=== PATIENT | male | born 1980 | race Caucasian/White ===

== ENCOUNTER 2017-10-15 15:56 | Inpatient (IN) | payer OTHER ==
[2017-10-15] MEDS ORDERED: SODIUM CHLORIDE 0.9% 1,000 ML IV STA ×2 (16:32)
[2017-10-15] MEDS ORDERED: MORPHINE SULFATE 4 MG/0.8 ML SYRINGE (INJ) IVP STA (16:32)
[2017-10-15] MEDS ORDERED: ONDANSETRON 4 MG/2 ML VIAL IVP STA (16:33)
[2017-10-15] MEDS ORDERED: ONDANSETRON 4 MG/2 ML VIAL IVP PRN (16:33)
[2017-10-15] MEDS ORDERED: PANTOPRAZOLE 40 MG/10 ML VIAL IVP STA (16:33)
--- NOTE | 2017-10-15 16:45 | ED ---
General Adult HPI - General Chief complaint: Abdominal Pain Stated complaint: Abd pain Time Seen by Provider: 10/15/17 16:12 Source: patient, EMS Mode of arrival: EMS Limitations: no limitations - Related Data Home Medications Medication Instructions Recorded Confirmed Dextroamphetamine/Amphetamine 10 mg PO QAM 10/15/17 10/15/17 [Adderall Xr] Allergies Allergy/AdvReac Type Severity Reaction Status Date / Time No Known Allergies Allergy Verified 10/15/17 16:06 Review of Systems ROS Statement: Those systems with pertinent positive or pertinent negative responses have been documented in the HPI. ROS Other: All systems not noted in ROS Statement are negative. Past Medical History Additional Past Medical History / Comment(s): hep C History of Any Multi-Drug Resistant Organisms: None Reported Past Surgical History: Hernia Repair Past Psychological History: ADD/ADHD Smoking Status: Never smoker Past Alcohol Use History: None Reported Past Drug Use History: None Reported General Exam Limitations: no limitations Course Vital Signs 10/15/17 16:07 Temperature 98.1 F Pulse Rate 94 Respiratory 18 Rate Blood Pressure 106/51 O2 Sat by Pulse 96 Oximetry Disposition Clinical Impression: Acute abdomen, Acute appendicitis Disposition: ADMITTED IP TO THIS HOSP Condition: Fair Is patient prescribed a controlled substance at d/c from ED?: No Referrals: Estevan Cherry MD [Primary Care Provider] - 1-2 days
[2017-10-15] MEDS ORDERED: ROCURONIUM BROMIDE 10 MG/ML 10 ML VIAL IV ONE (17:49)
[2017-10-15] MEDS ORDERED: MIDAZOLAM 2 MG/2 ML VIAL ONE (17:49)
[2017-10-15] MEDS ORDERED: DEXAMETHASONE SOD PHOS (MDV) 100 MG/10 ML VIAL ONE (17:49)
[2017-10-15] MEDS ORDERED: SUCCINYLCHOLINE CHLORIDE 100 MG/5 ML SYR IV ONE (17:49)
[2017-10-15] MEDS ORDERED: GLYCOPYRROLATE 0.2 MG/ML 2 ML VIAL ONE (17:49)
[2017-10-15] MEDS ORDERED: KETOROLAC 30 MG/ML 1 ML VIAL ONE (17:49)
[2017-10-15] MEDS ORDERED: fentaNYL (PF) 50 MCG/ML 2 ML AMP ONE (17:49)
[2017-10-15] MEDS ORDERED: PROPOFOL 10 MG/ML 20 ML VIAL IV ONE (17:49)
[2017-10-15] MEDS ORDERED: NEOSTIGMINE 1 MG/ML 10 ML VIAL ONE (17:49)
--- NOTE | 2017-10-15 18:00 | P.GSHP ---
History of Present Illness H&P Date: 10/15/17 Chief Complaint: Acute appendicitis Patient with a three-day history of abdominal pain. Started periumbilical and shifted over the last 2 days to the right midabdomen. Some nausea and vomiting. Appetite diminished. Pain was so bad he was in tears earlier today. Low-grade fevers per the family. No change in bowel habits. White blood cell count elevated at 20. CAT scan showed a thickened appendix with inflammation in the right midabdomen. Patient has a high riding cecum. No history of similar events. Patient has chronic lung problems from prior pneumonia. - Review of Systems Comment: The patient denies any acute changes in vision or hearing, no dysphagia or odynophagia, no chest pain or shortness of breath, no dysuria or hematuria, no headache, no runny nose, no rectal bleeding or melena, no unexplained weight loss Past Medical History Additional Past Medical History / Comment(s): hep C History of Any Multi-Drug Resistant Organisms: None Reported Past Surgical History: Hernia Repair Past Psychological History: ADD/ADHD Smoking Status: Never smoker Past Alcohol Use History: None Reported Past Drug Use History: None Reported Medications and Allergies Home Medications Medication Instructions Recorded Confirmed Type Atomoxetine HCl [Strattera] 60 mg PO DAILY 10/15/17 10/15/17 History Citalopram Hydrobromide [CeleXA] 20 mg PO DAILY 10/15/17 10/15/17 History Dextroamphetamine/Amphetamine 20 mg PO QAM 10/15/17 10/15/17 History [Adderall Xr] cloNIDine HCL [Catapres] 0.1 mg PO DAILY 10/15/17 10/15/17 History Allergies Allergy/AdvReac Type Severity Reaction Status Date / Time No Known Allergies Allergy Verified 10/15/17 17:34 Surgical - Exam Vital Signs Temp Pulse Resp BP Pulse Ox 98.1 F 94 18 106/51 96 10/15/17 16:07 10/15/17 16:07 10/15/17 16:07 10/15/17 16:07 10/15/17 16:07 Physical exam: General: Well-developed, well-nourished HEENT: Normocephalic, sclerae nonicteric Abdomen: Moderate right mid abdominal tenderness, nondistended Extremities: No edema Neuro: Alert and oriented Assessment and Plan (1) Acute appendicitis Narrative/Plan: Patient with history exam and diagnostics supporting the diagnosis of acute appendicitis. Will proceed with laparoscopic, possible open appendectomy. Risks of bleeding, infection, ureteral injury, bowel injury, abscess, conversion to an open procedure reviewed. He understands and wishes to proceed. Patient was given Versed prior to the patient signing consent. Consent was obtained then in a verbal fashion and also from the patient's significant other. Current Visit: Yes Status: Acute Code(s): K35.80 - UNSPECIFIED ACUTE APPENDICITIS SNOMED Code(s): 99328417
[2017-10-15] MEDS ORDERED: LACTATED RINGERS 1,000 ML IV ONE ×2 (18:05→18:19)
[2017-10-15] MEDS ORDERED: BUPIVACAINE (PF) 0.25% 30 ML VIAL SQ ONE ×2 (18:15)
[2017-10-15] MEDS ORDERED: ACETAMINOPHEN TAB 325 MG TAB PO PRN (18:36)
[2017-10-15] MEDS ORDERED: NALOXONE 0.4 MG/ML 1 ML VIAL IV PRN (18:36)
[2017-10-15] MEDS ORDERED: HYDROcodone/APAP 5-325MG 1 EACH TAB PO PRN (18:36)
--- NOTE | 2017-10-15 18:44 | P.OP ---
Date of Procedure: 10/15/17 Procedure(s) Performed: PREOPERATIVE DIAGNOSIS: Acute appendicitis POSTOPERATIVE DIAGNOSIS: Same PROCEDURE: Laparoscopic appendectomy SURGEON: Sebastian EBL: Total ANESTHESIA: General COMPLICATIONS: None OPERATIVE PROCEDURE: The patient was brought and placed on the operating table in the supine position. The patient was placed under general anesthesia. The abdomen was prepped and draped in the usual sterile fashion. Given the location appendix I chose to enter the abdominal cavity to the left and superior of the umbilicus using an optical 5 mm trocar. Insufflation took place to 15 mmHg. An additional 5 mm suprapubic trocar was placed under direct visualization as well as a 12 mm left lower quadrant trocar under direct visualization. The appendix was inspected. It was acutely inflamed. The mesoappendix was dissected. The base of the appendix was divided using a linear 45 mm intestinal stapler. The mesentery itself was divided using a flynn load stapler. The area was then irrigated. A small amount of bleeding was seen along the staple line and controlled using a 12 mm clipper. The area was then irrigated once again. No further purulence or bleeding was seen. The appendix was brought out of the peritoneal cavity through the left lower quadrant trocar site using an Endo Catch bag. The fascia at the 12 mm site was closed using a Zaheer-Irene 0 Vicryl stitch. The skin at all 3 sites was closed using 4-0 Monocryl sutures. Steri-Strips and sterile dressings then applied. DISPOSITION: Stable to recovery room
[2017-10-15] MEDS: SODIUM CHLORIDE 0.9% 1,000 ML IV ONE (20:50)
[2017-10-15] MEDS: MORPHINE SULFATE 4 MG/0.8 ML SYRINGE (INJ) IVP PRN (20:55)
[2017-10-15] MEDS: KETOROLAC 30 MG/ML 1 ML VIAL IVP SCH (20:56)
[2017-10-15 22:05] VITALS: RESP 16
[2017-10-15] MEDS: HEPARIN SODIUM,PORCINE 5,000 UNIT/ML 1 ML VIAL SQ SCH (23:40)
[2017-10-15] MEDS: PIPERACILLIN-TAZOBACTAM 3.375 GM in DEXTROSE/WATER 1 50ML.BAG IVPB SCH (23:40)
[2017-10-16] MEDS: KETOROLAC 30 MG/ML 1 ML VIAL IVP SCH ×3 (01:00→12:40)
[2017-10-16] MEDS: SODIUM CHLORIDE 0.9% 1,000 ML IV ONE (01:01)
[2017-10-16] MEDS: MORPHINE SULFATE 4 MG/0.8 ML SYRINGE (INJ) IVP PRN ×2 (05:59→09:48)
[2017-10-16 07:15] VITALS: BP 94/53; PULSE 98; TEMP 98
[2017-10-16] MEDS: PIPERACILLIN-TAZOBACTAM 3.375 GM in DEXTROSE/WATER 1 50ML.BAG IVPB SCH (08:14)
[2017-10-16] MEDS: HEPARIN SODIUM,PORCINE 5,000 UNIT/ML 1 ML VIAL SQ SCH (08:14)
[2017-10-16] MEDS ORDERED: PANTOPRAZOLE 40 MG/10 ML VIAL IVP SCH (09:00)
--- NOTE | 2017-10-16 11:24 | P.CONS ---
History of Present Illness - Reason for Consult Recommendations regarding hypertensive medications - History of Present Illness Patient is admitted for three-day history of abdominal pain found to have appendicitis underwent appendectomy last night and patient the is clinically doing well did pass gas is able to tolerate full liquid diet. Patient is on clonidine 0.1 mg only on as-needed basis but his blood pressure is kind of low apparently patient has history of anxiety whenever he becomes anxious his blood pressure goes up because of which patient was started on clonidine. I do not believe patient requires clonidine. Clonidine will be discontinued upon discharge rest of his psychiatric medications will be managed as an outpatient by his psychiatrist or PCP Review of Systems REVIEW OF SYSTEMS: CONSTITUTIONAL: No fever, no malaise, no fatigue. HEENT: No recent visual problems or hearing problems. Denied any sore throat. CARDIOVASCULAR: No chest pain, orthopnea, PND, no palpitations, no syncope. PULMONARY: No shortness of breath, no cough, no hemoptysis. GASTROINTESTINAL: No diarrhea, no nausea, no vomiting, no abdominal pain. Normoactive bowel sounds. NEUROLOGICAL: No headaches, no weakness, no numbness. HEMATOLOGICAL: Denies any bleeding or petechiae. GENITOURINARY: Denies any burning micturition, frequency, or urgency. MUSCULOSKELETAL/RHEUMATOLOGICAL: Denies any joint pain, swelling, or any muscle pain. ENDOCRINE: Denies any polyuria or polydipsia. The rest of the 14-point review of systems is negative. Past Medical History Additional Past Medical History / Comment(s): hep C History of Any Multi-Drug Resistant Organisms: None Reported Past Surgical History: Hernia Repair Past Psychological History: ADD/ADHD Smoking Status: Never smoker Past Alcohol Use History: None Reported Past Drug Use History: None Reported Medications and Allergies Home Medications Medication Instructions Recorded Confirmed Type Atomoxetine HCl [Strattera] 60 mg PO DAILY 10/15/17 10/15/17 History Citalopram Hydrobromide [CeleXA] 20 mg PO DAILY 10/15/17 10/15/17 History Dextroamphetamine/Amphetamine 20 mg PO QAM 10/15/17 10/15/17 History [Adderall Xr] Hydrocodone/Acetaminophen [[place] 1 - 2 each PO Q4HR PRN #14 tab 10/15/17 Rx 5-325] Allergies Allergy/AdvReac Type Severity Reaction Status Date / Time No Known Allergies Allergy Verified 10/15/17 17:34 Physical Exam Vitals: Vital Signs Temp Pulse Pulse Pulse Resp BP BP 10/16/17 07:00 98 F 98 16 94/53 10/16/17 01:10 98.1 F 85 16 101/56 10/15/17 21:30 66 105/55 10/15/17 21:15 72 111/73 10/15/17 21:00 76 109/70 10/15/17 20:45 91 114/75 10/15/17 20:30 94 122/78 10/15/17 20:15 83 116/69 10/15/17 20:00 88 122/59 10/15/17 19:45 97.7 F 71 16 119/58 10/15/17 19:30 65 14 108/69 10/15/17 19:15 86 16 118/74 10/15/17 19:00 75 16 104/68 10/15/17 17:24 98 F 83 18 111/78 10/15/17 16:07 98.1 F 94 18 106/51 Pulse Ox 10/16/17 07:00 95 10/16/17 01:10 94 L 10/15/17 21:30 10/15/17 21:15 10/15/17 21:00 10/15/17 20:45 10/15/17 20:30 10/15/17 20:15 10/15/17 20:00 10/15/17 19:45 99 10/15/17 19:30 99 10/15/17 19:15 99 10/15/17 19:00 97 10/15/17 17:24 98 10/15/17 16:07 96 Intake and Output 10/15/17 10/16/17 10/16/17 22:59 06:59 14:59 Intake Total 400 Output Total 40 Balance 360 Intake: IV 400 Output: Urine 30 Estimated Blood Loss 10 Other: Voiding Method Toilet # Voids 1 Weight 104.326 kg PHYSICAL EXAMINATION: GENERAL: The patient is alert and oriented x3, not in any acute distress. Well developed, well nourished. HEENT: Pupils are round and equally reacting to light. EOMI. No scleral icterus. No conjunctival pallor. Normocephalic, atraumatic. No pharyngeal erythema. No thyromegaly. CARDIOVASCULAR: S1 and S2 present. No murmurs, rubs, or gallops. PULMONARY: Chest is clear to auscultation, no wheezing or crackles. ABDOMEN: Soft, abdominal binder in place normoactive bowel sounds. MUSCULOSKELETAL: No joint swelling or deformity. EXTREMITIES: No cyanosis, clubbing, or pedal edema. NEUROLOGICAL: Gross neurological examination did not reveal any focal deficits. SKIN: No rashes. Assessment and Plan Plan: -Acute appendicitis: Status post appendectomy patient is okay to be discharged from medical perspective pain management as per primary service -Mild hypotension: Expected in the perioperative period I do not believe patient will require clonidine as mentioned above. -History of hepatitis C patient will need to follow up with gastroenterology as an outpatient -ADHD Patient is clinically doing well no signs or symptoms of infection at this point of time patient can be discharged from medical perspective whenever it is appropriate from surgical point of view.
[2017-10-16 12:40] VITALS: BMI 28.0
[2017-10-16] MEDS ORDERED: MORPHINE SULFATE 4 MG/ML SYRINGE IVP PRN (15:00)
--- NOTE | 2017-10-16 15:37 | P.DS ---
Providers Date of admission: 10/15/17 16:32 Expected date of discharge: 10/16/17 Attending physician: Prasanth Cortes Consults: 10/15/17 18:36 Consult Physician Routine Consulting Provider: Julisa Bhatia Consult Reason/Comments: med mgmt Do you want consulting provider notified?: Yes Primary care physician: Estevan Cherry - Discharge Diagnosis(es) (1) Acute appendicitis Patient minute yesterday for acute appendicitis. Doing well at this time. Pain is resolved. He is anxious to go home. He is tolerating his diet. Incisions are clean and dry. Will follow-up in the office 1 week. Current Visit: Yes Status: Acute Patient Condition at Discharge: Fair Plan - Discharge Summary Discharge Rx Participant: Yes New Discharge Prescriptions: New Hydrocodone/Acetaminophen [[place] 5-325] 1 - 2 each PO Q4HR PRN #14 tab PRN Reason: pain Discontinued cloNIDine HCL [Catapres] 0.1 mg PO DAILY No Action Dextroamphetamine/Amphetamine [Adderall Xr] 20 mg PO QAM Citalopram Hydrobromide [CeleXA] 20 mg PO DAILY Atomoxetine HCl [Strattera] 60 mg PO DAILY Discharge Medication List Atomoxetine HCl [Strattera] 60 mg PO DAILY 10/15/17 [History] Citalopram Hydrobromide [CeleXA] 20 mg PO DAILY 10/15/17 [History] Dextroamphetamine/Amphetamine [Adderall Xr] 20 mg PO QAM 10/15/17 [History] Hydrocodone/Acetaminophen [[place] 5-325] 1 - 2 each PO Q4HR PRN #14 tab 10/15/17 [Rx] Follow up Appointment(s)/Referral(s): Prasanth Cortes MD [Medical Doctor] - 11/01/17 1:00 pm Patient Instructions/Handouts: Laparoscopic Appendectomy (DC)
== END 2017-10-16 15:30 | disposition home or self-care (01) | DRG 343 ==
LOC: EC 15:56 → 3SUR 16:32
PROVIDERS: ADMIT Surgery; ATTEND Surgery
PROC: 0DTJ4ZZ Resection of Appendix, Percutaneous Endoscopic Approach (ICD-10-PCS; principal; 2017-10-15 17:45)
DX: K35.80 Unspecified acute appendicitis (principal); B19.20 Unspecified viral hepatitis C without hepatic coma; F90.9 Attention-deficit hyperactivity disorder, unspecified type; I95.9 Hypotension, unspecified; F41.9 Anxiety disorder, unspecified; Z87.19 Personal history of other diseases of the digestive system; Z79.891 Long term (current) use of opiate analgesic; Z87.01 Personal history of pneumonia (recurrent); Z79.899 Other long term (current) drug therapy
CPT/HCPCS: 88304; 96361; 96374; 96375; 99284

== ENCOUNTER → 2017-10-26 | Outpatient (CLI) | payer OTHER ==
[2017-10-26 13:19] LABS: Blood Urea Nitrogen 11 mg/dL (9-20)
--- NOTE | 2017-10-26 14:55 | CT ---
EXAMINATION TYPE: CT abdomen pelvis w con DATE OF EXAM: 10/26/2017 COMPARISON: NONE INDICATION: Left lower quadrant pain after having appendectomy 5--18. DLP: 1097.5 mGycm, Automated exposure control for dose reduction was used. CONTRAST: 100 mL of Isovue M300. Study performed with Oral Contrast TECHNIQUE: Axial images were obtained from above the diaphragm to the pubic rami in the axial plane a t 5 mm thick sections. Reconstructed images are reviewed on the computer in the coronal plane. FINDINGS: Limited CT sections are obtained the lung bases. Some mild streak opacities are at the right lung ba se likely on the basis of atelectasis. The right diaphragm is somewhat elevated. CT ABDOMEN: Liver: Normal Spleen: Normal Pancreas: Normal Adrenal glands: The adrenal glands are normal. Gallbladder: Normal Kidneys: No masses are evident. No hydronephrosis is present. No cysts are present. Delayed images were obtained through the kidneys, which remain unremarkable. Aorta: Normal Inferior vena cava: Normal. CT PELVIS: Loops of bowel within the abdomen and pelvis are normal. There are loops of bowel which are incom pletely distended or lack oral contrast limiting their evaluation. Diverticulosis without acute diver ticulitis is within the sigmoid colon. Appendix: Not visualized compatible with the patient's surgical history. No right lower quadrant absc ess is evident. Urinary bladder: Normal. Genitourinary structures: Osseous structures: No suspicious lytic or sclerotic lesions. IMPRESSIONS: 1. Diverticulosis without acute diverticulitis.
== END | disposition home or self-care (01) ==
LOC: RADCTMAIN 12:47
PROVIDERS: ATTEND Surgery
DX: K57.30 Diverticulosis of large intestine without perforation or abscess without bleeding (principal); R10.32 Left lower quadrant pain
CPT/HCPCS: 82565; 84520; 74177; 36415; Q9967

== ENCOUNTER → 2017-12-22 | Outpatient (CLI) | payer OTHER ==
--- NOTE | 2017-12-22 11:29 | FL ---
EXAMINATION TYPE: FL sniff test without CXR DATE OF EXAM: 12/22/2017 COMPARISON: Radiographs 11/22/2017 HISTORY: 37-year-old male possible paralysis of right hemidiaphragm, shortness of breath, limitations and activities, syncope is bent over, reports that the right lung was damaged from pneumonia. TECHNIQUE: Real-time fluoroscopy during quiet breathing, deep breathing, and sniffing maneuver. Total fluoroscopy time: 21 seconds. Total images: 8 FINDINGS: The patient's right hemidiaphragm is elevated at baseline. During quiet breathing, there is disorganized movement of the right hemidiaphragm with either no move ment or some paradoxical movement noted. During deep breathing, the paradoxical movement is accentuated. During sniffing maneuver, the paradoxical movement of the right hemidiaphragm is markedly accentuated . 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
== END | disposition home or self-care (01) ==
LOC: RADFLMAIN 10:16
PROVIDERS: ATTEND Internal Medicine
DX: J98.6 Disorders of diaphragm (principal)
CPT/HCPCS: 76000

== ENCOUNTER 2018-01-03 02:34 | Observation (INO) | payer OTHER ==
[2018-01-03] MEDS ORDERED: SODIUM CHLORIDE 0.9% 1,000 ML BAG ONE (03:35)
[2018-01-03] MEDS ORDERED: KETOROLAC 30 MG/ML 1 ML VIAL ONE (03:35)
[2018-01-03] MEDS ORDERED: SODIUM CHLORIDE 0.9% 1,000 ML IV ONE (05:32)
[2018-01-03] MEDS ORDERED: HYDROmorphone 1 MG/ML 1 ML SYRINGE IVP STA (05:35)
[2018-01-03 05:42] LABS: Appearance,Urine Clear (Clear); Bilirubin,Urine Negative (Negative); Blood,Urine Negative (Negative); Color,Urine Yellow; Glucose,Urine (UA) Negative (Negative); Ketones,Urine Negative (Negative); Leukocyte Esterase,Urine Negative (Negative); Mucus,Urine Occasional /hpf; Nitrite,Urine Negative (Negative); PH, Urine 6.5 (5.0-8.0); Protein,Urine Trace (Negative); RBC,Urine <1 /hpf (0-5); Specific Gravity,Urine 1.022 (1.001-1.035); WBC,Urine 1 /hpf (0-5)
[2018-01-03 05:43] LABS: Amphetamine Screen,Urine Detected (NotDetected); Barbiturate Screen,Urine Not Detected (NotDetected); Benzodiazepines Screen,Urine Not Detected (NotDetected); Cocaine Screen,Urine Not Detected (NotDetected); Methadone Screen, Urine Not Detected (NotDetected); Opiate Screen,Urine Not Detected (NotDetected); Oxycodone Screen, Urine Not Detected (NotDetected); Phencyclidine Screen,Urine Not Detected (NotDetected); Tricyclic Antidepressant,Urine Not Detected (NotDetected); Urn Cannabinoid Scrn Not Detected (NotDetected)
[2018-01-03 05:50] LABS: ALT 177 U/L (21-72); AST 91 U/L (17-59); Albumin 3.7 g/dL (3.5-5.0); Alkaline Phosphatase 69 U/L (38-126); Amylase 51 U/L (30-110); Anion Gap 7 mmol/L; Blood Urea Nitrogen 15 mg/dL (9-20); Calcium 9.2 mg/dL (8.4-10.2); Carbon Dioxide 25 mmol/L (22-30); Chloride 108 mmol/L (98-107); Glucose 111 mg/dL (74-99); Lipase 98 U/L (23-300); Potassium 3.9 mmol/L (3.5-5.1); Sodium 140 mmol/L (137-145); Total Bilirubin 0.5 mg/dL (0.2-1.3); Total Protein 6.7 g/dL (6.3-8.2)
[2018-01-03 05:56] LABS: Basophils # (A) 0.1 k/uL (0-0.2); Basophils % (A) 1 %; Eosinophils # (A) 0.1 k/uL (0-0.7); Eosinophils % (A) 2 %; HCT 42.1 % (39.0-53.0); HGB 14.6 gm/dL (13.0-17.5); Lymphocytes # (A) 1.7 k/uL (1.0-4.8); Lymphocytes % (A) 27 %; MCH 31.6 pg (25.0-35.0); MCHC 34.7 g/dL (31.0-37.0); MCV 91.2 fL (80.0-100.0); Mean Platelet Volume 7.2; Monocytes # (A) 0.5 k/uL (0-1.0); Monocytes % (A) 7 %; Neutrophils # (A) 3.8 k/uL (1.3-7.7); Neutrophils % (A) 61 %; Platelet Count 219 k/uL (150-450); RBC 4.62 m/uL (4.30-5.90); RDW 13.5 % (11.5-15.5); WBC 6.3 k/uL (3.8-10.6)
--- NOTE | 2018-01-03 08:10 | US ---
EXAMINATION TYPE: US scrotum with doppler. Grayscale and color Doppler Duplex imaging performed of t he scrotum. DATE OF EXAM: 01/03/2018 COMPARISON: CT abdomen and pelvis earlier today CLINICAL HISTORY: Pain. Right testicle and groin pain x 2 days, history of multiple right inguinal he rnias EXAM MEASUREMENTS: TESTICLES: Right Testicle: 4.2 x 2.9 x 3.0 cm, homogeneous Left Testicle: 3.7 x 2.1 x 2.6 cm, homogeneous EPIDIDYMIS HEAD: Right Epididymis: 1.4 x 0.8 x 0.9 cm Left Epididymis: 1.5 x 1.4 x 2.2 cm Doppler performed to assess for testicular vascularity; good bilateral color flow and waveforms are s een. Presence of hydroceles: small amount of fluid inferior to bilateral testicles Presence of varicoceles: no Left epididymis: 1.4 x 0.9 x 1.7cm cystic area, ? cluster of small cysts vs. 1 larger bilobed cyst Right inguinal canal: scanned at patient's area of pain, appears wnl at this time. Comparison views shows symmetric blood flow to both testicles. IMPRESSION: No recurrent hernia which correlates with CT earlier today. No suspicious diminished or i ncreased blood flow to right testicle.
--- NOTE | 2018-01-03 10:02 | CT ---
INDICATION: Trauma TECHNIQUE: CT acquisition is performed through the abdomen and pelvis on the administration of 100 mL Isovue 300 IV contrast. Early and delayed postcontrast images are acquired. Coronal and sagittal reformatted images are provided. DOSE INFORMATION: DLP 814.40 mGy-cm. One or more of the following dose reduction techniques were used: automated exposure control, adjustment of the mA and/or kV according to patient size, use of iterative reconstruction technique. COMPARISON: None. FINDINGS: The right hemidiaphragm is elevated. The lung bases are clear. The liver is enlarged and reduced in attenuation, suggesting steatosis. The gallbladder, spleen, pancreas, and adrenal glands are unremarkable. Both kidneys are similar in size and enhancement. There is no hydronephrosis or perinephric stranding. There has been prior appendectomy with clips visualized at the cecal base. There are no obstructive or inflammatory changes of the bowel. Urinary bladder and prostate are unremarkable. There is no free fluid or free air. There is a very small fat-containing left inguinal hernia. There are no acute osseous findings. IMPRESSION: 1. No CT evidence of acute or inflammatory process in the abdomen or pelvis. 2. Very small fat-containing left inguinal hernia.
[2018-01-03] MEDS: HYDROmorphone 1 MG/ML 1 ML SYRINGE IM PRN ×2 (10:13→14:04)
[2018-01-03] MEDS ORDERED: KETOROLAC 30 MG/ML 1 ML VIAL IVP PRN (15:35)
[2018-01-03] MEDS: HYDROcodone/APAP 5-325MG 1 EACH TAB PO PRN (15:47)
--- NOTE | 2018-01-03 16:17 | P.HPIM ---
History of Present Illness 37-year-old gentleman came in with complaints of severe right inguinal pain patient had history of inguinal hernia, had 3 surgeries in the past pain has been going on for about a week much worse patient's pain is about 8/10 in severity associated nausea denied any fever chills. Clinically patient appears to have inguinal hernia with possibly small bowel or even strangulated hernia. Computed tomography scan of the abdomen did show bowel loops in the scrotum but ultrasound did not reveal any bowel loops. Patient denied any fever chills patient still is in severe pain. Patient is getting Dilaudid will start him on Toradol and GI prophylaxis as well. Review of Systems REVIEW OF SYSTEMS: CONSTITUTIONAL: No fever, no malaise, no fatigue. HEENT: No recent visual problems or hearing problems. Denied any sore throat. CARDIOVASCULAR: No chest pain, orthopnea, PND, no palpitations, no syncope. PULMONARY: No shortness of breath, no cough, no hemoptysis. GASTROINTESTINAL: As mentioned in HPI NEUROLOGICAL: No headaches, no weakness, no numbness. HEMATOLOGICAL: Denies any bleeding or petechiae. GENITOURINARY: Denies any burning micturition, frequency, or urgency. MUSCULOSKELETAL/RHEUMATOLOGICAL: Denies any joint pain, swelling, or any muscle pain. ENDOCRINE: Denies any polyuria or polydipsia. The rest of the 14-point review of systems is negative. 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 History of Any Multi-Drug Resistant Organisms: None Reported Past Surgical History: Appendectomy, Hernia Repair, Orthopedic Surgery, Tonsillectomy Additional Past Surgical History / Comment(s): rt forearm injury with surgery, lap appendectomy, R inguinal hernia surgeries (2 or 3), teeth extractions Past Anesthesia/Blood Transfusion Reactions: No Reported Reaction Smoking Status: Light tobacco smoker - Past Family History Father Family Medical History: Hypertension Additional Family Medical History / Comment(s): Father was murdered. Mother Family Medical History: Cancer, Diabetes Mellitus, Hypertension Additional Family Medical History / Comment(s): Mother of lung cancer at the age of 42 yrs. Medications and Allergies Home Medications Medication Instructions Recorded Confirmed Type Albuterol Inhaler [Ventolin Hfa 1 - 2 puff INHALATION RT-Q6H PRN 07/03/17 History Inhaler] Citalopram Hydrobromide [CeleXA] 20 mg PO DAILY 10/15/17 01/03/18 History Dextroamphetamine/Amphetamine 20 mg PO QAM 10/15/17 01/03/18 History [Adderall Xr] Fluticasone/Salmeterol [Advair Hfa 2 puff INHALATION RT-BID 01/03/18 01/03/18 History 115-21 Mcg Inhaler] OXcarbazepine [Trileptal] 300 mg PO BID 01/03/18 01/03/18 History QUEtiapine FUMARATE 50 mg PO HS 01/03/18 01/03/18 History Allergies Allergy/AdvReac Type Severity Reaction Status Date / Time No Known Allergies Allergy Verified 01/03/18 07:49 Physical Exam Vitals: Vital Signs Temp Pulse Pulse Resp BP BP Pulse Ox 01/03/18 15:00 97.4 F L 78 16 127/81 96 01/03/18 14:37 96.9 F L 74 18 140/82 98 01/03/18 11:00 98.0 F 77 18 127/68 98 01/03/18 06:22 98.4 F 73 16 132/82 98 Intake and Output 01/03/18 01/03/18 01/03/18 06:59 14:59 22:59 Other: Weight 96.071 kg PHYSICAL EXAMINATION: GENERAL: The patient is alert and oriented x3, not in any acute distress. Well developed, well nourished. HEENT: Pupils are round and equally reacting to light. EOMI. No scleral icterus. No conjunctival pallor. Normocephalic, atraumatic. No pharyngeal erythema. No thyromegaly. CARDIOVASCULAR: S1 and S2 present. No murmurs, rubs, or gallops. PULMONARY: Chest is clear to auscultation, no wheezing or crackles. ABDOMEN: Soft, nontender, nondistended, normoactive bowel sounds. No palpable organomegaly. She and has severe tenderness in the right scrotum does appear to have bowel loops into the right scrotal area. MUSCULOSKELETAL: No joint swelling or deformity. EXTREMITIES: No cyanosis, clubbing, or pedal edema. NEUROLOGICAL: Gross neurological examination did not reveal any focal deficits. SKIN: No rashes. Results CBC & Chem 7: 01/03/18 03:30 01/03/18 03:30 Labs: Abnormal Lab Results - Last 24 Hours (Table) 01/03/18 01/03/18 Range/Units 03:30 03:36 Chloride 108 H (98-107) mmol/L Glucose 111 H (74-99) mg/dL AST 91 H (17-59) U/L ALT 177 H (21-72) U/L Urine Protein Trace H (Negative) Urine Mucus Occasional H (None) /hpf Ur Amphetamines Screen Detected H (NotDetected) Thrombosis Risk Factor Assmnt - Choose All That Apply Any of the Below Risk Factors Present?: Yes Each Factor Represents 1 point: Serious lung disease incl. pneumonia (< 1month) Other Risk Factors: No Other congenital or acquired thrombophilia - If yes, enter type in comment: No Thrombosis Risk Factor Assessment Total Risk Factor Score: 1 Thrombosis Risk Factor Assessment Level: Low Risk Assessment and Plan Plan: -Possible strangulated right inguinal hernia: Surgery was consulted patient will be started on Toradol Pepcid. -Mildly elevated liver enzymes we'll repeat compresses metabolic profile tomorrow patient does have history of hepatitis C probably secondary to chronic hep C. -Chronic liver disease from hepatitis C previous history of IV drug use -ADD and depression: Continue his home medications.
--- NOTE | 2018-01-03 17:03 | P.GSCN ---
History of Present Illness Consult date: 01/03/18 History of present illness: This is a 37-year-old male with complex past medical history. He recently had an appendectomy 2 months ago. He has also had multiple greater than 3 right inguinal hernia repairs. He's had multiple recurrent right inguinal hernias. He had these done at an outside hospital. He states he's had them done both laparoscopic and open before in the past. The most recent was several years ago. He states that he has been having chronic right inguinal pain. He states that this been going on for very long time however recently over the last couple days the pain began getting worse. He denies any nausea vomiting he's passing normal bowel movements. He states the pain is worse when the area is touched and he states that extends down into his scrotum the pain is electric and sharp. 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 and [place]. Past Medical History Past Medical History: Hypertension, Liver Disease, Pneumonia Additional Past Medical History / Comment(s): Hepatitis C from past IVDA-clean x 3 years except for 1 slip, extensive pneumonia R lung and the lung is "paralyzed and collapsed" as well as R side of diaghram is paralyzed-to have lung surgery at [facility], SOB with any exertion, past R inguinal hernias with surgeries, 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, low back pain/DDD, hypertension particularly with anxiety. History of Any Multi-Drug Resistant Organisms: None Reported Past Surgical History: Appendectomy, Hernia Repair, Orthopedic Surgery, Tonsillectomy Additional Past Surgical History / Comment(s): rt forearm injury with surgery, lap appendectomy, R inguinal hernia surgeries (2 or 3), teeth extractions Past Anesthesia/Blood Transfusion Reactions: No Reported Reaction Smoking Status: Light tobacco smoker - Past Family History Father Family Medical History: Hypertension Additional Family Medical History / Comment(s): Father was murdered. Mother Family Medical History: Cancer, Diabetes Mellitus, Hypertension Additional Family Medical History / Comment(s): Mother of lung cancer at the age of 42 yrs. Medications and Allergies Home Medications Medication Instructions Recorded Confirmed Type Albuterol Inhaler [Ventolin Hfa 1 - 2 puff INHALATION RT-Q6H PRN 07/03/17 History Inhaler] Citalopram Hydrobromide [CeleXA] 20 mg PO DAILY 10/15/17 01/03/18 History Dextroamphetamine/Amphetamine 20 mg PO QAM 10/15/17 01/03/18 History [Adderall Xr] Fluticasone/Salmeterol [Advair Hfa 2 puff INHALATION RT-BID 01/03/18 01/03/18 History 115-21 Mcg Inhaler] OXcarbazepine [Trileptal] 300 mg PO BID 01/03/18 01/03/18 History QUEtiapine FUMARATE 50 mg PO HS 01/03/18 01/03/18 History Allergies Allergy/AdvReac Type Severity Reaction Status Date / Time No Known Allergies Allergy Verified 01/03/18 07:49 Surgical - Exam Osteopathic Statement: *. No significant issues noted on an osteopathic structural exam other than those noted in the History and Physical/Consult. Vital Signs Temp Pulse Resp BP Pulse Ox 98.4 F 73 16 132/82 98 01/03/18 06:22 01/03/18 06:22 01/03/18 06:22 01/03/18 06:22 01/03/18 06:22 - General well developed, well nourished - Neck no masses - Respiratory normal expansion, normal respiratory effort - Cardiovascular Rhythm: regular - Abdomen Right groin with multiple scars. There is dense scar tissue over right inguinal canal. Palpation of this re-creates pain down into his scrotum. Right groin inspected for hernia no palpable hernia at this time. Abdomen: soft, non tender - Neurologic normal coordination, normal sensation - Psychiatric oriented to time, oriented to person, oriented to place Results - Labs 01/03/18 03:30 01/03/18 03:30 Abnormal Lab Results - Last 24 Hours (Table) 01/03/18 01/03/18 Range/Units 03:30 03:36 Chloride 108 H (98-107) mmol/L Glucose 111 H (74-99) mg/dL AST 91 H (17-59) U/L ALT 177 H (21-72) U/L Urine Protein Trace H (Negative) Urine Mucus Occasional H (None) /hpf Ur Amphetamines Screen Detected H (NotDetected) Diabetes panel 01/03/18 Range/Units 03:30 Sodium 140 (137-145) mmol/L Potassium 3.9 (3.5-5.1) mmol/L Chloride 108 H (98-107) mmol/L Carbon Dioxide 25 (22-30) mmol/L BUN 15 (9-20) mg/dL Creatinine 0.90 (0.66-1.25) mg/dL Glucose 111 H (74-99) mg/dL Calcium 9.2 (8.4-10.2) mg/dL AST 91 H (17-59) U/L ALT 177 H (21-72) U/L Alkaline Phosphatase 69 (38-126) U/L Total Protein 6.7 (6.3-8.2) g/dL Albumin 3.7 (3.5-5.0) g/dL Calcium panel 01/03/18 Range/Units 03:30 Calcium 9.2 (8.4-10.2) mg/dL Albumin 3.7 (3.5-5.0) g/dL Pituitary panel 01/03/18 Range/Units 03:30 Sodium 140 (137-145) mmol/L Potassium 3.9 (3.5-5.1) mmol/L Chloride 108 H (98-107) mmol/L Carbon Dioxide 25 (22-30) mmol/L BUN 15 (9-20) mg/dL Creatinine 0.90 (0.66-1.25) mg/dL Glucose 111 H (74-99) mg/dL Calcium 9.2 (8.4-10.2) mg/dL Adrenal panel 01/03/18 Range/Units 03:30 Sodium 140 (137-145) mmol/L Potassium 3.9 (3.5-5.1) mmol/L Chloride 108 H (98-107) mmol/L Carbon Dioxide 25 (22-30) mmol/L BUN 15 (9-20) mg/dL Creatinine 0.90 (0.66-1.25) mg/dL Glucose 111 H (74-99) mg/dL Calcium 9.2 (8.4-10.2) mg/dL Total Bilirubin 0.5 (0.2-1.3) mg/dL AST 91 H (17-59) U/L ALT 177 H (21-72) U/L Alkaline Phosphatase 69 (38-126) U/L Total Protein 6.7 (6.3-8.2) g/dL Albumin 3.7 (3.5-5.0) g/dL - Imaging CT scan - abdomen: report reviewed CT scan - pelvis: report reviewed Assessment and Plan Assessment: Right inguinodynia Plan: Patient has had multiple surgeries in his right inguinal hernia. He currently does not have recurrence this verified on CT he probably has extensive scarring and involvement and entrapment of the ilioinguinal nerve. Given this he may be discharged. He does not want surgery at this time. He does not want anything to delay his lung surgery down at [facility] in 1 month. I discussed with him that should he have symptoms of a recurrent hernia or obstructive symptoms to return to the hospital. No plans for acute surgical intervention
[2018-01-03] MEDS: HYDROmorphone 1 MG/ML 1 ML SYRINGE IVP PRN ×2 (18:16→22:21)
--- NOTE | 2018-01-03 18:56 | P.PN ---
Progress Note - Text Progress Note Date: 01/03/18 I saw and examined the patient before finding out that Dr. gonzalez had previously seen the patient. He does not have a significant hernia with anything concerning such as bowel contents. He does have a small herniation with fat. Perivenous CT the fascia was extremely attenuated on the right side. He's had previous laparoscopic and open inguinal hernia repairs. I explained to he and his significant other that this pain may be due to a groin strain from tearing of the tissue or sometimes the scar tissue from the hernia itself can cause ileo-inguinal nerve entrapment and pain. I recommended a course of nonsteroidal anti-inflammatories and recheck in the office in one week. These people frequently can benefit from a local steroid injection if the nonsteroidal was not helpful.
[2018-01-03] MEDS: ALBUTEROL NEBULIZED 2.5 MG/3 ML INHALATION PRN (19:53)
[2018-01-03] MEDS: SYMBICORT 160-4.5 MCG INHALER INHALATION SCH (19:53)
[2018-01-03] MEDS: FAMOTIDINE 20 MG TAB PO SCH (21:00)
[2018-01-03] MEDS: OXcarbazepine 300 MG TAB PO SCH (21:00)
[2018-01-03] MEDS ORDERED: QUEtiapine 50 MG TAB PO SCH (21:00)
[2018-01-04] MEDS: HYDROmorphone 1 MG/ML 1 ML SYRINGE IVP PRN (06:20)
[2018-01-04 07:14] VITALS: BP 97/60; PULSE 68; RESP 18; TEMP 97.4
[2018-01-04 08:33] LABS: HCT 44.5 % (39.0-53.0); HGB 14.5 gm/dL (13.0-17.5); MCH 30.5 pg (25.0-35.0); MCHC 32.5 g/dL (31.0-37.0); MCV 93.7 fL (80.0-100.0); Mean Platelet Volume 6.9; Platelet Count 251 k/uL (150-450); RBC 4.75 m/uL (4.30-5.90); RDW 13.5 % (11.5-15.5); WBC 6.6 k/uL (3.8-10.6)
[2018-01-04] MEDS: FAMOTIDINE 20 MG TAB PO SCH (08:33)
[2018-01-04] MEDS: OXcarbazepine 300 MG TAB PO SCH (08:34)
[2018-01-04] MEDS: HYDROcodone/APAP 5-325MG 1 EACH TAB PO PRN (08:37)
[2018-01-04] MEDS: SYMBICORT 160-4.5 MCG INHALER INHALATION SCH (08:46)
[2018-01-04] MEDS: ALBUTEROL NEBULIZED 2.5 MG/3 ML INHALATION PRN (08:46)
[2018-01-04 08:57] LABS: ALT 176 U/L (21-72); AST 102 U/L (17-59); Albumin 3.5 g/dL (3.5-5.0); Alkaline Phosphatase 61 U/L (38-126); Anion Gap 5 mmol/L; Blood Urea Nitrogen 10 mg/dL (9-20); Calcium 8.4 mg/dL (8.4-10.2); Carbon Dioxide 29 mmol/L (22-30); Chloride 104 mmol/L (98-107); Glucose 100 mg/dL (74-99); Potassium 4.7 mmol/L (3.5-5.1); Sodium 138 mmol/L (137-145); Total Bilirubin 0.3 mg/dL (0.2-1.3); Total Protein 6.3 g/dL (6.3-8.2)
[2018-01-04] MEDS ORDERED: DOCUSATE 100 MG CAP PO SCH (09:00)
[2018-01-04] MEDS ORDERED: CITALOPRAM HYDROBROMIDE 20 MG TAB PO SCH (09:00)
--- NOTE | 2018-01-05 19:38 | P.DS ---
Providers Date of admission: 01/03/18 05:32 Expected date of discharge: 01/04/18 Attending physician: Julisa Garsia Consults: 01/03/18 05:32 Consult Physician Urgent Consulting Provider: Mame Gil Consult Reason/Comments: Right inguinal pain Do you want consulting provider notified?: Yes Primary care physician: Stated None [facility] Course: Final Diagnoses: -Right Inguinodynia. Extensive scarring, involvement,entrapment of ilionguinal nerve, as per surgery. -Mildly elevated liver enzymes,history of hepatitis C probably secondary to chronic hep C. -Chronic liver disease from hepatitis C previous history of IV drug use -ADD and depression Hospital course:37-year-old gentleman came in with complaints of severe right inguinal pain patient had history of inguinal hernia, had 3 surgeries in the past pain has been going on for about a week much worse patient's pain is about 8/10 in severity associated nausea denied any fever chills. Clinically patient appears to have inguinal hernia with possibly small bowel or even strangulated hernia. Computed tomography scan of the abdomen did show bowel loops in the scrotum but ultrasound did not reveal any bowel loops. Evaluated by surgery. No acute surgical intervention recommended at this time. Significant clinical improvement. Cleared by surgery for discharge. DC Pain management as per surgery. Patient is being discharged home in a stable condition with guarded prognosis. EXAMINATION: GENERAL: The patient is alert and oriented x3, not in any acute distress. CARDIOVASCULAR: S1 and S2 present. No murmurs, rubs, or gallops. PULMONARY: Chest is clear to auscultation, no wheezing or crackles. ABDOMEN: Soft, nontender, nondistended, normoactive bowel sounds. No palpable organomegaly. Right groin tenderness NEUROLOGICAL: Gross neurological examination did not reveal any focal deficits. The impression and plan of care has been dictated as directed. : I performed a history and examination of this patient, discussed the same with the dictator. I agree with the dictator's note ,documented as a scribe. Any additional findings or plans will be noted. Time taken: 35 minutes Patient Condition at Discharge: Stable Plan - Discharge Summary Discharge Rx Participant: No New Discharge Prescriptions: New Naproxen [Naprosyn] 500 mg PO Q12HR #60 tab Docusate [Colace] 100 mg PO BID cap Famotidine [Pepcid] 20 mg PO BID #60 tab Continue Albuterol Inhaler [Ventolin Hfa Inhaler] 1 - 2 puff INHALATION RT-Q6H PRN PRN Reason: Shortness Of Breath Dextroamphetamine/Amphetamine [Adderall Xr] 20 mg PO QAM Citalopram Hydrobromide [CeleXA] 20 mg PO DAILY OXcarbazepine [Trileptal] 300 mg PO BID Fluticasone/Salmeterol [Advair Hfa 115-21 Mcg Inhaler] 2 puff INHALATION RT- BID QUEtiapine FUMARATE 50 mg PO HS Discharge Medication List Albuterol Inhaler [Ventolin Hfa Inhaler] 1 - 2 puff INHALATION RT-Q6H PRN [History] Citalopram Hydrobromide [CeleXA] 20 mg PO DAILY 10/15/17 [History] Dextroamphetamine/Amphetamine [Adderall Xr] 20 mg PO QAM 10/15/17 [History] Fluticasone/Salmeterol [Advair Hfa 115-21 Mcg Inhaler] 2 puff INHALATION RT-BID 01/03/18 [History] Naproxen [Naprosyn] 500 mg PO Q12HR #60 tab 01/03/18 [Rx] OXcarbazepine [Trileptal] 300 mg PO BID 01/03/18 [History] QUEtiapine FUMARATE 50 mg PO HS 01/03/18 [History] Docusate [Colace] 100 mg PO BID cap 01/04/18 [Rx] Famotidine [Pepcid] 20 mg PO BID #60 tab 01/04/18 [Rx] Follow up Appointment(s)/Referral(s): Maria Victoria Michael NPC [REFERRING] - 01/08/18 10:45 am Mame Gil DO [Doctor of Osteopathic Medicine] - 01/16/18 11:15 am Ambulatory/Diagnostic Orders: Comprehensive Metabolic Panel [LAB.AMB] Time Frame: 3 Days, Location: None Selected Discharge Disposition: HOME SELF-CARE
== END 2018-01-04 11:02 | disposition home or self-care (01) ==
LOC: EC 02:34 → 4MS4W 05:32
PROVIDERS: ADMIT Hospitalist; ATTEND Hospitalist
DX: R10.31 Right lower quadrant pain (principal); L90.5 Scar conditions and fibrosis of skin; R74.8 Abnormal levels of other serum enzymes; Z86.19 Personal history of other infectious and parasitic diseases; G89.29 Other chronic pain; B18.2 Chronic viral hepatitis C; F32.9 Major depressive disorder, single episode, unspecified; F98.8 Other specified behavioral and emotional disorders with onset usually occurring in childhood and adolescence; R11.0 Nausea; J98.6 Disorders of diaphragm; M54.5 Low back pain; I10 Essential (primary) hypertension; F17.200 Nicotine dependence, unspecified, uncomplicated; Z87.01 Personal history of pneumonia (recurrent); Z98.890 Other specified postprocedural states; Z79.899 Other long term (current) drug therapy; Z79.51 Long term (current) use of inhaled steroids; Z83.3 Family history of diabetes mellitus; Z82.49 Family history of ischemic heart disease and other diseases of the circulatory system; Z80.1 Family history of malignant neoplasm of trachea, bronchus and lung
CPT/HCPCS: 99285; 96374 ×2; 96375 ×2; 96361 ×11; 96372 ×3; 96376 ×2; 36415; 94640 ×4; 80053 ×2; 82150; 83605; 83690; 85025; 85027; 81003; 80306; 93975; 76870; 74177; G0378 ×2; J1885; J1170 ×2; Q9967

== ENCOUNTER → 2018-02-15 | Outpatient (CLI) | payer OTHER ==
[2018-02-15 13:35] LABS: HCT 42.3 % (39.0-53.0); HGB 13.6 gm/dL (13.0-17.5); MCHC 32.1 g/dL (31.0-37.0); MCV 96.4 fL (80.0-100.0); Mean Platelet Volume 6.9; Platelet Count 236 k/uL (150-450); RBC 4.39 m/uL (4.30-5.90); RDW 13.3 % (11.5-15.5); WBC 6.7 k/uL (3.8-10.6)
[2018-02-15 13:53] LABS: Potassium 4.9 mmol/L (3.5-5.1)
== END | disposition home or self-care (01) ==
LOC: LABPAT 13:01
PROVIDERS: ATTEND Thoracic Surgery (Cardiothoracic Vascular Surgery)
DX: Z01.812 Encounter for preprocedural laboratory examination (principal); J98.6 Disorders of diaphragm
CPT/HCPCS: 36415; 80051; 82947; 85027; 86850; 86900; 86901

== ENCOUNTER 2018-02-22 05:45 | Inpatient (IN) | payer OTHER ==
[2018-02-21 09:00] VITALS: BMI 27.3
[~2018-02-22 05:45] MED LIST: DEXAMETHASONE SOD PHOSPHATE 10 MG/ML 1 ML VIAL IV ONE; LACTATED RINGERS 1,000 ML IV SCH; MIDAZOLAM 2 MG/2 ML VIAL IV PRN; ONDANSETRON 4 MG/2 ML VIAL IVP ONE; SCOPOLAMINE 1.5MG/72HR PATCH TRANSDERM ONE; ceFAZolin IN SWFI 2 GM/20 ML SYRINGE IVP ONE; fentaNYL (PF) 50 MCG/ML 2 ML AMP IV PRN
[2018-02-22 06:56] LABS: Glucose,Whole Blood 100 mg/dL (75-99)
[2018-02-22] MEDS ORDERED: NALOXONE 0.4 MG/ML 1 ML VIAL IV PRN (07:18)
[2018-02-22] MEDS ORDERED: ROPIVACAINE 250 MG, HYDROMORPHONE (PF) 5 MG in SODIUM CHLORIDE 0.9% 200 ML EPIDURAL PRN (07:18)
[2018-02-22 07:20] LABS: INR 1.1 (<1.2); Prothrombin Time 10.4 sec (9.0-12.0)
[2018-02-22] MEDS ORDERED: MIDAZOLAM 2 MG/2 ML VIAL ONE (07:32)
[2018-02-22] MEDS ORDERED: HYDROmorphone (PF) 1 MG/ML ONE (07:32)
[2018-02-22] MEDS ORDERED: PROPOFOL 10 MG/ML 20 ML VIAL IV ONE (07:32)
[2018-02-22] MEDS ORDERED: SUCCINYLCHOLINE CHLORIDE 100 MG/5 ML SYR IV ONE (07:32)
[2018-02-22] MEDS ORDERED: NEOSTIGMINE 1 MG/ML 10 ML VIAL ONE (07:32)
[2018-02-22] MEDS ORDERED: GLYCOPYRROLATE 0.2 MG/ML 2 ML VIAL ONE (07:32)
[2018-02-22] MEDS ORDERED: LIDOCAINE 1% INJ 10MG/ML (20 ML MDV) ONE (07:32)
[2018-02-22] MEDS ORDERED: ROCURONIUM BROMIDE 10 MG/ML 10 ML VIAL IV ONE (07:32)
[2018-02-22] MEDS ORDERED: fentaNYL (PF) 50 MCG/ML 2 ML AMP ONE (07:32)
[2018-02-22] MEDS ORDERED: SODIUM CHLORIDE 0.9% 50 ML with ceFAZolin 1,000 MG IV ONE ×4 (07:35)
[2018-02-22] MEDS ORDERED: LACTATED RINGERS 1,000 ML IV ONE (09:33)
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
[2018-02-22] MEDS ORDERED: BISACODYL 10 MG SUPP RECTAL PRN (10:27)
[2018-02-22] MEDS ORDERED: ALBUTEROL NEBULIZED 2.5 MG/3 ML INHALATION PRN (10:27)
--- NOTE | 2018-02-22 10:54 | XR ---
EXAMINATION TYPE: XR chest 1V DATE OF EXAM: 02/22/2018 COMPARISON: Chest x-ray 07/03/2017, 11/22/[address] abdomen pelvis 01/03/2018 HISTORY: Postop right thoracotomy TECHNIQUE: Single frontal view of the chest is obtained. FINDINGS: Interval right-sided chest tube placement, tip may be abutting the mediastinum. Right bhumika diaphragm no longer elevated. No sizable pneumothorax or pleural effusion is seen. Right hemidiaphrag m shows some irregular contour which is likely postoperative. Patient is rotated. Patchy basilar dens ity present bilaterally. IMPRESSION: Interval procedural change is, probable basilar atelectasis. Chest tube as described.
[2018-02-22] MEDS: ACETAMINOPHEN IV (For NPO) 1,000 MG in EMPTY BAG 1 BAG IVPB SCH ×3 (11:44→23:49)
[2018-02-22] MEDS: DEXTROSE 5%-0.45% NACL 1,000 ML IV SCH (11:45)
[2018-02-22] MEDS: HYDROmorphone 1 MG/ML 1 ML SYRINGE IVP PRN ×5 (12:48→23:57)
[2018-02-22] MEDS: KETOROLAC 30 MG/ML 1 ML VIAL IVP PRN ×2 (13:11→19:55)
[2018-02-22] MEDS: ceFAZolin IN SWFI 2 GM/20 ML SYRINGE IVP SCH ×2 (16:53→23:49)
[2018-02-22] MEDS: HEPARIN SODIUM,PORCINE 5,000 UNIT/ML 1 ML VIAL SQ SCH ×2 (16:54→23:49)
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
[2018-02-22] MEDS: SYMBICORT 160-4.5 MCG INHALER INHALATION SCH (21:26)
[2018-02-22] MEDS: CITALOPRAM HYDROBROMIDE 20 MG TAB PO SCH (21:45)
[2018-02-22] MEDS: QUEtiapine 50 MG TAB PO SCH (21:46)
[2018-02-22] MEDS: OXcarbazepine 300 MG TAB PO SCH (21:46)
[2018-02-23] MEDS: ONDANSETRON 4 MG/2 ML VIAL IVP PRN ×2 (00:19→08:24)
[2018-02-23] MEDS: HYDROmorphone 1 MG/ML 1 ML SYRINGE IVP PRN ×6 (02:34→20:54)
[2018-02-23] MEDS: KETOROLAC 30 MG/ML 1 ML VIAL IVP PRN (02:34)
[2018-02-23] MEDS: ACETAMINOPHEN IV (For NPO) 1,000 MG in EMPTY BAG 1 BAG IVPB SCH (05:44)
--- NOTE | 2018-02-23 06:18 | P.PN ---
Subjective Progress Note Date: 02/23/18 I seen Jordan this morning he had pain overnight. I did assess the patient last night and increase his rate from 8-10 from 8 mL bolus through his epidural catheter. He did have some numbness over the right side of his anterior chest wall reported that he continued to have pain over the incision. His blood pressure was stables are stable. After the epidural catheter continued to run overnight the nurse called and said that the epidural catheter was leaking a lot. I examined the patient is morning and found the catheter was only at 6 cm at the skin so had been dislodged. I removed the catheter is morning and discussed with the patient and the nurse. The entire catheter was removed the tip was intact. The area was non-erythematous there is no fluctuance and the epidural catheter site. Patient can begin oral pain medications as needed Objective - Vital Signs Vital signs: Vital Signs Temp 97.8 F 02/23/18 03:41 Pulse 92 02/23/18 04:00 Resp 18 02/23/18 04:00 BP 113/75 02/23/18 03:41 Pulse Ox 95 02/23/18 03:41 Intake & Output 02/22/18 02/22/18 02/23/18 06:59 18:59 06:59 Intake Total 1200 120 Output Total 475 340 Balance 725 -220 Weight 102.058 kg 102.058 kg Intake: IV 1200 Intake, IV Titration 120 Amount Dextrose 5%-0.45% NaCl 1, 120 000 ml @ 40 mls/hr IV . Q24H [facility] Rx#:[id number] Output: Chest Tube Drainage 155 240 Right 155 240 Urine 290 100 Uretheral (Hernandez) 100 Estimated Blood Loss 30 Other: Voiding Method Indwelling Catheter Indwelling Catheter - Labs Labs: Abnormal Lab Results - Last 24 Hours (Table) 02/22/18 Range/Units 06:29 POC Glucose (mg/dL) 100 H (75-99) mg/dL
[2018-02-23] MEDS: DEXTROSE 5%-0.45% NACL 1,000 ML IV SCH (07:08)
[2018-02-23 07:25] LABS: Basophils % (A) 0 %; Eosinophils # (A) 0.1 k/uL (0-0.7); Eosinophils % (A) 1 %; HCT 44.5 % (39.0-53.0); HGB 14.7 gm/dL (13.0-17.5); Lymphocytes # (A) 2.4 k/uL (1.0-4.8); Lymphocytes % (A) 17 %; MCH 30.8 pg (25.0-35.0); MCV 93.3 fL (80.0-100.0); Mean Platelet Volume 6.9; Monocytes % (A) 7 %; Neutrophils # (A) 9.7 k/uL (1.3-7.7); Neutrophils % (A) 71 %; Platelet Count 261 k/uL (150-450); RBC 4.77 m/uL (4.30-5.90); RDW 13.4 % (11.5-15.5); WBC 13.6 k/uL (3.8-10.6)
[2018-02-23 07:37] LABS: Calcium 8.9 mg/dL (8.4-10.2); Potassium 4.4 mmol/L (3.5-5.1)
[2018-02-23] MEDS: SYMBICORT 160-4.5 MCG INHALER INHALATION SCH ×2 (07:56→20:16)
[2018-02-23] MEDS: OXcarbazepine 300 MG TAB PO SCH ×2 (10:07→20:55)
[2018-02-23] MEDS: HEPARIN SODIUM,PORCINE 5,000 UNIT/ML 1 ML VIAL SQ SCH ×2 (10:21→15:47)
[2018-02-23] MEDS: HYDROcodone/APAP 7.5-325MG 1 EACH TAB PO PRN ×3 (10:22→21:55)
[2018-02-23] MEDS ORDERED: KETOROLAC 30 MG/ML 1 ML VIAL IVP SCH (12:00)
[2018-02-23] MEDS ORDERED: METOCLOPRAMIDE 5 MG/ML 2 ML VIAL IVP SCH (12:00)
[2018-02-23] MEDS: SODIUM CHLORIDE 0.9% 1,000 ML IV SCH (12:20)
--- NOTE | 2018-02-23 12:46 | P.PN ---
Subjective Progress Note Date: 02/23/18 Principal diagnosis: Right diaphragmatic paralysis with paradoxical motion and symptomatic dyspnea on exertion, history of COPD, hypertension, liver disease, remote history of pneumonia, chronic hepatitis from past IV drug use, chronic low back pain and degenerative arthritis and history of chronic anxiety/depression. POD #1 right thoracotomy, right diaphragmatic plication, intercostal nerve blocks levels 5, 6, 7, 8 and 9 with cryotherapy. Patient is currently sitting up to his bedside edge. He is in no acute distress. Currently rates his pain to his chest tube insertion site at 6 out of 10 on the pain scale. He is using his incentive spirometry and achieving 1500 mL with encouragement. He reports he has been ambulating in his room without difficulty. He also reports that his breathing feels much improved since the surgery. Current laboratory results demonstrate a WBC count of 13.6, BUN of 41, and creatinine of 2.30. Objective - Vital Signs Vital signs: Vital Signs Temp 98.2 F 02/23/18 06:50 Pulse 89 02/23/18 06:50 Resp 18 02/23/18 07:09 BP 115/75 02/23/18 06:50 Pulse Ox 94 L 02/23/18 06:50 Intake & Output 02/22/18 02/23/18 02/23/18 18:59 06:59 18:59 Intake Total 1200 360 Output Total 475 790 200 Balance 725 -430 -200 Weight 102.058 kg 102.058 kg Intake: IV 1200 Intake, IV Titration 360 Amount Dextrose 5%-0.45% NaCl 1, 360 000 ml @ 40 mls/hr IV . Q24H [facility] Rx#:[id number] Output: Chest Tube Drainage 155 240 100 Right 155 240 100 Urine 290 550 100 Uretheral (Hernandez) 100 100 Estimated Blood Loss 30 Other: Voiding Method Indwelling Catheter Indwelling Catheter Indwelling Catheter # Bowel Movements 1 - Constitutional General appearance: Present: cooperative, no acute distress, obese - Respiratory Details: Lung sounds are essentially clear throughout, diminished to his right lower lobe. Respirations are symmetrical and nonlabored. Oxygen saturation are 94% on room air. He is achieving 1500 mL on his incentive spirometry with encouragement. Right pleural chest tube remains in place to water seal, no air leak is present. Chest tube is draining thin serosanguineous drainage. 240 mL output in the last 8 hours, 400 mL output since surgery. - Cardiovascular Details: Regular rhythm and rate. S1 and S2 present, negative for S3, gallop or murmur. Knee-high SCD in place to bilateral lower extremities. No edema present. - Gastrointestinal Gastrointestinal Comment(s): Abdomen is soft, nontender and nondistended. Active bowel sounds all 4 abdominal quadrants. Passing flatus. Tolerating oral intake. - Genitourinary Genitourinary Comment(s): Hernandez catheter for accurate I&O. Draining clear yellow urine. 550 mL output in the last 8 hours. - Integumentary Integumentary Comment(s): Right thoracotomy incision clean dry and approximated. No drainage or redness present. Skin is warm and dry. No clubbing or cyanosis present. Epidural was discontinued by anesthesia this morning. - Neurologic Neurologic: Present: CNII-XII intact - Musculoskeletal Musculoskeletal: Present: gait normal, strength equal bilaterally - Psychiatric Psychiatric: Present: A&O x's 3, appropriate affect, intact judgment & insight - Allied health notes Allied health notes reviewed: nursing - Labs CBC & Chem 7: 02/23/18 06:59 02/23/18 06:59 Labs: Abnormal Lab Results - Last 24 Hours (Table) 02/23/18 02/23/18 Range/Units 06:59 06:59 WBC 13.6 H (3.8-10.6) k/uL Neutrophils # 9.7 H (1.3-7.7) k/uL Sodium 133 L (137-145) mmol/L Chloride 95 L (98-107) mmol/L BUN 41 H (9-20) mg/dL Creatinine 2.30 H (0.66-1.25) mg/dL Glucose 112 H (74-99) mg/dL - Imaging and Cardiology Chest x-ray: report reviewed, image reviewed Assessment and Plan (1) Diaphragmatic paralysis Current Visit: Yes Status: Acute Code(s): J98.6 - DISORDERS OF DIAPHRAGM SNOMED Code(s): 61494996 (2) Hypertension Current Visit: Yes Status: Acute Code(s): I10 - ESSENTIAL (PRIMARY) HYPERTENSION SNOMED Code(s): 87919379 (3) Hepatitis C Current Visit: Yes Status: Acute Code(s): B19.20 - UNSPECIFIED VIRAL HEPATITIS C WITHOUT HEPATIC COMA SNOMED Code(s): 78522956 (4) COPD (chronic obstructive pulmonary disease) Current Visit: Yes Status: Acute Code(s): J44.9 - CHRONIC OBSTRUCTIVE PULMONARY DISEASE, UNSPECIFIED SNOMED Code(s): 11065568 (5) Chronic low back pain Current Visit: Yes Status: Acute Code(s): M54.5 - LOW BACK PAIN; G89.29 - OTHER CHRONIC PAIN SNOMED Code(s): 482939377 (6) Anxiety Current Visit: Yes Status: Acute Code(s): F41.9 - ANXIETY DISORDER, UNSPECIFIED SNOMED Code(s): 78498656 (7) Depression Current Visit: Yes Status: Acute Code(s): F32.9 - MAJOR DEPRESSIVE DISORDER , SINGLE EPISODE, UNSPECIFIED SNOMED Code(s): 54458665 Plan: 1. Keep right pleural chest tube to waterseal. 2. Repeat BMP now due to creatinine of 2.30. Discontinue Toradol and Reglan. 3. We will monitor daily labs and chest x-ray. 4. Pulmonary management recommendations per Dr. Lima. 5. Encourage use of his incentive spirometry every hour while awake. 6. Discontinue Hernandez catheter. 7. 0.9% normal saline at 75 mL an hour. 8. Encourage increase in activity as tolerated. Out of bed for all meals, ambulate in the hallway 3 times a day. 9. Add [place] home dose for pain management. Dilaudid 1 mg IV when necessary every 6 hours for breakthrough pain. 10. Further recommendations to follow based on patient's clinical course. Time with Patient: Greater than 30
[2018-02-23 12:54] LABS: Calcium 8.9 mg/dL (8.4-10.2); Potassium 4.7 mmol/L (3.5-5.1)
--- NOTE | 2018-02-23 13:05 | XR ---
EXAMINATION TYPE: XR chest 2V DATE OF EXAM: 02/23/2018 COMPARISON: 02/22/2018 INDICATION: Postop right thoracotomy TECHNIQUE: Frontal and lateral views of the chest are obtained. FINDINGS: The heart size is normal. The pulmonary vasculature is normal. There may be a small right apical pneumothorax. Right-sided chest tube is present. Air is overlying t he right neck which may be creating the pneumothorax impression. Follow-up is recommended. IMPRESSION: 1. Appears to be a small right apical pneumothorax estimated at 5%. This could be artifact from overl tha free air within the subcutaneous tissues of the neck. Chest tube is in position with the tip dir ected towards the right suprahilar region level.
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
[2018-02-23] MEDS: QUEtiapine 50 MG TAB PO SCH (20:55)
[2018-02-23] MEDS: CITALOPRAM HYDROBROMIDE 20 MG TAB PO SCH (20:55)
[2018-02-24] MEDS: SODIUM CHLORIDE 0.9% 1,000 ML IV SCH (00:29)
[2018-02-24] MEDS: HEPARIN SODIUM,PORCINE 5,000 UNIT/ML 1 ML VIAL SQ SCH ×3 (00:29→17:33)
[2018-02-24] MEDS: HYDROmorphone 1 MG/ML 1 ML SYRINGE IVP PRN ×4 (01:56→18:43)
[2018-02-24] MEDS: HYDROcodone/APAP 7.5-325MG 1 EACH TAB PO PRN ×4 (04:11→22:33)
--- NOTE | 2018-02-24 07:20 | XR ---
EXAMINATION TYPE: XR chest 2V DATE OF EXAM: 02/24/2018 HISTORY: post op thoracotomy. REFERENCE: Previous study dated 02/23/2018. FINDINGS: There continues to be a tiny right apical pneumothorax. Heart size is upper limits of normal. There is elevation of the left hemidiaphragm with respect to th e right. This may be secondary to overinflation of the right lung. The appearance is unchanged. IMPRESSION: CONTINUING SMALL, RIGHT APICAL PNEUMOTHORAX.
[2018-02-24 07:44] LABS: Basophils % (A) 0 %; Eosinophils # (A) 0.1 k/uL (0-0.7); Eosinophils % (A) 1 %; HCT 43.2 % (39.0-53.0); HGB 13.3 gm/dL (13.0-17.5); Lymphocytes # (A) 1.6 k/uL (1.0-4.8); Lymphocytes % (A) 16 %; MCHC 30.8 g/dL (31.0-37.0); MCV 97.6 fL (80.0-100.0); Mean Platelet Volume 7.3; Monocytes # (A) 0.9 k/uL (0-1.0); Monocytes % (A) 9 %; Neutrophils # (A) 7.3 k/uL (1.3-7.7); Neutrophils % (A) 72 %; Platelet Count 180 k/uL (150-450); RBC 4.43 m/uL (4.30-5.90); RDW 13.4 % (11.5-15.5); WBC 10.2 k/uL (3.8-10.6)
[2018-02-24 07:58] LABS: ALT 105 U/L (21-72); AST 75 U/L (17-59); Albumin 3.3 g/dL (3.5-5.0); Alkaline Phosphatase 77 U/L (38-126); Anion Gap 9 mmol/L; Blood Urea Nitrogen 20 mg/dL (9-20); Calcium 8.7 mg/dL (8.4-10.2); Carbon Dioxide 24 mmol/L (22-30); Chloride 102 mmol/L (98-107); Glucose 106 mg/dL (74-99); Potassium 5.3 mmol/L (3.5-5.1); Sodium 135 mmol/L (137-145); Total Bilirubin 0.7 mg/dL (0.2-1.3); Total Protein 6.4 g/dL (6.3-8.2)
[2018-02-24] MEDS ORDERED: KETOROLAC 30 MG/ML 1 ML VIAL IVP SCH (08:15)
[2018-02-24] MEDS: OXcarbazepine 300 MG TAB PO SCH ×2 (09:15→09:19)
[2018-02-24] MEDS: PANTOPRAZOLE 40 MG TABLET PO SCH (09:43)
[2018-02-24] MEDS: SYMBICORT 160-4.5 MCG INHALER INHALATION SCH ×2 (09:45→20:37)
--- NOTE | 2018-02-24 10:36 | P.PN ---
Subjective Progress Note Date: 02/24/18 Principal diagnosis: Right diaphragmatic paralysis with paradoxical motion and symptomatic dyspnea on exertion. History of COPD, hypertension, liver disease, remote history of pneumonia, chronic hepatitis from past IV drug use, chronic low back pain, degenerative arthritis, and chronic anxiety/depression. POD #2 right thoracotomy, right diaphragmatic plication, intercostal nerve blocks levels 5, 6, 7, 8, and 9 with cryotherapy. Patient's currently sitting up in bed in no acute distress. Does state pain is not as controlled as it was the previous day when he was receiving IV Toradol. He states he did have an episode this morning where he coughed really hard and thought he momentarily "stopped breathing". Currently stable. Kidney function has returned to normal. Objective - Vital Signs Vital signs: Vital Signs Temp 98.5 F 02/24/18 02:10 Pulse 89 02/24/18 02:10 Resp 16 02/24/18 02:10 BP 118/60 02/24/18 02:10 Pulse Ox 94 L 02/24/18 02:10 Intake & Output 02/23/18 02/24/18 02/24/18 18:59 06:59 18:59 Intake Total 2655 Output Total 950 50 Balance -950 2605 Intake: Intake, IV Titration 635 Amount Sodium Chloride 0.9% 1, 635 000 ml @ 75 mls/hr IV . [id number] [facility] Rx#:[id number] Oral 2020 Output: Chest Tube Drainage 150 50 Right 150 50 Urine 800 Uretheral (Hernandez) 100 Other: Voiding Method Indwelling Catheter Toilet # Voids 2 # Bowel Movements 1 - Constitutional General appearance: Present: cooperative, no acute distress - Respiratory Details: Lungs sounds clear bilaterally. Respirations even, nonlabored. Currently on room air with oxygen saturation 94%. Able to achieve 1000 mL on his incentive spirometry. Effective cough. Right pleural chest tube was to waterseal, 35 mL serous drainage overnight, 250 mL in the last 24 hours, no air leak present. - Cardiovascular Details: S1, S2 present. Regular rate and rhythm. Palpable peripheral pulses bilaterally. No edema present. No calf pain or tenderness noted. - Gastrointestinal Gastrointestinal Comment(s): Abdomen soft, nontender, nondistended. Active bowel sounds 4 quadrants. Tolerating diet. - Genitourinary Genitourinary Comment(s): Continues to void clear, yellow urine. - Integumentary Integumentary Comment(s): Skin is warm and dry with evidence of good perfusion. Right posterolateral chest incision well approximated with Dermabond. - Neurologic Neurologic: Present: CNII-XII intact - Musculoskeletal Musculoskeletal: Present: gait normal, strength equal bilaterally - Psychiatric Psychiatric: Present: A&O x's 3, appropriate affect, intact judgment & insight - Allied health notes Allied health notes reviewed: nursing - Labs CBC & Chem 7: 02/24/18 06:13 02/24/18 06:13 Labs: Abnormal Lab Results - Last 24 Hours (Table) 02/23/18 02/24/18 02/24/18 Range/Units 12:26 06:13 06:13 MCHC 30.8 L (31.0-37.0) g/dL Sodium 133 L 135 L (137-145) mmol/L Potassium 5.3 H (3.5-5.1) mmol/L Chloride 96 L (98-107) mmol/L BUN 39 H (9-20) mg/dL Creatinine 1.87 H (0.66-1.25) mg/dL Glucose 110 H 106 H (74-99) mg/dL AST 75 H (17-59) U/L ALT 105 H (21-72) U/L Albumin 3.3 L (3.5-5.0) g/dL - Imaging and Cardiology Chest x-ray: report reviewed, image reviewed Assessment and Plan (1) Anxiety Current Visit: Yes Status: Chronic Code(s): F41.9 - ANXIETY DISORDER, UNSPECIFIED SNOMED Code(s): 92522809 (2) COPD (chronic obstructive pulmonary disease) Current Visit: Yes Status: Chronic Code(s): J44.9 - CHRONIC OBSTRUCTIVE PULMONARY DISEASE, UNSPECIFIED SNOMED Code(s): 12348558 (3) Chronic low back pain Current Visit: Yes Status: Chronic Code(s): M54.5 - LOW BACK PAIN; G89.29 - OTHER CHRONIC PAIN SNOMED Code(s): 125029382 (4) Depression Current Visit: Yes Status: Chronic Code(s): F32.9 - MAJOR DEPRESSIVE DISORDER, SINGLE EPISODE, UNSPECIFIED SNOMED Code(s): 95740618 (5) Diaphragmatic paralysis Current Visit: Yes Status: Chronic Code(s): J98.6 - DISORDERS OF DIAPHRAGM SNOMED Code(s): 46730286 (6) Hepatitis C Current Visit: Yes Status: Chronic Code(s): B19.20 - UNSPECIFIED VIRAL HEPATITIS C WITHOUT HEPATIC COMA SNOMED Code(s): 88206002 (7) Hypertension Current Visit: Yes Status: Chronic Code(s): I10 - ESSENTIAL (PRIMARY) HYPERTENSION SNOMED Code(s): 54014395 Plan: 1. Right pleural chest tube discontinued without incident, patient tolerated well. Dressing to remain in place 48 hours, reinforce with drainage. 2. Will obtain chest x-ray in the morning. If stable will discharge to home tomorrow. 3. Pain control with current medication regimen. 4. Bronchodilators per pulmonology. 5. Encourage incentive spirometry use 10 times every hour. 6. Hep-Lock IV. 7. Increase activity, ambulate in hallway. 8. More recommendations to follow. Time with Patient: Greater than 30
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
[2018-02-24] MEDS: CITALOPRAM HYDROBROMIDE 20 MG TAB PO SCH (21:54)
[2018-02-24] MEDS: QUEtiapine 50 MG TAB PO SCH (21:55)
[2018-02-25] MEDS: HYDROmorphone 1 MG/ML 1 ML SYRINGE IVP PRN ×2 (00:02→05:02)
[2018-02-25] MEDS: HEPARIN SODIUM,PORCINE 5,000 UNIT/ML 1 ML VIAL SQ SCH ×2 (01:21→08:38)
[2018-02-25] MEDS: HYDROcodone/APAP 7.5-325MG 1 EACH TAB PO PRN (05:16)
--- NOTE | 2018-02-25 06:54 | XR ---
EXAMINATION TYPE: XR chest 2V DATE OF EXAM: 02/25/2018 HISTORY: post diaphram plication. REFERENCE: Previous study dated 02/24/2018. FINDINGS: The patient's right pleural drain has been removed. No definite pneumothorax is identified. There is worsening right basilar airspace disease. There is a small right effusion. Heart size upper limits of normal. There is atelectatic change at the left lung base and a small left effusion. IMPRESSION: 1. WORSENING BIBASILAR AIRSPACE DISEASE. 2. WORSENING EFFUSIONS, GREATER ON THE RIGHT THAN THE LEFT. 3. RESOLUTION OF THE PATIENT'S RIGHT-SIDED APICAL PNEUMOTHORAX.
[2018-02-25 07:31] LABS: HCT 39.2 % (39.0-53.0); HGB 12.3 gm/dL (13.0-17.5); MCH 30.5 pg (25.0-35.0); MCHC 31.3 g/dL (31.0-37.0); MCV 97.4 fL (80.0-100.0); Mean Platelet Volume 7.2; Platelet Count 210 k/uL (150-450); RBC 4.02 m/uL (4.30-5.90); RDW 13.5 % (11.5-15.5); WBC 7.9 k/uL (3.8-10.6)
[2018-02-25 07:46] LABS: Anion Gap 6 mmol/L; Blood Urea Nitrogen 13 mg/dL (9-20); Calcium 8.6 mg/dL (8.4-10.2); Carbon Dioxide 29 mmol/L (22-30); Chloride 104 mmol/L (98-107); Glucose 110 mg/dL (74-99); Potassium 4.9 mmol/L (3.5-5.1); Sodium 139 mmol/L (137-145)
[2018-02-25 07:51] VITALS: BP 143/83; PULSE 85; RESP 20; TEMP 98.1
[2018-02-25] MEDS ORDERED: IBUPROFEN 600 MG TAB PO PRN (07:56)
[2018-02-25] MEDS ORDERED: HYDROcodone/APAP 7.5-325MG 1 EACH TAB PO PRN (07:56)
--- NOTE | 2018-02-25 08:35 | P.PN ---
Subjective Progress Note Date: 02/25/18 Principal diagnosis: Right diaphragmatic paralysis with paradoxical motion and symptomatic dyspnea on exertion. History of COPD, hypertension, liver disease, remote history of pneumonia, chronic hepatitis from past IV drug use, chronic low back pain, degenerative arthritis, and chronic anxiety/depression. POD #3 right thoracotomy, right diaphragmatic plication, intercostal nerve blocks levels 5, 6, 7, 8, and 9 with cryotherapy. Patient's currently sitting up in bed in no acute distress. Does state pain is about the same as it was yesterday. Currently stable. Kidney function has returned to normal. The patient has been up ambulating in the hallway. Right pleural chest tube was discontinued yesterday. Objective - Vital Signs Vital signs: Vital Signs Temp 98.1 F 02/25/18 07:50 Pulse 85 02/25/18 07:50 Resp 20 02/25/18 07:50 BP 143/83 02/25/18 07:50 Pulse Ox 98 02/25/18 07:50 Intake & Output 02/24/18 02/25/18 02/25/18 18:59 06:59 18:59 Intake Total 960 1680 Output Total 400 Balance 560 1680 Weight 102.058 kg Intake: Intake, IV Titration 600 Amount Sodium Chloride 0.9% 1, 600 000 ml @ 75 mls/hr IV . [id number] [facility] Rx#:[id number] Oral 960 1080 Output: Urine 400 Other: Voiding Method Toilet Toilet Toilet # Voids 2 3 # Bowel Movements 1 - Constitutional General appearance: Present: cooperative, no acute distress - Respiratory Details: Lungs sounds clear, diminished bilaterally. Respirations even, nonlabored. Currently on room air with oxygen saturation 98%. Able to achieve 2250 mL on his incentive spirometry. Effective cough. - Cardiovascular Details: S1, S2 present. Regular rate and rhythm. Palpable peripheral pulses bilaterally. No edema present. No calf pain or tenderness noted. - Gastrointestinal Gastrointestinal Comment(s): Abdomen soft, nontender, nondistended. Active bowel sounds 4 quadrants. Tolerating diet. - Genitourinary Genitourinary Comment(s): Continues to void clear, yellow urine. - Integumentary Integumentary Comment(s): Skin is warm and dry with evidence of good perfusion. Right posterolateral chest incision well approximated with Dermabond. - Neurologic Neurologic: Present: CNII-XII intact - Musculoskeletal Musculoskeletal: Present: gait normal, strength equal bilaterally - Psychiatric Psychiatric: Present: A&O x's 3, appropriate affect, intact judgment & insight - Allied health notes Allied health notes reviewed: nursing - Labs CBC & Chem 7: 02/25/18 06:53 02/25/18 06:53 Labs: Abnormal Lab Results - Last 24 Hours (Table) 02/25/18 02/25/18 Range/Units 06:53 06:53 RBC 4.02 L (4.30-5.90) m/uL Hgb 12.3 L (13.0-17.5) gm/dL Glucose 110 H (74-99) mg/dL - Imaging and Cardiology Chest x-ray: report reviewed, image reviewed Assessment and Plan (1) Anxiety Current Visit: Yes Status: Chronic Code(s): F41.9 - ANXIETY DISORDER, UNSPECIFIED SNOMED Code(s): 70395376 (2) COPD (chronic obstructive pulmonary disease) Current Visit: Yes Status: Chronic Code(s): J44.9 - CHRONIC OBSTRUCTIVE PULMONARY DISEASE, UNSPECIFIED SNOMED Code(s): 10543819 (3) Chronic low back pain Current Visit: Yes Status: Chronic Code(s): M54.5 - LOW BACK PAIN; G89.29 - OTHER CHRONIC PAIN SNOMED Code(s): 418178556 (4) Depression Current Visit: Yes Status: Chronic Code(s): F32.9 - MAJOR DEPRESSIVE DISORDER, SINGLE EPISODE, UNSPECIFIED SNOMED Code(s): 30391116 (5) Diaphragmatic paralysis Current Visit: Yes Status: Chronic Code(s): J98.6 - DISORDERS OF DIAPHRAGM SNOMED Code(s): 89860255 (6) Hepatitis C Current Visit: Yes Status: Chronic Code(s): B19.20 - UNSPECIFIED VIRAL HEPATITIS C WITHOUT HEPATIC COMA SNOMED Code(s): 15755285 (7) Hypertension Current Visit: Yes Status: Chronic Code(s): I10 - ESSENTIAL (PRIMARY) HYPERTENSION SNOMED Code(s): 28209656 Plan: 1. Pain control with current medication regimen. [place] dose increased to 2 tablets every 6 hours as needed as well as ibuprofen added for better pain control. 2. Bronchodilators per pulmonology. 3. Encourage incentive spirometry use 10 times every hour. 4. Increase activity, ambulate in hallway. 5. Likely will discharge to home this afternoon. Patient to follow-up with Dr. Sotelo in 2 weeks with chest x-ray obtained prior to appointment. Time with Patient: Greater than 30
[2018-02-25] MEDS: OXcarbazepine 300 MG TAB PO SCH (08:38)
[2018-02-25] MEDS: PANTOPRAZOLE 40 MG TABLET PO SCH (08:38)
[2018-02-25] MEDS: SYMBICORT 160-4.5 MCG INHALER INHALATION SCH (08:41)
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
== END 2018-02-25 10:50 | disposition home or self-care (01) | DRG 164 ==
LOC: 2ORMAIN 05:45 → 3SUR 10:29
PROVIDERS: ADMIT Thoracic Surgery (Cardiothoracic Vascular Surgery); ATTEND Thoracic Surgery (Cardiothoracic Vascular Surgery)
PROC: 0BQT0ZZ Repair Diaphragm, Open Approach (ICD-10-PCS; principal; 2018-02-22 07:30)
PROC: 3E0T3BZ Introduction of Anesthetic Agent into Peripheral Nerves and Plexi, Percutaneous Approach (ICD-10-PCS; principal; 2018-02-22 07:30)
DX: J98.6 Disorders of diaphragm (principal); J90 Pleural effusion, not elsewhere classified; J93.83 Other pneumothorax; B18.2 Chronic viral hepatitis C; F17.200 Nicotine dependence, unspecified, uncomplicated; F32.9 Major depressive disorder, single episode, unspecified; F43.10 Post-traumatic stress disorder, unspecified; F90.9 Attention-deficit hyperactivity disorder, unspecified type; G89.29 Other chronic pain; I10 Essential (primary) hypertension; J44.9 Chronic obstructive pulmonary disease, unspecified; M19.90 Unspecified osteoarthritis, unspecified site; Z87.820 Personal history of traumatic brain injury; Z79.51 Long term (current) use of inhaled steroids; Z79.899 Other long term (current) drug therapy; Z80.1 Family history of malignant neoplasm of trachea, bronchus and lung; Z82.49 Family history of ischemic heart disease and other diseases of the circulatory system; Z87.01 Personal history of pneumonia (recurrent); Z87.81 Personal history of (healed) traumatic fracture; M54.5 Low back pain; Z79.891 Long term (current) use of opiate analgesic
CPT/HCPCS: 71045; 71046; 80048; 80053; 82040; 85025; 85027; 85610; 86850; 86900; 86901; 94640

== ENCOUNTER 2018-03-05 17:54 | Emergency (ER) | payer OTHER ==
[2018-03-05 18:23] VITALS: PULSE 85
[2018-03-05] MEDS ORDERED: RX INFO: IV CONTRAST WAS GIVEN 1 EACH MISC MISCELLANE PRN (19:20)
[2018-03-05] MEDS ORDERED: HYDROmorphone 0.5 MG/0.5 ML SYRINGE IVP STA (19:20)
[2018-03-05] MEDS ORDERED: SODIUM CHLORIDE 0.9% 500 ML IV STA (19:21)
--- NOTE | 2018-03-05 19:23 | ED ---
General Adult HPI - General Chief complaint: Shortness of Breath Stated complaint: Diff Breathing Source: patient Mode of arrival: ambulatory Limitations: no limitations - History of Present Illness Initial comments: Dictation was produced using Entrec dictation software. please excuse any grammatical, word or spelling errors. Chief Complaint: 37-year-old male presents with right-sided chest pain status post diaphragmatic plication done 2 weeks ago. History of Present Illness: 37-year-old male who presents with severe chest pain. 2 weeks ago he had a diaphragmatic plication performed by Dr. Deepak horton at this hospital. Since being discharged from the hospital post surgery he has been having constant right-sided chest pain. States that the pain is of his entire right chest worse with deep inspiration, truncal rotation and lying flat. Continue Percocets however has not been improving his pain symptoms. Patient denies any constitutional symptoms. The ROS documented in this emergency department record has been reviewed and confirmed by me. Those systems with pertinent positive or negative responses have been documented in the HPI. All other systems are other negative and/or noncontributory. - Related Data Home Medications Medication Instructions Recorded Confirmed Albuterol Inhaler [Ventolin Hfa 1 - 2 puff INHALATION RT-Q6H PRN 07/03/17 Inhaler] Dextroamphetamine/Amphetamine 20 mg PO QAM 10/15/17 03/05/18 [Adderall Xr] OXcarbazepine [Trileptal] 300 mg PO BID 01/03/18 03/05/18 QUEtiapine FUMARATE 50 mg PO HS 01/03/18 03/05/18 Budesonide-Formot 160-4.5 Mcg 2 puff INHALATION RT-BID PRN 02/21/18 03/05/18 [Symbicort 160-4.5 Mcg Inhaler] Citalopram Hydrobromide [CeleXA] 40 mg PO HS 02/21/18 03/05/18 HYDROcodone/APAP 7.5-325MG [[place] 1 tab PO Q6HR PRN 02/21/18 03/05/18 7.5-325] Albuterol Nebulized [Ventolin 2.5 mg INHALATION RT-QID PRN 03/05/18 03/05/18 Nebulized] Previous Rx's Medication Instructions Recorded Ibuprofen [Motrin] 600 mg PO Q6HR PRN tab 02/25/18 oxyCODONE-APAP 5-325MG [Percocet 1 tab PO Q4HR PRN 3 Days #18 tab 03/05/18 5-325 mg] Allergies Allergy/AdvReac Type Severity Reaction Status Date / Time No Known Allergies Allergy Verified 03/05/18 19:11 Review of Systems ROS Statement: Those systems with pertinent positive or pertinent negative responses have been documented in the HPI. ROS Other: All systems not noted in ROS Statement are negative. 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, low back pain/DDD History of Any Multi-Drug Resistant Organisms: None Reported Past Surgical History: Appendectomy, Hernia Repair, Orthopedic Surgery, Tonsillectomy Additional Past Surgical History / Comment(s): rt forearm injury with surgery, R inguinal hernia surgeries x 3, oral surgery Past Anesthesia/Blood Transfusion Reactions: Previous Problems w/ Anesthesia Additional Past Anesthesia/Blood Transfusion Reaction / Comment(s): " I wake up and start fighting and swinging" Past Psychological History: ADD/ADHD, Anxiety, Depression, PTSD Smoking Status: Current some day smoker Past Alcohol Use History: None Reported Past Drug Use History: Cocaine, Heroin - Past Family History Father Family Medical History: Hypertension Additional Family Medical History / Comment(s): Father was murdered. Mother Family Medical History: Cancer Additional Family Medical History / Comment(s): Mother of lung cancer at the age of 42 yrs. Brother(s) Family Medical History: Deep Vein Thrombosis (DVT) General Exam - General Exam Comments Initial Comments: PHYSICAL EXAM: General Impression: Alert and oriented x3, acute distress secondary to pain HEENT: Normocephalic atraumatic, extra-ocular movements intact, pupils equal and reactive to light bilaterally, mucous membranes moist. Cardiovascular: Heart regular rate and rhythm, S1&S2 audible, no murmurs, rubs or gallops Chest: Lungs clear to auscultation bilaterally, no rhonchi, no wheeze, no rales Abdomen: Bowel sounds present, abdomen soft, non-tender, non-distended, no organomegaly Musculoskeletal: Pulses present and equal in all extremities, no peripheral edema Motor: Power 5/5 bilaterally, no focal deficits noted Neurological: CN II-XII grossly intact, no focal motor or sensory deficits noted Skin: Right-sided chest scar is clean dry intact without any signs of infection. Psych: Normal affect and mood Limitations: no limitations Course Vital Signs 03/05/18 18:20 Temperature 98.5 F Pulse Rate 85 Respiratory 20 Rate Blood Pressure 129/88 O2 Sat by Pulse 98 Oximetry Medical Decision Making - Medical Decision Making ED course: 37-year-old male presents with right-sided chest pain status post diaphragmatic plication done 2 weeks ago. Vital signs upon arrival are within acceptable limits. Patient is not febrile and vital signs are stable. Patient appears well except for pain. Laboratory evaluation obtained. Mild leukocytosis of 13.8. Rest of CBC unremarkable. Metabolic panel is unremarkable. Chest x-ray shows mildly advance right pleural parenchymal changes. Chest CT was obtained showing a right pleural effusion with right-sided passive atelectasis. Discussed patient case in detail with Dr. Sotelo who is his primary surgeon that performed the procedure. Dr. Sotelo claims that patient is drug seeking. Dr. Sotelo recommends providing patient prescription for pain medication. Patient states he does have an appointment with Dr. Sotelo on . Patient is given multiple IV analgesics with improvement of pain. Discussed with patient that he is clear to go home if he feels as though his pain is controlled and to go to his appointment with cardiothoracic surgeon on . Patient feels well enough to go home. Discussed with patient that he should take 2 pills of his Percocet when his pain gets real severe. Patient told to return to the emergency Department with any worsening symptoms. Patient is understandable and agreeable to plan. Discussed in detail that patient should return should he develop any fever, chills night sweats or difficulty in breathing. - Lab Data Result diagrams: 03/05/18 19:35 03/05/18 19:35 Lab Results 03/05/18 03/05/18 Range/Units 19:35 19:35 WBC 13.8 H (3.8-10.6) k/uL RBC 5.04 (4.30-5.90) m/uL Hgb 15.6 D (13.0-17.5) gm/dL Hct 47.5 (39.0-53.0) % MCV 94.1 (80.0-100.0) fL MCH 31.0 (25.0-35.0) pg MCHC 32.9 (31.0-37.0) g/dL RDW 13.6 (11.5-15.5) % Plt Count 466 H D (150-450) k/uL Neutrophils % 75 % Lymphocytes % 15 % Monocytes % 7 % Eosinophils % 1 % Basophils % 0 % Neutrophils # 10.4 H (1.3-7.7) k/uL Lymphocytes # 2.0 (1.0-4.8) k/uL Monocytes # 0.9 (0-1.0) k/uL Eosinophils # 0.2 (0-0.7) k/uL Basophils # 0.1 (0-0.2) k/uL Sodium 139 (137-145) mmol/L Potassium 5.0 (3.5-5.1) mmol/L Chloride 102 (98-107) mmol/L Carbon Dioxide 28 (22-30) mmol/L Anion Gap 9 mmol/L BUN 18 (9-20) mg/dL Creatinine 0.84 (0.66-1.25) mg/dL Est GFR (CKD-EPI)AfAm >90 (>60 ml/min/1.73 sqM) Est GFR (CKD-EPI)NonAf >90 (>60 ml/min/1.73 sqM) Glucose 94 (74-99) mg/dL Calcium 9.7 (8.4-10.2) mg/dL Disposition Clinical Impression: Postoperative pain Disposition: HOME SELF-CARE Condition: Fair Instructions: Safe Use of Narcotics (ED) Prescriptions: oxyCODONE-APAP 5-325MG [Percocet 5-325 mg] 1 tab PO Q4HR PRN 3 Days #18 tab PRN Reason: Pain Is patient prescribed a controlled substance at d/c from ED?: Yes If prescribed controlled substance>3 days was MAPS reviewed?: Prescribed <3 Days Referrals: Eliseo Segovia MD [Primary Care Provider] - 1-2 days Time of Disposition: 22:07
[2018-03-05 19:58] LABS: Basophils # (A) 0.1 k/uL (0-0.2); Basophils % (A) 0 %; Eosinophils # (A) 0.2 k/uL (0-0.7); Eosinophils % (A) 1 %; HCT 47.5 % (39.0-53.0); Lymphocytes % (A) 15 %; MCHC 32.9 g/dL (31.0-37.0); MCV 94.1 fL (80.0-100.0); Mean Platelet Volume 6.9; Monocytes # (A) 0.9 k/uL (0-1.0); Monocytes % (A) 7 %; Neutrophils # (A) 10.4 k/uL (1.3-7.7); Neutrophils % (A) 75 %; RBC 5.04 m/uL (4.30-5.90); RDW 13.6 % (11.5-15.5); WBC 13.8 k/uL (3.8-10.6)
[2018-03-05 20:03] LABS: HGB 15.6 gm/dL (13.0-17.5); Platelet Count 466 k/uL (150-450)
[2018-03-05 20:15] LABS: Anion Gap 9 mmol/L; Blood Urea Nitrogen 18 mg/dL (9-20); Calcium 9.7 mg/dL (8.4-10.2); Carbon Dioxide 28 mmol/L (22-30); Chloride 102 mmol/L (98-107); Glucose 94 mg/dL (74-99); Sodium 139 mmol/L (137-145)
[2018-03-05] MEDS ORDERED: HYDROmorphone 1 MG/ML 1 ML SYRINGE IVP STA (20:54)
--- NOTE | 2018-03-05 21:07 | XR ---
EXAMINATION: XR chest 2V DATE AND TIME: 03/05/2018 8:19 PM CLINICAL INDICATION: Pain TECHNIQUE: PA and lateral COMPARISON: 02/25/2018 FINDINGS: The previously seen pleural-parenchymal process is redemonstrated, appears mildly increased when compared to the prior study. There is associated partial right lower lobe and partial right mid dle lobe airlessness. Remainder of the lungs are clear and well-expanded bilaterally. No pneumothorax. No evident left pleural effusion. Bones and soft tissues are negative for acute findings. IMPRESSION: MILDLY ADVANCED RIGHT PLEURAL-PARENCHYMAL CHANGES.
--- NOTE | 2018-03-05 21:44 | CT ---
EXAMINATION TYPE: CT chest w con DATE OF EXAM: 03/05/2018 COMPARISON: CT 07/03/2017 HISTORY: Surgery to diaphragm earlier this month. Increased shortness of breath. CT DLP: 442.7 mGycm Automated exposure control for dose reduction was used. CONTRAST: CT scan of the chest is performed with IV Contrast, patient injected with 100 mL of Isovue 300. FINDINGS: AIRWAYS: Normal. LUNGS/PLEURAL SPACES: The left lung is clear and well expanded. On the right there is a moderate-plu s pleural effusion layering dependently and tracking within the interlobar fissure. There is atelecta sis of approximately 25% of the right lung, particularly the right lower lobe posteriorly. Remainder of the right lung parenchyma is clear MEDIASTINUM: Thin high attenuation is seen in several points along the right hemidiaphragm, consisten t with the submitted clinical history of postoperative state. There is mild cardiomegaly with biventr icular enlargement. Pericardial space is negative. Aorta and pulmonary arterial tree are unremarkable as seen. There are no greater than 1 cm hilar or mediastinal lymph nodes. OSSEOUS STRUCTURES: No acute process. OTHER: No additional significant abnormality is seen. IMPRESSION: RIGHT PLEURAL EFFUSION WITH RIGHT-SIDED PASSIVE ATELECTASIS.
[2018-03-05] MEDS ORDERED: LIDOCAINE 5% PATCH TOPICAL SCH (22:15)
[2018-03-05 22:25] VITALS: BP 139/85; RESP 18; TEMP 98.2
== END 2018-03-05 22:25 | disposition home or self-care (01) ==
LOC: EC 17:54
DX: G89.18 Other acute postprocedural pain (principal); R07.9 Chest pain, unspecified; D72.829 Elevated white blood cell count, unspecified; R91.8 Other nonspecific abnormal finding of lung field; J90 Pleural effusion, not elsewhere classified; J98.11 Atelectasis; J44.9 Chronic obstructive pulmonary disease, unspecified; F32.9 Major depressive disorder, single episode, unspecified; F41.9 Anxiety disorder, unspecified; F90.9 Attention-deficit hyperactivity disorder, unspecified type; F17.200 Nicotine dependence, unspecified, uncomplicated; Z79.899 Other long term (current) drug therapy; Z82.49 Family history of ischemic heart disease and other diseases of the circulatory system
CPT/HCPCS: 36415; 80048; 85025; 71046; 71260; 99285; 96374; 96376; 96361; J1170 ×2; Q9967

== ENCOUNTER 2018-03-10 07:34 | Emergency (ER) | payer OTHER ==
[2018-03-10 07:39] VITALS: TEMP 98
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
--- NOTE | 2018-03-10 08:55 | XR ---
EXAMINATION TYPE: XR ribs RT w pa chest x-ray , 5 VIEWS DATE OF EXAM ORDERED: 03/10/2018 HISTORY: Pain. COMPARISON: Previous chest x-ray dated 03/05/2018. FINDINGS: There is atelectatic change at both lung bases. There is a small right-sided pleural effus ion. No displaced rib fracture is identified. IMPRESSION: RIGHT-SIDED PLEURAL EFFUSION AND ATELECTASIS SUGGEST SPLINTING. A DEFINITE DISPLACED RIB FRACTURE IS NOT IDENTIFIED.
[2018-03-10] MEDS ORDERED: HYDROmorphone 1 MG/ML 1 ML SYRINGE IM STA (09:04)
[2018-03-10 09:19] VITALS: BP 139/74; PULSE 92; RESP 14
== END 2018-03-10 09:18 | disposition home or self-care (01) ==
LOC: EC 07:34
DX: S20.211A Contusion of right front wall of thorax, initial encounter (principal); J90 Pleural effusion, not elsewhere classified; J98.11 Atelectasis; J44.9 Chronic obstructive pulmonary disease, unspecified; F90.9 Attention-deficit hyperactivity disorder, unspecified type; F32.9 Major depressive disorder, single episode, unspecified; F41.9 Anxiety disorder, unspecified; F17.200 Nicotine dependence, unspecified, uncomplicated; Z79.899 Other long term (current) drug therapy; Z82.49 Family history of ischemic heart disease and other diseases of the circulatory system; Z98.890 Other specified postprocedural states; W50.0XXA Accidental hit or strike by another person, initial encounter; Y92.009 Unspecified place in unspecified non-institutional (private) residence as the place of occurrence of the external cause
CPT/HCPCS: 71101; 99284; 96372; J1170

== ENCOUNTER 2018-04-06 01:45 | Inpatient (IN) | payer OTHER ==
[2018-04-06 03:45] VITALS: BMI 28.0
[2018-04-06] MEDS ORDERED: SYMBICORT 160-4.5 MCG INHALER INHALATION PRN (04:58)
[2018-04-06] MEDS ORDERED: ALBUTEROL NEBULIZED 2.5 MG/3 ML INHALATION PRN (04:58)
[2018-04-06 05:07] LABS: Basophils % (A) 1 %; Eosinophils # (A) 0.2 k/uL (0-0.7); Eosinophils % (A) 2 %; HCT 41.7 % (39.0-53.0); HGB 13.2 gm/dL (13.0-17.5); Lymphocytes # (A) 2.1 k/uL (1.0-4.8); Lymphocytes % (A) 31 %; MCH 30.1 pg (25.0-35.0); MCHC 31.8 g/dL (31.0-37.0); MCV 94.8 fL (80.0-100.0); Mean Platelet Volume 6.9; Monocytes # (A) 0.5 k/uL (0-1.0); Monocytes % (A) 8 %; Neutrophils # (A) 3.7 k/uL (1.3-7.7); Neutrophils % (A) 54 %; Platelet Count 237 k/uL (150-450); RDW 13.2 % (11.5-15.5); WBC 6.7 k/uL (3.8-10.6)
[2018-04-06 05:16] LABS: Anion Gap 3 mmol/L; Blood Urea Nitrogen 26 mg/dL (9-20); Calcium 8.6 mg/dL (8.4-10.2); Carbon Dioxide 26 mmol/L (22-30); Chloride 109 mmol/L (98-107); Glucose 103 mg/dL (74-99); Potassium 4.4 mmol/L (3.5-5.1); Sodium 138 mmol/L (137-145)
[2018-04-06] MEDS: MORPHINE SULFATE 4 MG/ML SYRINGE IVP PRN ×2 (05:25→09:05)
[2018-04-06] MEDS: PREGABALIN 100 MG CAP PO SCH ×3 (09:05→21:36)
[2018-04-06] MEDS: OXcarbazepine 300 MG TAB PO SCH ×2 (09:05→22:23)
[2018-04-06] MEDS: oxyCODONE-APAP 5-325MG 1 EACH TAB PO PRN ×2 (09:09→22:26)
--- NOTE | 2018-04-06 11:42 | P.GSCN ---
History of Present Illness Consult date: 04/06/18 Reason for Consult: Seroma post thoracotomy, surgical recommendations Requesting physician: Joseph E Sheet History of present illness: This is a 37-year-old male patient who follows with nurse practitioner Maria Victoria Michael on an outpatient basis. He is familiar to our service as Dr. Sotelo performed a right thoracotomy, right diaphragmatic plication, and intercostal nerve blocks at levels 5, 6, 7, 8, and 9 with cryotherapy on 02/22/2018. He also has a previous medical history of COPD, previous tobacco dependence, hypertension, liver disease, chronic low back pain, chronic anxiety/depression, and previous IV drug use. He presented to [facility] yesterday with complaints of progressive shortness of breath and right lateral chest and back pain. A CT of the chest abdomen and pelvis with contrast was completed at that facility demonstrating a small right pleural effusion and a fluid collection, likely seroma, deep to the chest wall musculature posteriorly in the right upper quadrant measuring 4.3 x 1.7 x 6.2 cm. [facility] transferred him to [facility] for surgical evaluation. The patient reports that after surgery he did have quite a bit of right lateral wall pain, although his breathing had gotten better. Over the last week or 2 he states his pain has gotten worse causing him to have difficulty breathing. Of note he did miss his follow-up appointment with Dr. Sotelo on March 22, however his girlfriend has continued to call to get more narcotic pain medication. Dr. Sotelo was consulted regarding our surgical recommendations. Review of Systems Review of systems was completed and was negative except as noted. 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 Right thoracotomy, right diaphragmatic plication on 02/22/2018 Past Anesthesia/Blood Transfusion Reactions: Previous Problems w/ Anesthesia Additional Past Anesthesia/Blood Transfusion Reaction / Comm: "I wake up and start fighting and swinging" Past Psychological History: ADD/ADHD, Anxiety, Depression, PTSD Additional Psychological History / Comment(s): . Smoking Status: Former smoker Past Alcohol Use History: None Reported Additional Past Alcohol Use History / Comment(s): Pt started smoking in 90's and was a 2 ppd smoker. He states he quit smoking 2 months ago. Past Drug Use History: Cocaine, Heroin, IV Drug Use Additional Drug Use History / Comment(s): Pt states he has had alcohol and drug use in the past, used crack and heroin. denies current use. - Past Family History Father Family Medical History: Hypertension Additional Family Medical History / Comment(s): Father was murdered. Mother Family Medical History: Cancer Additional Family Medical History / Comment(s): Mother of lung cancer at the age of 42 yrs. Brother(s) Family Medical History: Deep Vein Thrombosis (DVT) Medications and Allergies Home Medications Medication Instructions Recorded Confirmed Type Albuterol Inhaler [Ventolin Hfa 1 - 2 puff INHALATION RT-Q6H PRN 07/03/17 History Inhaler] Dextroamphetamine/Amphetamine 20 mg PO QAM 10/15/17 04/06/18 History [Adderall Xr] OXcarbazepine [Trileptal] 300 mg PO BID 01/03/18 04/06/18 History QUEtiapine FUMARATE 50 mg PO HS 01/03/18 04/06/18 History Budesonide-Formot 160-4.5 Mcg 2 puff INHALATION RT-BID PRN 02/21/18 04/06/18 History [Symbicort 160-4.5 Mcg Inhaler] Citalopram Hydrobromide [CeleXA] 40 mg PO HS 02/21/18 04/06/18 History Albuterol Nebulized [Ventolin 2.5 mg INHALATION RT-QID PRN 03/05/18 04/06/18 History Nebulized] oxyCODONE-APAP 5-325MG [Percocet 1 tab PO Q4HR PRN 3 Days #18 tab 03/05/1804/06 Rx 5-325 mg] Pregabalin [Lyrica] 100 mg PO TID 04/06/18 04/06/18 History Allergies Allergy/AdvReac Type Severity Reaction Status Date / Time No Known Allergies Allergy Verified 03/10/18 07:39 Surgical - Exam Vital Signs Temp Pulse Resp BP Pulse Ox 97.8 F 74 16 128/91 97 04/06/18 03:22 04/06/18 03:22 04/06/18 03:22 04/06/18 03:22 04/06/18 03:22 - General well developed, well nourished, moderate distress, moderate pain - Eyes PERRL, normal ocular movement - ENT no hearing loss - Neck no masses, no bruits, trachea midline - Respiratory Lungs sounds diminished bilaterally. Respirations even, shallow. Currently on room air with oxygen saturation 96%. - Cardiovascular S1, S2 present. Regular rate and rhythm, sinus rhythm on telemetry. Palpable peripheral pulses bilaterally. No edema present. No calf tenderness noted. - Abdomen Right upper quadrant is tender to palpation. Abdomen: soft, bowel sounds - Genitourinary Deferred - Rectum Deferred - Integumentary Multiple tattoos present. Right lateral chest wall surgical incision well healed. - Neurologic normal coordination, normal sensation - Musculoskeletal normal gait, normal posture - Psychiatric oriented to time, oriented to person, oriented to place, speech is normal, memory intact Results - Labs 04/06/18 04:48 04/06/18 04:48 Abnormal Lab Results - Last 24 Hours (Table) 04/06/18 Range/Units 04:48 Chloride 109 H (98-107) mmol/L BUN 26 H (9-20) mg/dL Glucose 103 H (74-99) mg/dL Diabetes panel 04/06/18 Range/Units 04:48 Sodium 138 (137-145) mmol/L Potassium 4.4 (3.5-5.1) mmol/L Chloride 109 H (98-107) mmol/L Carbon Dioxide 26 (22-30) mmol/L BUN 26 H (9-20) mg/dL Creatinine 0.93 (0.66-1.25) mg/dL Glucose 103 H (74-99) mg/dL Calcium 8.6 (8.4-10.2) mg/dL Calcium panel 04/06/18 Range/Units 04:48 Calcium 8.6 (8.4-10.2) mg/dL Pituitary panel 04/06/18 Range/Units 04:48 Sodium 138 (137-145) mmol/L Potassium 4.4 (3.5-5.1) mmol/L Chloride 109 H (98-107) mmol/L Carbon Dioxide 26 (22-30) mmol/L BUN 26 H (9-20) mg/dL Creatinine 0.93 (0.66-1.25) mg/dL Glucose 103 H (74-99) mg/dL Calcium 8.6 (8.4-10.2) mg/dL Adrenal panel 04/06/18 Range/Units 04:48 Sodium 138 (137-145) mmol/L Potassium 4.4 (3.5-5.1) mmol/L Chloride 109 H (98-107) mmol/L Carbon Dioxide 26 (22-30) mmol/L BUN 26 H (9-20) mg/dL Creatinine 0.93 (0.66-1.25) mg/dL Glucose 103 H (74-99) mg/dL Calcium 8.6 (8.4-10.2) mg/dL - Imaging CT scan - abdomen: report reviewed, image reviewed CT scan - chest: report reviewed, image reviewed CT scan - pelvis: report reviewed (CT of the chest, abdomen, and pelvis from [facility] was uploaded into our current system), image reviewed Assessment and Plan (1) Status post plication of diaphragm Current Visit: No Status: Resolved Code(s): Z98.890 - OTHER SPECIFIED POSTPROCEDURAL STATES SNOMED Code(s): 009435306 (2) Anxiety Current Visit: Yes Status: Chronic Code(s): F41.9 - ANXIETY DISORDER, UNSPECIFIED SNOMED Code(s): 25056820 (3) COPD (chronic obstructive pulmonary disease) Current Visit: Yes Status: Chronic Code(s): J44.9 - CHRONIC OBSTRUCTIVE PULMONARY DISEASE, UNSPECIFIED SNOMED Code(s): 22196132 (4) Chronic low back pain Current Visit: Yes Status: Chronic Code(s): M54.5 - LOW BACK PAIN; G89.29 - OTHER CHRONIC PAIN SNOMED Code(s): 997279248 (5) Depression Current Visit: Yes Status: Chronic Code(s): F32.9 - MAJOR DEPRESSIVE DISORDER, SINGLE EPISODE, UNSPECIFIED SNOMED Code(s): 46591912 (6) Diaphragmatic paralysis Current Visit: Yes Status: Chronic Code(s): J98.6 - DISORDERS OF DIAPHRAGM SNOMED Code(s): 26882921 (7) Hypertension Current Visit: Yes Status: Chronic Code(s): I10 - ESSENTIAL (PRIMARY) HYPERTENSION SNOMED Code(s): 31811787 (8) Tobacco dependence in remission Current Visit: No Status: Resolved Code(s): F17.201 - NICOTINE DEPENDENCE, UNSPECIFIED, IN REMISSION SNOMED Code(s): 911686714 (9) Seroma Current Visit: Yes Status: Acute Code(s): QYX0270 - SNOMED Code(s): 474320315 Plan: The patient was seen and examined at the bedside. Chart/diagnostics reviewed. Computed tomography scan from [facility] was uploaded and was reviewed with Dr. Bird. At this time seroma is not large enough to warrant surgical intervention. Would continue to monitor. Pain control per primary care service. Medical management per primary care service. Thank you Dr. Calhoun for this consult. Please call us with any further questions. Time with Patient: Greater than 30
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
[2018-04-06] MEDS: HYDROmorphone 1 MG/ML 1 ML SYRINGE IVP PRN ×3 (12:31→21:36)
--- NOTE | 2018-04-06 12:42 | P.CNPUL ---
History of Present Illness Consult date: 04/06/18 Requesting physician: Joseph E Lj Reason for consult: other Chief complaint: Fall at home, right-sided chest wall seroma, right-sided chest wall pain History of present illness: This is a 37-year-old white male patient of [facility], presented to the emergency department at the [facility] after sustaining a fall at home landing on the right side of his body for evaluation of right- sided chest wall pain. Patient had a recent right thoracotomy, right diaphragmatic plication and intercostal nerve blocks on oral 02/22/[address] Sotelo. He was referred by Dr. Ballesteros after he was seen for shortness of breath and the pulmonary office and was found to have right-sided diaphragmatic paralysis. Patient is experiencing some breath related to right lateral chest and back pain. CT of the chest/abdomen and pelvis with contrast was completed at the [facility] and showed a small right pleural effusion , and right-sided seroma, deep to the chest wall musculature posteriorly. He was seen in consultation by CT surgery, and no surgical intervention was recommended at this time. Patient is experiencing some limitation of breathing related to his pain, but he is in no acute distress, room air pulse ox 96%, vital signs are stable, he is afebrile. Lung sounds are diminished, no rhonchi or wheezes noted. He is awake and alert, oriented 3, his is currently being managed by Percocet, and IV Dilaudid for breakthrough pain. He is on Lyrica. He is on Symbicort, and nebulized bronchodilators on as-needed basis. Past medical history includes COPD, previous tobacco dependence, hypertension, chronic low back pain, chronic anxiety and depression, previous IV drug use, chronic hepatitis C, ADD/ADHD. Review of Systems All systems: negative Constitutional: Denies chills, Denies fever Eyes: denies blurred vision, denies pain Ears, nose, mouth and throat: Denies headache, Denies sore throat Cardiovascular: Denies chest pain, Denies shortness of breath Respiratory: Reports dyspnea, Reports pain on inspiration, Denies cough Gastrointestinal: Denies abdominal pain, Denies diarrhea, Denies nausea, Denies vomiting Musculoskeletal: Reports limitation of motion, Denies myalgias Integumentary: Denies pruritus, Denies rash Neurological: Denies numbness, Denies weakness Psychiatric: Denies anxiety, Denies depression Endocrine: Denies fatigue, Denies weight change 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, low back pain/DDD History of Any Multi-Drug Resistant Organisms: None Reported Past Surgical History: Appendectomy, Hernia Repair, Orthopedic Surgery, Tonsillectomy Additional Past Surgical History / Comment(s): rt forearm injury with surgery, R inguinal hernia surgeries x 3, oral surgery.rt Thoracotomy Past Anesthesia/Blood Transfusion Reactions: Previous Problems w/ Anesthesia Additional Past Anesthesia/Blood Transfusion Reaction / Comment(s): "I wake up and start fighting and swinging" Past Psychological History: ADD/ADHD, Anxiety, Depression, PTSD Additional Psychological History / Comment(s): . Smoking Status: Never smoker Past Alcohol Use History: None Reported Additional Past Alcohol Use History / Comment(s): Pt started smoking in 's and was a 2 ppd smoker. He states he quit smoking 2 months ago. Past Drug Use History: Cocaine, Heroin, IV Drug Use Additional Drug Use History / Comment(s): Pt states he has had alcohol and drug use in the past, used crack and heroin. denies current use. - Past Family History Father Family Medical History: Hypertension Additional Family Medical History / Comment(s): Father was murdered. Mother Family Medical History: Cancer Additional Family Medical History / Comment(s): Mother of lung cancer at the age of 42 yrs. Brother(s) Family Medical History: Deep Vein Thrombosis (DVT) Medications and Allergies Home Medications Medication Instructions Recorded Confirmed Type Albuterol Inhaler [Ventolin Hfa 1 - 2 puff INHALATION RT-Q6H PRN 07/03/17 History Inhaler] Dextroamphetamine/Amphetamine 20 mg PO QAM 10/15/17 04/06/18 History [Adderall Xr] OXcarbazepine [Trileptal] 300 mg PO BID 01/03/18 04/06/18 History QUEtiapine FUMARATE 50 mg PO HS 01/03/18 04/06/18 History Budesonide-Formot 160-4.5 Mcg 2 puff INHALATION RT-BID PRN 02/21/18 04/06/18 History [Symbicort 160-4.5 Mcg Inhaler] Citalopram Hydrobromide [CeleXA] 40 mg PO HS 02/21/18 04/06/18 History Albuterol Nebulized [Ventolin 2.5 mg INHALATION RT-QID PRN 03/05/18 04/06/18 History Nebulized] oxyCODONE-APAP 5-325MG [Percocet 1 tab PO Q4HR PRN 3 Days #18 tab 03/05/1804/06 Rx 5-325 mg] Pregabalin [Lyrica] 100 mg PO TID 04/06/18 04/06/18 History Allergies Allergy/AdvReac Type Severity Reaction Status Date / Time No Known Allergies Allergy Verified 03/10/18 07:39 Physical Exam Vitals: Vital Signs Temp Pulse Resp BP Pulse Ox 04/06/18 11:44 73 16 04/06/18 11:40 97.7 F 73 16 121/73 96 04/06/18 08:00 97.7 F 73 16 118/70 04/06/18 04:00 16 04/06/18 03:22 97.8 F 74 16 128/91 97 Intake and Output 04/05/18 04/06/18 04/06/18 22:59 06:59 14:59 Intake Total 390 Balance 390 Intake: IV 30 Invasive Line 1 30 Oral 360 Other: # Voids 1 600 Weight 104.4 kg GENERAL EXAM: Alert, pleasant, 37-year-old white male, comfortable in no apparent distress. HEAD: Normocephalic/atraumatic. EYES: Normal reaction of pupils, equal size. Conjunctiva pink, sclera white. NOSE: Clear with pink turbinates. THROAT: No erythema or exudates. NECK: No masses, no JVD, no thyroid enlargement, no adenopathy. CHEST: Symmetrical expansion. Healed surgical scar on the right side of her lower chest, below the costal margin, with mild swelling along the scar, no redness, no bruising, no open wounds LUNGS: Equal air entry with no crackles, wheeze, rhonchi or dullness. CVS: Regular rate and rhythm, normal S1 and S2, no gallops, no murmurs, no rubs ABDOMEN: Soft, nontender. No hepatosplenomegaly, normal bowel sounds, no guarding or rigidity. EXTREMITIES: No clubbing, no edema, no cyanosis, 2+ pulses and upper and lower extremities. MUSCULOSKELETAL: Muscle strength and tone normal. SPINE: No scoliosis or deformity SKIN: No rashes CENTRAL NERVOUS SYSTEM: Alert and oriented -3. No focal deficits, tone is normal in all 4 extremities. PSYCHIATRIC: Alert and oriented -3. Appropriate affect. Intact judgment and insight. Results - Laboratory Findings CBC and BMP: 04/06/18 04:48 04/06/18 04:48 Abnormal lab findings: Abnormal Labs 04/06/18 04:48 Chloride 109 H BUN 26 H Glucose 103 H - Diagnostic Findings CT scan - chest: report reviewed Assessment and Plan Plan: Assessment: #1. Right sided chest wall pain secondary to a fall and sustaining a seroma along the chest wall #2. Shortness of breath related to the above #3. History of right diaphragmatic paralysis, status post plication of the right diaphragm on 02/22/2018 #4. History of COPD, stable #5. Former nicotine dependence #6. Hypertension #7. Chronic back pain, chronic anxiety and depression, ADD/ADHD, PTSD #8. Chronic hepatitis C secondary to history of IV drug use Plan: Recommend consulting anesthesia services for pain management and possibly epidural catheter insertion. Incentive spirometry every hour, deep breathing and coughing. Ambulation. Continue with maintenance inhalers and nebulized treatments. His COPD stable. CT surgery consultation note was noted. I performed a history & physical examination of the patient and discussed their management with my nurse practitioner, Samantha Farley. I reviewed the nurse practitioner's note and agree with the documented findings and plan of care. Lung sounds are diminished. The findings and the impression was discussed with the patient. I attest to the documentation by the nurse practitioner. Time with Patient: Greater than 30
[2018-04-06] MEDS ORDERED: HYDROmorphone 1 MG/ML 1 ML SYRINGE IVP STA (15:12)
--- NOTE | 2018-04-06 16:06 | P.GSCN ---
History of Present Illness Consult date: 04/06/18 Reason for Consult: Recurrent right internal hernia History of present illness: Patient hospitalized with right-sided chest discomfort and seroma. While here the patient was describing a recurrent hernia in the right groin. He states he has had that repaired 3 separate times using an open approach. These surgeries were apparently performed at [facility]. Having issues with chronic pain at that site. He states he feels a bulge there frequently. Denies nausea or vomiting. Review of Systems The patient denies any acute changes in vision or hearing, no dysphagia or odynophagia, no chest pain or shortness of breath, no dysuria or hematuria, no headache, no runny nose, no rectal bleeding or melena, no unexplained weight loss 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, low back pain/DDD History of Any Multi-Drug Resistant Organisms: None Reported Past Surgical History: Appendectomy, Hernia Repair, Orthopedic Surgery, Tonsillectomy Additional Past Surgical History / Comment(s): rt forearm injury with surgery, R inguinal hernia surgeries x 3, oral surgery.rt Thoracotomy Past Anesthesia/Blood Transfusion Reactions: Previous Problems w/ Anesthesia Additional Past Anesthesia/Blood Transfusion Reaction / Comm: "I wake up and start fighting and swinging" Past Psychological History: ADD/ADHD, Anxiety, Depression, PTSD Additional Psychological History / Comment(s): . Smoking Status: Never smoker Past Alcohol Use History: None Reported Additional Past Alcohol Use History / Comment(s): Pt started smoking in 's and was a 2 ppd smoker. He states he quit smoking 2 months ago. Past Drug Use History: Cocaine, Heroin, IV Drug Use Additional Drug Use History / Comment(s): Pt states he has had alcohol and drug use in the past, used crack and heroin. denies current use. - Past Family History Father Family Medical History: Hypertension Additional Family Medical History / Comment(s): Father was murdered. Mother Family Medical History: Cancer Additional Family Medical History / Comment(s): Mother of lung cancer at the age of 42 yrs. Brother(s) Family Medical History: Deep Vein Thrombosis (DVT) Medications and Allergies Home Medications Medication Instructions Recorded Confirmed Type Albuterol Inhaler [Ventolin Hfa 1 - 2 puff INHALATION RT-Q6H PRN 07/03/17 History Inhaler] Dextroamphetamine/Amphetamine 20 mg PO QAM 10/15/17 04/06/18 History [Adderall Xr] OXcarbazepine [Trileptal] 300 mg PO BID 01/03/18 04/06/18 History QUEtiapine FUMARATE 50 mg PO HS 01/03/18 04/06/18 History Budesonide-Formot 160-4.5 Mcg 2 puff INHALATION RT-BID PRN 02/21/18 04/06/18 History [Symbicort 160-4.5 Mcg Inhaler] Citalopram Hydrobromide [CeleXA] 40 mg PO HS 02/21/18 04/06/18 History Albuterol Nebulized [Ventolin 2.5 mg INHALATION RT-QID PRN 03/05/18 04/06/18 History Nebulized] oxyCODONE-APAP 5-325MG [Percocet 1 tab PO Q4HR PRN 3 Days #18 tab 03/05/1804/06 Rx 5-325 mg] Pregabalin [Lyrica] 100 mg PO TID 04/06/18 04/06/18 History Allergies Allergy/AdvReac Type Severity Reaction Status Date / Time No Known Allergies Allergy Verified 03/10/18 07:39 Surgical - Exam Vital Signs Temp Pulse Resp BP Pulse Ox 97.8 F 74 16 128/91 97 04/06/18 03:22 04/06/18 03:22 04/06/18 03:22 04/06/18 03:22 04/06/18 03:22 Physical exam: General: Well-developed, well-nourished HEENT: Normocephalic, sclerae nonicteric Abdomen: nondistended, right groin incision without obvious hernia, tenderness noted Extremities: No edema Neuro: Alert and oriented Results - Labs 04/06/18 04:48 04/06/18 04:48 Abnormal Lab Results - Last 24 Hours (Table) 04/06/18 Range/Units 04:48 Chloride 109 H (98-107) mmol/L BUN 26 H (9-20) mg/dL Glucose 103 H (74-99) mg/dL Diabetes panel 04/06/18 Range/Units 04:48 Sodium 138 (137-145) mmol/L Potassium 4.4 (3.5-5.1) mmol/L Chloride 109 H (98-107) mmol/L Carbon Dioxide 26 (22-30) mmol/L BUN 26 H (9-20) mg/dL Creatinine 0.93 (0.66-1.25) mg/dL Glucose 103 H (74-99) mg/dL Calcium 8.6 (8.4-10.2) mg/dL Calcium panel 04/06/18 Range/Units 04:48 Calcium 8.6 (8.4-10.2) mg/dL Pituitary panel 04/06/18 Range/Units 04:48 Sodium 138 (137-145) mmol/L Potassium 4.4 (3.5-5.1) mmol/L Chloride 109 H (98-107) mmol/L Carbon Dioxide 26 (22-30) mmol/L BUN 26 H (9-20) mg/dL Creatinine 0.93 (0.66-1.25) mg/dL Glucose 103 H (74-99) mg/dL Calcium 8.6 (8.4-10.2) mg/dL Adrenal panel 04/06/18 Range/Units 04:48 Sodium 138 (137-145) mmol/L Potassium 4.4 (3.5-5.1) mmol/L Chloride 109 H (98-107) mmol/L Carbon Dioxide 26 (22-30) mmol/L BUN 26 H (9-20) mg/dL Creatinine 0.93 (0.66-1.25) mg/dL Glucose 103 H (74-99) mg/dL Calcium 8.6 (8.4-10.2) mg/dL Assessment and Plan (1) Right groin pain Narrative/Plan: Patient with chronic right groin pain. Possible hernia by history. Will have patient follow-up in the office post discharge. We'll sign off at this point. Please contact if needed. Current Visit: Yes Status: Acute Code(s): R10.31 - RIGHT LOWER QUADRANT PAIN SNOMED Code(s): 101799585
[2018-04-06] MEDS: QUEtiapine 50 MG TAB PO SCH (21:34)
[2018-04-06] MEDS: CITALOPRAM HYDROBROMIDE 20 MG TAB PO SCH (21:36)
[2018-04-07] MEDS: HYDROmorphone 1 MG/ML 1 ML SYRINGE IVP PRN ×7 (01:42→23:11)
--- NOTE | 2018-04-07 08:29 | P.PN ---
Subjective Progress Note Date: 04/07/18 Principal diagnosis: Seroma post thoracotomy. Previous medical history of COPD, previous tobacco dependence, hypertension, liver disease, chronic low back pain, chronic anxiety/ depression, and previous IV drug use The patient is currently ambulating in the room in no acute distress. He does state he is still having a lot of pain which is unrelieved with medication. He states IV Dilaudid last about an hour but then the pain is right back. His breathing is nonlabored but shallow. Objective - Vital Signs Vital signs: Vital Signs Temp 97.0 F L 04/07/18 05:32 Pulse 78 04/07/18 05:32 Resp 18 04/07/18 05:32 BP 145/73 04/07/18 05:32 Pulse Ox 94 L 04/07/18 05:32 Intake & Output 04/06/18 04/07/18 04/07/18 18:59 06:59 18:59 Intake Total 760 500 Balance 760 500 Weight 104.4 kg Intake: IV 40 Invasive Line 1 40 Oral 720 500 Other: # Voids 500 2 - Constitutional General appearance: Present: cooperative, no acute distress - Respiratory Details: Lungs sounds diminished bilaterally. Respirations even, nonlabored. Currently on room air with oxygen saturation 94%. - Cardiovascular Details: S1, S2 present. Regular rate and rhythm, sinus rhythm on telemetry. Palpable peripheral pulses bilaterally. No edema present. No calf pain or tenderness noted. - Gastrointestinal Gastrointestinal Comment(s): Abdomen soft, tender to palpation, nondistended. Active bowel sounds present 4 quadrants. Tolerating diet. - Genitourinary Genitourinary Comment(s): Continues to void clear urine. - Integumentary Integumentary Comment(s): Skin is warm and dry with evidence of good perfusion. Right lateral thoracotomy incisions well healed with no drainage. - Neurologic Neurologic: Present: CNII-XII intact - Musculoskeletal Musculoskeletal: Present: gait normal, strength equal bilaterally - Psychiatric Psychiatric: Present: A&O x's 3, appropriate affect, intact judgment & insight - Allied health notes Allied health notes reviewed: nursing - Labs CBC & Chem 7: 04/06/18 04:48 04/06/18 04:48 Assessment and Plan (1) Status post plication of diaphragm Current Visit: No Status: Resolved Code(s): Z98.890 - OTHER SPECIFIED POSTPROCEDURAL STATES SNOMED Code(s): 380892674 (2) Anxiety Current Visit: Yes Status: Chronic Code(s): F41.9 - ANXIETY DISORDER, UNSPECIFIED SNOMED Code(s): 82216291 (3) COPD (chronic obstructive pulmonary disease) Current Visit: Yes Status: Chronic Code(s): J44.9 - CHRONIC OBSTRUCTIVE PULMONARY DISEASE, UNSPECIFIED SNOMED Code(s): 95570183 (4) Chronic low back pain Current Visit: Yes Status: Chronic Code(s): M54.5 - LOW BACK PAIN; G89.29 - OTHER CHRONIC PAIN SNOMED Code(s): 396748901 (5) Depression Current Visit: Yes Status: Chronic Code(s): F32.9 - MAJOR DEPRESSIVE DISORDER, SINGLE EPISODE, UNSPECIFIED SNOMED Code(s): 89411772 (6) Diaphragmatic paralysis Current Visit: Yes Status: Chronic Code(s): J98.6 - DISORDERS OF DIAPHRAGM SNOMED Code(s): 93106628 (7) Hypertension Current Visit: Yes Status: Chronic Code(s): I10 - ESSENTIAL (PRIMARY) HYPERTENSION SNOMED Code(s): 74571851 (8) Tobacco dependence in remission Current Visit: No Status: Resolved Code(s): F17.201 - NICOTINE DEPENDENCE, UNSPECIFIED, IN REMISSION SNOMED Code(s): 979596233 (9) Seroma Current Visit: Yes Status: Acute Code(s): AUR1576 - SNOMED Code(s): 870028064 Plan: 1. No surgical intervention necessary. Would continue to monitor the size of a seroma. 2. Pain control per primary care service. Consult placed for anesthesia for possible epidural. 3. Continue incentive spirometry is 10 times every hour while awake. 4. Continue bronchodilators per pulmonology. 5. Increase activity, ambulate in the hallway. PT/OT ordered. 6. Encourage continued smoking cessation. 7. Will sign off of case. Please call us with any further questions. Time with Patient: Greater than 30
[2018-04-07] MEDS: PREGABALIN 100 MG CAP PO SCH ×3 (09:14→23:11)
[2018-04-07 09:22] LABS: Basophils % (A) 1 %; Eosinophils # (A) 0.2 k/uL (0-0.7); Eosinophils % (A) 2 %; HCT 41.3 % (39.0-53.0); HGB 13.3 gm/dL (13.0-17.5); Lymphocytes # (A) 1.6 k/uL (1.0-4.8); Lymphocytes % (A) 22 %; MCHC 32.1 g/dL (31.0-37.0); MCV 96.5 fL (80.0-100.0); Mean Platelet Volume 6.8; Monocytes # (A) 0.5 k/uL (0-1.0); Monocytes % (A) 6 %; Neutrophils # (A) 4.8 k/uL (1.3-7.7); Neutrophils % (A) 67 %; Platelet Count 226 k/uL (150-450); RBC 4.28 m/uL (4.30-5.90); RDW 13.4 % (11.5-15.5); WBC 7.2 k/uL (3.8-10.6)
[2018-04-07 09:27] LABS: Anion Gap 7 mmol/L; Blood Urea Nitrogen 21 mg/dL (9-20); Calcium 8.8 mg/dL (8.4-10.2); Carbon Dioxide 27 mmol/L (22-30); Chloride 107 mmol/L (98-107); Glucose 158 mg/dL (74-99); Potassium 4.6 mmol/L (3.5-5.1); Sodium 141 mmol/L (137-145)
[2018-04-07] MEDS: OXcarbazepine 300 MG TAB PO SCH ×2 (10:56→20:07)
--- NOTE | 2018-04-07 11:34 | P.PAINCN ---
History of Present Illness - Reason for Consult Consult date: 04/07/18 Right chest pain Requesting physician: Joseph E Sheet - Chief Complaint Postsurgical pain - History of Present Illness 37-year-old male status post a right thoracotomy within the past 2 months. She and has a chief complaint of right-sided chest pain along the incision line. Intraoperatively cryoablation of the intercostal nerves of 5, 6, 7, and 8 were performed. Patient still has residual pain states is a 10 out of 10 in severity describes it as a throbbing, aching, sharp, shooting, lightening type pain. Patient is currently on Percocet and Lyrica for pain control. He states that the medication is not providing him with any significant relief. Patient denies any fever, chills, night sweats. Patient denies any bowel or bladder incontinence. 14 point review of systems negative except as mentioned per HPI Vital signs reviewed Gen: WDWN, AAOx3, NAD HEENT: NCAT, EOMI, hearing grossly normal Pulm: resp unlabored Abd: soft, NT, ND Neck: supple, trachea midline ROM in flexion cervical spine: Within normal limit ROM in extension cervical spine: Within normal limit Cervical paravertebral tenderness: None Cervical Facet tenderness: None Spurling's: Negative ROM in flexion thoracic spine: Reduced secondary to pain ROM in extension thoracic spine: Reduced secondary to pain Thoracic paravertebral tenderness: Positive bilaterally Neuro: Sensory deficits muscle strength lower extremities PRESERVED Assessment: 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 I discussed with patient being evaluated as an outpatient with regards to his thoracic pain. Discussed intercostal nerve blocks, as well as thoracic epidural steroid injections. Patient was scheduled appointment with in our pain clinic to be assessed. 2. We'll increase his Lyrica from 175 mg daily 250mg. 100 mg in the morning, 75 mg in the afternoon, 75 mg in the evening. 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, low back pain/DDD History of Any Multi-Drug Resistant Organisms: None Reported Past Surgical History: Appendectomy, Hernia Repair, Orthopedic Surgery, Tonsillectomy Additional Past Surgical History / Comment(s): rt forearm injury with surgery, R inguinal hernia surgeries x 3, oral surgery.rt Thoracotomy Past Anesthesia/Blood Transfusion Reactions: Previous Problems w/ Anesthesia Additional Past Anesthesia/Blood Transfusion Reaction / Comm: "I wake up and start fighting and swinging" Past Psychological History: ADD/ADHD, Anxiety, Depression, PTSD Additional Psychological History / Comment(s): . Smoking Status: Never smoker Past Alcohol Use History: None Reported Additional Past Alcohol Use History / Comment(s): Pt started smoking in 's and was a 2 ppd smoker. He states he quit smoking 2 months ago. Past Drug Use History: Cocaine, Heroin, IV Drug Use Additional Drug Use History / Comment(s): Pt states he has had alcohol and drug use in the past, used crack and heroin. denies current use. - Past Family History Father Family Medical History: Hypertension Additional Family Medical History / Comment(s): Father was murdered. Mother Family Medical History: Cancer Additional Family Medical History / Comment(s): Mother of lung cancer at the age of 42 yrs. Brother(s) Family Medical History: Deep Vein Thrombosis (DVT) Medications and Allergies Home Medications Medication Instructions Recorded Confirmed Type Albuterol Inhaler [Ventolin Hfa 1 - 2 puff INHALATION RT-Q6H PRN 07/03/17 History Inhaler] Dextroamphetamine/Amphetamine 20 mg PO QAM 10/15/17 04/06/18 History [Adderall Xr] OXcarbazepine [Trileptal] 300 mg PO BID 01/03/18 04/06/18 History QUEtiapine FUMARATE 50 mg PO HS 01/03/18 04/06/18 History Budesonide-Formot 160-4.5 Mcg 2 puff INHALATION RT-BID PRN 02/21/18 04/06/18 History [Symbicort 160-4.5 Mcg Inhaler] Citalopram Hydrobromide [CeleXA] 40 mg PO HS 02/21/18 04/06/18 History Albuterol Nebulized [Ventolin 2.5 mg INHALATION RT-QID PRN 03/05/18 04/06/18 History Nebulized] oxyCODONE-APAP 5-325MG [Percocet 1 tab PO Q4HR PRN 3 Days #18 tab 03/05/1804/06 Rx 5-325 mg] Pregabalin [Lyrica] 100 mg PO TID 04/06/18 04/06/18 History Allergies Allergy/AdvReac Type Severity Reaction Status Date / Time No Known Allergies Allergy Verified 03/10/18 07:39 Physical Exam Vitals: Vital Signs Temp Pulse Resp BP Pulse Ox 04/07/18 08:00 97.6 F 87 17 121/70 93 L 04/07/18 05:32 97.0 F L 78 18 145/73 94 L 04/07/18 01:38 97.3 F L 74 16 131/72 95 04/06/18 21:37 97.7 F 78 15 126/69 96 04/06/18 15:51 73 18 04/06/18 15:48 97.8 F 73 18 119/69 96 04/06/18 11:44 73 16 04/06/18 11:40 97.7 F 73 16 121/73 96 Intake and Output 04/06/18 04/07/18 04/07/18 22:59 06:59 14:59 Intake Total 870 240 Balance 870 240 Intake: IV 10 Invasive Line 1 10 Oral 860 240 Other: # Voids 2 2 Weight 104.4 kg 106.3 kg Results CBC & Chem 7: 04/07/18 08:57 04/07/18 08:57 Labs: Abnormal Lab Results - Last 24 Hours (Table) 04/07/18 04/07/18 Range/Units 08:57 08:57 RBC 4.28 L (4.30-5.90) m/uL BUN 21 H (9-20) mg/dL Glucose 158 H (74-99) mg/dL PQRS Measure Charge Sheet PQRS Narrative: Smoking Status Never smoker Do You Want the Pneumonia No Vaccine AT THIS TIME? Blood Pressure [Right Arm] 121/70 Pain Intensity [Right 0 Generalized] Pain Intensity 8 Pain Scale Used Numeric (1 - 10) Scale Used Numeric (1 - 10) Home Medications: Ambulatory Orders Albuterol Inhaler [Ventolin Hfa Inhaler] 1 - 2 puff INHALATION RT-Q6H PRN Dextroamphetamine/Amphetamine [Adderall Xr] 20 mg PO QAM 10/15/17 OXcarbazepine [Trileptal] 300 mg PO BID 01/03/18 QUEtiapine FUMARATE 50 mg PO HS 01/03/18 Budesonide-Formot 160-4.5 Mcg [Symbicort 160-4.5 Mcg Inhaler] 2 puff INHALATION RT-BID PRN 02/21/18 Citalopram Hydrobromide [CeleXA] 40 mg PO HS 02/21/18 Albuterol Nebulized [Ventolin Nebulized] 2.5 mg INHALATION RT-QID PRN 03/05/18 oxyCODONE-APAP 5-325MG [Percocet 5-325 mg] 1 tab PO Q4HR PRN 3 Days #18 tab Pregabalin [Lyrica] 100 mg PO TID 04/06/18
--- NOTE | 2018-04-07 13:20 | P.PN ---
Subjective Progress Note Date: 04/07/18 Principal diagnosis: Right-sided chest wall seroma. Right-sided chest pain. This is a 37-year-old white male patient of KINGSLEY Jeffers, presented to the emergency department at the [facility] after sustaining a fall at home landing on the right side of his body for evaluation of right- sided chest wall pain. Patient had a recent right thoracotomy, right diaphragmatic plication and intercostal nerve blocks on oral 02/22/[address] Sotelo. He was referred by Dr. Ballesteros after he was seen for shortness of breath and the pulmonary office and was found to have right-sided diaphragmatic paralysis. Patient is experiencing some breath related to right lateral chest and back pain. CT of the chest/abdomen and pelvis with contrast was completed at the [facility] and showed a small right pleural effusion , and right-sided seroma, deep to the chest wall musculature posteriorly. He was seen in consultation by CT surgery, and no surgical intervention was recommended at this time. Patient is experiencing some limitation of breathing related to his pain, but he is in no acute distress, room air pulse ox 96%, vital signs are stable, he is afebrile. Lung sounds are diminished, no rhonchi or wheezes noted. He is awake and alert, oriented 3, his is currently being managed by Percocet, and IV Dilaudid for breakthrough pain. He is on Lyrica. He is on Symbicort, and nebulized bronchodilators on as-needed basis. Past medical history includes COPD, previous tobacco dependence, hypertension, chronic low back pain, chronic anxiety and depression, previous IV drug use, chronic hepatitis C, ADD/ADHD. The patient is seen again today 04/07/2018 in follow-up on the selective care unit. He is currently awake and alert in no acute distress. He does have ongoing right-sided chest wall discomfort. He is being covered with Dilaudid and Percocet. He is working well with the incentive spirometer up to 3500 ML' s. He is maintaining good O2 saturations in the 90s on room air. He's been afebrile. Hemodynamically stable. White count 7.2. Hemoglobin 13.3. Creatinine 1.01. Objective - Vital Signs Vital signs: Vital Signs Temp 97.2 F L 04/07/18 11:38 Pulse 68 04/07/18 11:39 Resp 15 04/07/18 11:39 BP 132/80 04/07/18 11:38 Pulse Ox 96 04/07/18 11:38 Intake & Output 04/06/18 04/07/18 04/07/18 18:59 06:59 18:59 Intake Total 760 500 260 Balance 760 500 260 Weight 106.3 kg Intake: IV 40 20 Invasive Line 1 40 Invasive Line 2 20 Oral 720 500 240 Other: # Voids 500 2 - Exam GENERAL EXAM: Alert, pleasant, 37-year-old white male, comfortable in no apparent distress. On room air. HEAD: Normocephalic/atraumatic. EYES: Normal reaction of pupils, equal size. Conjunctiva pink, sclera white. NOSE: Clear with pink turbinates. THROAT: No erythema or exudates. NECK: No masses, no JVD, no thyroid enlargement, no adenopathy. CHEST: Symmetrical expansion. Healed surgical scar on the right side of her lower chest, below the costal margin, with mild swelling along the scar, no redness, no bruising, no open wounds LUNGS: Equal air entry with no crackles, wheeze, rhonchi or dullness. CVS: Regular rate and rhythm, normal S1 and S2, no gallops, no murmurs, no rubs ABDOMEN: Soft, nontender. No hepatosplenomegaly, normal bowel sounds, no guarding or rigidity. EXTREMITIES: No clubbing, no edema, no cyanosis, 2+ pulses and upper and lower extremities. MUSCULOSKELETAL: Muscle strength and tone normal. SPINE: No scoliosis or deformity SKIN: No rashes CENTRAL NERVOUS SYSTEM: Alert and oriented -3. No focal deficits, tone is normal in all 4 extremities. PSYCHIATRIC: Alert and oriented -3. Appropriate affect. Intact judgment and insight. - Labs CBC & Chem 7: 04/07/18 08:57 04/07/18 08:57 Labs: Abnormal Lab Results - Last 24 Hours (Table) 04/07/18 04/07/18 Range/Units 08:57 08:57 RBC 4.28 L (4.30-5.90) m/uL BUN 21 H (9-20) mg/dL Glucose 158 H (74-99) mg/dL Assessment and Plan Assessment: Assessment: #1. Right sided chest wall pain secondary to a fall and sustaining a seroma along the chest wall #2. Shortness of breath related to the above #3. History of right diaphragmatic paralysis, status post plication of the right diaphragm on 02/22/2018 #4. History of COPD, stable #5. Former nicotine dependence #6. Hypertension #7. Chronic back pain, chronic anxiety and depression, ADD/ADHD, PTSD #8. Chronic hepatitis C secondary to history of IV drug use Plan: The patient was seen and evaluated by Dr. Mitchell. He is maintaining good O2 saturations in the 90s on room air. No acute respiratory distress. No plans for any surgical intervention at this point. Anesthesia has seen the patient and may plan for epidural catheter for pain management on Monday. In the interim continues with Dilaudid and Percocet. We will increase his activity as tolerated. Continue to encourage increased use the incentive spirometer and cough and deep breathing exercises. We'll continue to follow. I, the cosigning physician, performed a history & physical examination of the patient. Lungs sounds are clear but diminished. Maintaining good O2 saturations in the 90s on room air. I discussed the assessment and plan of care with my nurse practitioner, Rachel Romo. I attest to the above note as dictated by her.
[2018-04-07] MEDS: CITALOPRAM HYDROBROMIDE 20 MG TAB PO SCH (20:06)
[2018-04-07] MEDS: QUEtiapine 50 MG TAB PO SCH (20:07)
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
[2018-04-08] MEDS: HYDROmorphone 1 MG/ML 1 ML SYRINGE IVP PRN ×2 (02:37→07:11)
[2018-04-08 05:00] VITALS: RESP 17
[2018-04-08 07:13] LABS: Basophils % (A) 1 %; Eosinophils # (A) 0.2 k/uL (0-0.7); Eosinophils % (A) 3 %; HCT 41.3 % (39.0-53.0); HGB 13.2 gm/dL (13.0-17.5); Lymphocytes # (A) 1.7 k/uL (1.0-4.8); Lymphocytes % (A) 24 %; MCV 93.6 fL (80.0-100.0); Monocytes # (A) 0.5 k/uL (0-1.0); Monocytes % (A) 7 %; Neutrophils # (A) 4.4 k/uL (1.3-7.7); Neutrophils % (A) 63 %; Platelet Count 210 k/uL (150-450); RBC 4.42 m/uL (4.30-5.90); RDW 13.2 % (11.5-15.5)
[2018-04-08 07:22] LABS: Anion Gap 5 mmol/L; Blood Urea Nitrogen 18 mg/dL (9-20); Calcium 9.1 mg/dL (8.4-10.2); Carbon Dioxide 26 mmol/L (22-30); Chloride 106 mmol/L (98-107); Glucose 97 mg/dL (74-99); Potassium 4.4 mmol/L (3.5-5.1); Sodium 137 mmol/L (137-145)
[2018-04-08] MEDS: PREGABALIN 100 MG CAP PO SCH (08:45)
[2018-04-08] MEDS: OXcarbazepine 300 MG TAB PO SCH (08:45)
[2018-04-08 09:14] VITALS: BP 125/74; PULSE 84; TEMP 97.5
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
[2018-04-08] MEDS: oxyCODONE-APAP 5-325MG 1 EACH TAB PO PRN (11:03)
--- NOTE | 2018-04-08 12:16 | P.PN ---
Subjective Progress Note Date: 04/08/18 Principal diagnosis: Right-sided chest wall pain secondary to a fall, sustaining a seroma along the chest wall This is a 37-year-old white male patient of KINGSLEY Jeffers, presented to the emergency department at the [facility] after sustaining a fall at home landing on the right side of his body for evaluation of right- sided chest wall pain. Patient had a recent right thoracotomy, right diaphragmatic plication and intercostal nerve blocks on oral 02/22/[address] Sotelo. He was referred by Dr. Ballesteros after he was seen for shortness of breath and the pulmonary office and was found to have right-sided diaphragmatic paralysis. Patient is experiencing some breath related to right lateral chest and back pain. CT of the chest/abdomen and pelvis with contrast was completed at the [facility] and showed a small right pleural effusion , and right-sided seroma, deep to the chest wall musculature posteriorly. He was seen in consultation by CT surgery, and no surgical intervention was recommended at this time. Patient is experiencing some limitation of breathing related to his pain, but he is in no acute distress, room air pulse ox 96%, vital signs are stable, he is afebrile. Lung sounds are diminished, no rhonchi or wheezes noted. He is awake and alert, oriented 3, his is currently being managed by Percocet, and IV Dilaudid for breakthrough pain. He is on Lyrica. He is on Symbicort, and nebulized bronchodilators on as-needed basis. Past medical history includes COPD, previous tobacco dependence, hypertension, chronic low back pain, chronic anxiety and depression, previous IV drug use, chronic hepatitis C, ADD/ADHD. The patient is seen again today 04/07/2018 in follow-up on the selective care unit. He is currently awake and alert in no acute distress. He does have ongoing right-sided chest wall discomfort. He is being covered with Dilaudid and Percocet. He is working well with the incentive spirometer up to 3500 ML' s. He is maintaining good O2 saturations in the 90s on room air. He's been afebrile. Hemodynamically stable. White count 7.2. Hemoglobin 13.3. Creatinine 1.01. On 04/08/2018 patient seen in follow-up on selective care unit. We'll address, sitting up on the edge of the bed, is been discharged by the primary care physician, room air pulse ox is 95%, patient is afebrile, hemodynamically stable , still complaining of some discomfort along the right chest wall. Lung sounds are diminished, no wheezes or crackles noted on today's exam. Today's labs have been noted, CBC and BMP are all within normal limits. No fever, no chills. Patient is maintained on oral Percocet, and Lyrica, he has been seen by pain services. Was recommended to continue on Lyrica, and has a follow-up appointment with pain services as an outpatient. Patient states his pain control is inadequate. We recommended to add Toradol to his current medication regime, however the patient refused stating that he had experienced acute kidney injury related to Toradol in the past. Objective - Vital Signs Vital signs: Vital Signs Temp 97.5 F L 04/08/18 08:00 Pulse 84 04/08/18 08:00 Resp 17 04/08/18 08:00 BP 125/74 04/08/18 08:00 Pulse Ox 95 04/08/18 08:00 Intake & Output 04/07/18 04/08/18 04/08/18 18:59 06:59 18:59 Intake Total 770 20 180 Balance 770 20 180 Weight 107.3 kg Intake: IV 30 20 Invasive Line 2 30 20 Oral 740 180 Other: # Voids 2 1 - Exam GENERAL EXAM: Alert, pleasant, 37-year-old white male, comfortable in no apparent distress. On room air. HEAD: Normocephalic/atraumatic. EYES: Normal reaction of pupils, equal size. Conjunctiva pink, sclera white. NOSE: Clear with pink turbinates. THROAT: No erythema or exudates. NECK: No masses, no JVD, no thyroid enlargement, no adenopathy. CHEST: Symmetrical expansion. Healed surgical scar on the right side of her lower chest, below the costal margin, with mild swelling along the scar, no redness, no bruising, no open wounds LUNGS: Equal air entry with no crackles, wheeze, rhonchi or dullness. CVS: Regular rate and rhythm, normal S1 and S2, no gallops, no murmurs, no rubs ABDOMEN: Soft, nontender. No hepatosplenomegaly, normal bowel sounds, no guarding or rigidity. EXTREMITIES: No clubbing, no edema, no cyanosis, 2+ pulses and upper and lower extremities. MUSCULOSKELETAL: Muscle strength and tone normal. SPINE: No scoliosis or deformity SKIN: No rashes CENTRAL NERVOUS SYSTEM: Alert and oriented -3. No focal deficits, tone is normal in all 4 extremities. PSYCHIATRIC: Alert and oriented -3. Appropriate affect. Intact judgment and insight. - Labs CBC & Chem 7: 04/08/18 06:55 04/08/18 06:55 Assessment and Plan Plan: Assessment: #1. Right sided chest wall pain secondary to a fall and sustaining a seroma along the chest wall #2. Shortness of breath related to the above #3. History of right diaphragmatic paralysis, status post plication of the right diaphragm on 02/22/2018 #4. History of COPD, stable #5. Former nicotine dependence #6. Hypertension #7. Chronic back pain, chronic anxiety and depression, ADD/ADHD, PTSD #8. Chronic hepatitis C secondary to history of IV drug use Plan: Patient is stable for discharge from pulmonary standpoint, pain management per attending physician, and recommendations of pain services. Patient has a follow -up appointment tomorrow in the outpatient pain clinic. Patient refused Toradol stating that he had acute kidney injury in the past related to Toradol. He is going home on Percocet and Lyrica. Recommend deep breathing and coughing , and continue using incentive spirometry. I performed a history & physical examination of the patient and discussed their management with my nurse practitioner, Samantha Farley. I reviewed the nurse practitioner's note and agree with the documented findings and plan of care. Lung sounds are diminished. The findings and the impression was discussed with the patient. I attest to the documentation by the nurse practitioner. Time with Patient: Less than 30
== END 2018-04-08 11:13 | disposition home or self-care (01) | DRG 920 ==
LOC: 3SCARD 03:16
PROVIDERS: ADMIT Internal Medicine; ATTEND Internal Medicine
DX: M96.842 Postprocedural seroma of a musculoskeletal structure following a musculoskeletal system procedure (principal); J90 Pleural effusion, not elsewhere classified; J98.11 Atelectasis; Y83.8 Other surgical procedures as the cause of abnormal reaction of the patient, or of later complication, without mention of misadventure at the time of the procedure; B18.2 Chronic viral hepatitis C; F11.11 Opioid abuse, in remission; F14.11 Cocaine abuse, in remission; F17.201 Nicotine dependence, unspecified, in remission; F32.9 Major depressive disorder, single episode, unspecified; F41.9 Anxiety disorder, unspecified; F43.10 Post-traumatic stress disorder, unspecified; F90.9 Attention-deficit hyperactivity disorder, unspecified type; G89.29 Other chronic pain; I10 Essential (primary) hypertension; J44.9 Chronic obstructive pulmonary disease, unspecified; J98.6 Disorders of diaphragm; W18.30XA Fall on same level, unspecified, initial encounter; Y93.E1 Activity, personal bathing and showering; Y92.002 Bathroom of unspecified non-institutional (private) residence as the place of occurrence of the external cause; K40.90 Unilateral inguinal hernia, without obstruction or gangrene, not specified as recurrent; Z79.51 Long term (current) use of inhaled steroids; Z79.899 Other long term (current) drug therapy; Z80.1 Family history of malignant neoplasm of trachea, bronchus and lung; Z82.49 Family history of ischemic heart disease and other diseases of the circulatory system; M54.9 Dorsalgia, unspecified; Z87.01 Personal history of pneumonia (recurrent); Z83.2 Family history of diseases of the blood and blood-forming organs and certain disorders involving the immune mechanism
CPT/HCPCS: 80048; 85025

== ENCOUNTER 2018-04-08 21:16 | Emergency (ER) | payer OTHER ==
--- NOTE | 2018-04-08 22:07 | ED ---
General Adult HPI - General Chief complaint: Shortness of Breath Stated complaint: fluid retention Time Seen by Provider: 04/08/18 21:40 Source: patient Mode of arrival: ambulatory Limitations: no limitations - History of Present Illness Initial comments: 's patient is a 37-year-old man who complains of pain along the right chest where he has had a previous surgery. The patient had been admitted for this pain last week and then was just discharged yesterday. The patient states that the pain recurred today. He describes as aching. Pain is worse with palpation or with movement or with breathing. She states that he was prescribed Percocet but this is not helping. Denies fever or chills. No productive cough. -: days(s) Location: chest Quality: aching Consistency: constant Improves with: none Worsens with: other (Palpation) - Related Data Home Medications Medication Instructions Recorded Confirmed Albuterol Inhaler [Ventolin Hfa 1 - 2 puff INHALATION RT-Q6H PRN 07/03/17 Inhaler] Dextroamphetamine/Amphetamine 20 mg PO QAM 10/15/17 04/06/18 [Adderall Xr] OXcarbazepine [Trileptal] 300 mg PO BID 01/03/18 04/06/18 QUEtiapine FUMARATE 50 mg PO HS 01/03/18 04/06/18 Budesonide-Formot 160-4.5 Mcg 2 puff INHALATION RT-BID PRN 02/21/18 04/06/18 [Symbicort 160-4.5 Mcg Inhaler] Citalopram Hydrobromide [CeleXA] 40 mg PO HS 02/21/18 04/06/18 Albuterol Nebulized [Ventolin 2.5 mg INHALATION RT-QID PRN 03/05/18 04/06/18 Nebulized] Pregabalin [Lyrica] 100 mg PO TID 04/06/18 04/06/18 Previous Rx's Medication Instructions Recorded oxyCODONE-APAP 5-325MG [Percocet 1 tab PO Q4HR PRN 3 Days #18 tab 04/08/18 5-325 mg] Allergies Allergy/AdvReac Type Severity Reaction Status Date / Time No Known Allergies Allergy Verified 04/08/18 21:25 Review of Systems ROS Statement: Those systems with pertinent positive or pertinent negative responses have been documented in the HPI. ROS Other: All systems not noted in ROS Statement are negative. Constitutional: Denies: fever, chills Respiratory: Reports: dyspnea. Denies: cough, wheezes, hemoptysis Cardiovascular: Reports: chest pain. 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, low back pain/DDD History of Any Multi-Drug Resistant Organisms: None Reported Past Surgical History: Appendectomy, Hernia Repair, Orthopedic Surgery, Tonsillectomy Additional Past Surgical History / Comment(s): rt forearm injury with surgery, R inguinal hernia surgeries x 3, oral surgery.rt Thoracotomy , diaphragm surgery Past Anesthesia/Blood Transfusion Reactions: Previous Problems w/ Anesthesia Additional Past Anesthesia/Blood Transfusion Reaction / Comment(s): "I wake up and start fighting and swinging" Past Psychological History: ADD/ADHD, Anxiety, Depression, PTSD Smoking Status: Current every day smoker Past Alcohol Use History: None Reported Past Drug Use History: Cocaine, Heroin, IV Drug Use - Past Family History Father Family Medical History: Hypertension Additional Family Medical History / Comment(s): Father was murdered. Mother Family Medical History: Cancer Additional Family Medical History / Comment(s): Mother of lung cancer at the age of 42 yrs. Brother(s) Family Medical History: Deep Vein Thrombosis (DVT) General Exam Limitations: no limitations General appearance: alert, in no apparent distress Head exam: Present: atraumatic, normocephalic Eye exam: Present: normal appearance. Absent: scleral icterus, conjunctival injection ENT exam: Present: normal oropharynx Neck exam: Present: normal inspection Respiratory exam: Present: normal lung sounds bilaterally, chest wall tenderness (Right chest wall tenderness reproduces the patient's pain). Absent : respiratory distress, wheezes, rales, rhonchi, stridor, accessory muscle use, decreased breath sounds, prolonged expiratory Cardiovascular Exam: Present: regular rate, normal rhythm, normal heart sounds. Absent: systolic murmur, diastolic murmur, rubs, gallop GI/Abdominal exam: Present: soft. Absent: distended, tenderness, guarding, rebound, mass Extremities exam: Present: normal inspection, normal capillary refill. Absent: pedal edema, calf tenderness Back exam: Present: normal inspection. Absent: CVA tenderness (R), CVA tenderness (L) Neurological exam: Present: alert Skin exam: Present: warm, dry, intact, normal color. Absent: rash Course Vital Signs 04/08/18 04/09/18 21:22 00:43 Temperature 97.4 F L Pulse Rate 86 72 Respiratory 20 16 Rate Blood Pressure 145/88 144/86 O2 Sat by Pulse 98 97 Oximetry EKG Findings - EKG Results: EKG: interpreted by REDDD, sinus rhythm (Rate 77 bpm), normal axis, normal QRS - Blocks, [place], Hypertrophy, ST Abn: Chamber hypertrophy or enlargement: only voltage criteria for left ventricular hypertrophy Repolarization changes or abnormalities: nonspecific abnormality, ST segment, and/or T wave Medical Decision Making - Lab Data Result diagrams: 04/08/18 22:00 04/08/18 22:00 Lab Results 04/08/18 04/08/18 04/08/18 Range/Units 22:00 22:00 22:00 WBC 8.4 (3.8-10.6) k/uL RBC 4.56 (4.30-5.90) m/uL Hgb 13.7 (13.0-17.5) gm/dL Hct 42.9 (39.0-53.0) % MCV 94.1 (80.0-100.0) fL MCH 30.0 (25.0-35.0) pg MCHC 31.9 (31.0-37.0) g/dL RDW 13.2 (11.5-15.5) % Plt Count 242 (150-450) k/uL Neutrophils % 64 % Lymphocytes % 22 % Monocytes % 8 % Eosinophils % 2 % Basophils % 0 % Neutrophils # 5.4 (1.3-7.7) k/uL Lymphocytes # 1.9 (1.0-4.8) k/uL Monocytes # 0.7 (0-1.0) k/uL Eosinophils # 0.2 (0-0.7) k/uL Basophils # 0.0 (0-0.2) k/uL D-Dimer 0.68 H (<0.60) mg/L FEU Sodium 140 (137-145) mmol/L Potassium 4.5 (3.5-5.1) mmol/L Chloride 106 (98-107) mmol/L Carbon Dioxide 29 (22-30) mmol/L Anion Gap 5 mmol/L BUN 18 (9-20) mg/dL Creatinine 0.90 (0.66-1.25) mg/dL Est GFR (CKD-EPI)AfAm >90 (>60 ml/min/1.73 sqM) Est GFR (CKD-EPI)NonAf >90 (>60 ml/min/1.73 sqM) Glucose 115 H (74-99) mg/dL Calcium 9.3 (8.4-10.2) mg/dL Total Bilirubin 0.5 (0.2-1.3) mg/dL AST 104 H (17-59) U/L ALT 214 H (21-72) U/L Alkaline Phosphatase 78 (38-126) U/L C-Reactive Protein 10.0 H (<10.0) mg/L Total Protein 7.1 (6.3-8.2) g/dL Albumin 3.7 (3.5-5.0) g/dL Disposition Clinical Impression: Chest pain Disposition: HOME SELF-CARE Condition: Good Instructions: Chest Pain (ED) Is patient prescribed a controlled substance at d/c from ED?: No Referrals: Eliseo Segovia MD [Primary Care Provider] - 1-2 days
[2018-04-08 22:24] LABS: Basophils % (A) 0 %; Eosinophils # (A) 0.2 k/uL (0-0.7); Eosinophils % (A) 2 %; HCT 42.9 % (39.0-53.0); HGB 13.7 gm/dL (13.0-17.5); Lymphocytes # (A) 1.9 k/uL (1.0-4.8); Lymphocytes % (A) 22 %; MCHC 31.9 g/dL (31.0-37.0); MCV 94.1 fL (80.0-100.0); Mean Platelet Volume 6.7; Monocytes # (A) 0.7 k/uL (0-1.0); Monocytes % (A) 8 %; Neutrophils # (A) 5.4 k/uL (1.3-7.7); Neutrophils % (A) 64 %; Platelet Count 242 k/uL (150-450); RBC 4.56 m/uL (4.30-5.90); RDW 13.2 % (11.5-15.5); WBC 8.4 k/uL (3.8-10.6)
[2018-04-08 22:39] LABS: ALT 214 U/L (21-72); AST 104 U/L (17-59); Albumin 3.7 g/dL (3.5-5.0); Alkaline Phosphatase 78 U/L (38-126); Anion Gap 5 mmol/L; Blood Urea Nitrogen 18 mg/dL (9-20); Calcium 9.3 mg/dL (8.4-10.2); Carbon Dioxide 29 mmol/L (22-30); Chloride 106 mmol/L (98-107); Glucose 115 mg/dL (74-99); Potassium 4.5 mmol/L (3.5-5.1); Sodium 140 mmol/L (137-145); Total Bilirubin 0.5 mg/dL (0.2-1.3); Total Protein 7.1 g/dL (6.3-8.2)
--- NOTE | 2018-04-08 22:42 | XR ---
EXAMINATION TYPE: XR chest 2V DATE OF EXAM: 04/08/2018 COMPARISON: 03/05/2018 HISTORY: Short of breath TECHNIQUE: Frontal and lateral views of the chest are obtained. FINDINGS: There is blunting of right costophrenic angle. There is infiltrate at the right lung base. There is no heart failure. Heart and mediastinum are normal. There are chest leads. IMPRESSION: Right pleural effusion and right lower lobe pneumonia. No heart failure. No change.
[2018-04-08] MEDS ORDERED: oxyCODONE-APAP 5-325MG 1 EACH TAB PO STA (23:22)
--- NOTE | 2018-04-08 23:45 | CT ---
EXAMINATION TYPE: CT chest angio for PE DATE OF EXAM: 04/08/2018 COMPARISON: 03/05/2018 HISTORY: chest pain SOB CT DLP: 448 mGycm Automated exposure control for dose reduction was used. CONTRAST: CT Chest for pulmonary embolism performed with with IV Contrast, patient injected with 80 mL of Isovu e 370. There are 3-D post processed images. FINDINGS: There is moderate size right pleural effusion. There is no pericardial effusion. Left lung is fairly clear. There is some patchy infiltrate and atelectasis at the right lung base. There is slight elevat ed right diaphragm. There is normal contrast opacification of the pulmonary arteries. I see no filling defect. There is n o mediastinal adenopathy. There are no hilar masses. There is no pericardial effusion. There is some apparent diaphragmatic pleural calcification anteriorly on the right side. The bony thorax is intact. IMPRESSION: No evidence of pulmonary embolism. There is chronic right pleural effusion with basilar infiltrate an d atelectasis unchanged compared to old exam. Diaphragmatic pleural calcification.
--- NOTE | 2018-04-09 00:09 | US ---
EXAMINATION TYPE: US venous doppler duplex LE BI DATE OF EXAM: 04/08/2018 10:47 PM COMPARISON: NONE CLINICAL HISTORY: Pain. Swelling SIDE PERFORMED: Bilateral TECHNIQUE: The lower extremity deep venous system is examined utilizing real time linear array sonog dustin with graded compression, doppler sonography and color-flow sonography. VESSELS IMAGED: External Iliac Vein (EIV) Common Femoral Vein Deep Femoral Vein Greater Saphenous Vein * Femoral Vein Popliteal Vein Small Saphenous Vein * Proximal Calf Veins (* superficial vessels) Right Leg: Negative for DVT Left Leg: Negative for DVT IMPRESSION: No evidence of deep venous thrombosis in both legs.
[2018-04-09] MEDS ORDERED: KETOROLAC 30 MG/ML 1 ML VIAL IVP STA (00:31)
[2018-04-09 01:35] VITALS: TEMP 97.8
[2018-04-09 01:46] VITALS: BP 144/85; PULSE 81; RESP 18
== END 2018-04-09 01:33 | disposition home or self-care (01) ==
LOC: EC 21:16
DX: R07.9 Chest pain, unspecified (principal); R06.02 Shortness of breath; J44.9 Chronic obstructive pulmonary disease, unspecified; F32.9 Major depressive disorder, single episode, unspecified; F43.10 Post-traumatic stress disorder, unspecified; F90.9 Attention-deficit hyperactivity disorder, unspecified type; F41.9 Anxiety disorder, unspecified; F17.200 Nicotine dependence, unspecified, uncomplicated; I10 Essential (primary) hypertension; Z79.899 Other long term (current) drug therapy
CPT/HCPCS: 36415; 93005; 85379; 80053; 85025; 86140; 71046; 93970; 71275; 99285; 96374; J1885; Q9967

== ENCOUNTER 2018-04-10 15:31 | Observation (INO) | payer OTHER ==
[2018-04-10] MEDS ORDERED: IPRATROPIUM-ALBUTEROL 3 ML NEB INHALATION STA (17:06)
[2018-04-10] MEDS ORDERED: ONDANSETRON 4 MG/2 ML VIAL IVP STA (17:06)
[2018-04-10] MEDS ORDERED: SODIUM CHLORIDE 0.9% 500 ML 500 ML IV STA (17:06)
[2018-04-10] MEDS ORDERED: SODIUM CHLORIDE 0.9% 1,000 ML IV STA (17:06)
[2018-04-10] MEDS ORDERED: HYDROmorphone 1 MG/ML 1 ML SYRINGE IVP STA ×2 (17:07→19:54)
--- NOTE | 2018-04-10 17:18 | ED ---
General Adult HPI - General Chief complaint: Dizziness Stated complaint: SOB, Dizziness Time Seen by Provider: 04/10/18 16:51 Source: patient Mode of arrival: ambulatory Limitations: no limitations - History of Present Illness Initial comments: 37-year-old white male presents with a complaint of some right-sided chest pain. He apparently had diaphragmatic surgery in early February and has had pain to that area ever since. He states that his Percocet is not helping his pain. He has had some associated nausea and vomiting and slight dizziness/ lightheadedness. He states that he has been in and out of the hospital. He was just seen 2 days ago and had a computed tomography scan of the thorax that was negative for pulmonary embolism. He does have a right pleural effusion. He was admitted recently as well and was referred to pain management but states that he cannot get into pain management until the end of April. He states that he's had a slight cough which is unchanged. He denies any recent injuries. There's been no fevers or chills. No other complaints or modifying factors. He states that he feels as though he has some swelling to his right ankle and foot as well as his right elbow and his right upper abdomen. - Related Data Home Medications Medication Instructions Recorded Confirmed Albuterol Inhaler [Ventolin Hfa 1 - 2 puff INHALATION RT-Q6H PRN 07/03/17 Inhaler] Dextroamphetamine/Amphetamine 20 mg PO QAM 10/15/17 04/10/18 [Adderall Xr] OXcarbazepine [Trileptal] 300 mg PO BID 01/03/18 04/10/18 QUEtiapine FUMARATE 50 mg PO HS 01/03/18 04/10/18 Budesonide-Formot 160-4.5 Mcg 2 puff INHALATION RT-BID PRN 02/21/18 04/10/18 [Symbicort 160-4.5 Mcg Inhaler] Citalopram Hydrobromide [CeleXA] 40 mg PO HS 02/21/18 04/10/18 Albuterol Nebulized [Ventolin 2.5 mg INHALATION RT-QID PRN 03/05/18 04/10/18 Nebulized] Pregabalin [Lyrica] 100 mg PO TID 04/06/18 04/10/18 Previous Rx's Medication Instructions Recorded oxyCODONE-APAP 5-325MG [Percocet 1 tab PO Q4HR PRN 3 Days #18 tab 04/08/18 5-325 mg] Allergies Allergy/AdvReac Type Severity Reaction Status Date / Time tramadol Allergy Unknown Verified 04/10/18 16:37 Review of Systems ROS Statement: Those systems with pertinent positive or pertinent negative responses have been documented in the HPI. ROS Other: All systems not noted in ROS Statement are negative. 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, low back pain/DDD History of Any Multi-Drug Resistant Organisms: None Reported Past Surgical History: Appendectomy, Hernia Repair, Orthopedic Surgery, Tonsillectomy Additional Past Surgical History / Comment(s): rt forearm injury with surgery, R inguinal hernia surgeries x 3, oral surgery.rt Thoracotomy , diaphragm surgery Past Anesthesia/Blood Transfusion Reactions: Previous Problems w/ Anesthesia Additional Past Anesthesia/Blood Transfusion Reaction / Comment(s): "I wake up and start fighting and swinging" Past Psychological History: ADD/ADHD, Anxiety, Depression, PTSD Smoking Status: Current every day smoker Past Alcohol Use History: None Reported Past Drug Use History: Cocaine, Heroin, IV Drug Use - Past Family History Father Family Medical History: Hypertension Additional Family Medical History / Comment(s): Father was murdered. Mother Family Medical History: Cancer Additional Family Medical History / Comment(s): Mother of lung cancer at the age of 42 yrs. Brother(s) Family Medical History: Deep Vein Thrombosis (DVT) General Exam - General Exam Comments Initial Comments: GENERAL: The patient is well nourished and well hydrated. VITAL SIGNS: Heart rate, blood pressure, respiratory rate reviewed as recorded in nurse's notes. EYES: Pupils are round and reactive. Extraocular movements are intact. No conjunctival / lid redness or swelling. ENT: No external evidence of injury, swelling, or ecchymosis. Airway is patent. Throat is clear. NECK: Nontender. No swelling or evidence of injury. No subcutaneous emphysema. Trachea is midline. No thyroid mass. HEART: Regular rate and rhythm. Good peripheral pulses. LUNGS/CHEST: Breath sounds clear and equal bilaterally. No rales, rhonchi, or wheezes. There is a large scar noted over the right chest consistent with previous surgery. This is well-healed. There is associated tenderness all throughout this area both laterally and posteriorly. There is no subcutaneous emphysema or ecchymosis identified. ABDOMEN: Abdomen soft without tenderness. No palpable masses or organomegaly. No peritoneal signs. No abdominal wall swelling or ecchymosis. EXTREMITIES: No extremity tenderness. Normal muscle tone and function. No extremity swelling noted. NEUROLOGIC: Sensation is grossly intact. Cranial nerve exam reveals face is symmetrical, tongue is midline, speech is clear. SKIN: No abrasions or ecchymosis is noted. No induration or masses noted. PSYCHIATRIC: Alert and oriented. Appropriate behavior and judgment. Limitations: no limitations Course Vital Signs 04/10/18 04/10/18 04/10/18 15:36 17:00 17:30 Temperature 97.4 F L Pulse Rate 92 84 Respiratory 20 Rate Blood Pressure 149/95 147/92 155/111 O2 Sat by Pulse 99 98 96 Oximetry 04/10/18 04/10/18 04/10/18 17:38 18:30 19:41 Temperature Pulse Rate 86 79 Respiratory 16 Rate Blood Pressure 141/97 150/103 O2 Sat by Pulse 95 97 Oximetry Medical Decision Making - Medical Decision Making The patient is seen and examined. All diagnostics are reviewed. Old records are reviewed. An IV is established and he does receive some Dilaudid as well as some Zofran. IV fluids are administered. The patient relates that the pain medications helped initially but on recheck he states that the pain is fairly severe and another milligram of Dilaudid is ordered intravenously. The chest x- ray does show a proximal stable right pleural effusion. The laboratory overall is fairly unremarkable except for some mild chronic transaminitis. It appears as though the patient has some chronic pain problems which is currently intractable. He is requesting admission. He states that he was told in the past that he may be able to get some type of nerve block or epidural per anesthesia to help with the pain. He is unable to follow up with the pain clinic until the end of April. The case is discussed with Dr. Pérez and he is agreeable for observation admission in addition, his EKG does show a normal sinus rhythm at a rate of 75. There is no acute ST-T wave changes identified. The OH intervals 120, QRS duration is 88, and the QTC intervals 426. - Lab Data Result diagrams: 04/10/18 17:42 04/10/18 17:42 Lab Results 04/10/18 04/10/18 04/10/18 Range/Units 17:42 17:42 17:42 WBC 8.5 (3.8-10.6) k/uL RBC 5.03 (4.30-5.90) m/uL Hgb 15.0 (13.0-17.5) gm/dL Hct 46.6 (39.0-53.0) % MCV 92.7 (80.0-100.0) fL MCH 29.9 (25.0-35.0) pg MCHC 32.2 (31.0-37.0) g/dL RDW 13.2 (11.5-15.5) % Plt Count 268 (150-450) k/uL Neutrophils % 67 % Lymphocytes % 20 % Monocytes % 6 % Eosinophils % 2 % Basophils % 1 % Neutrophils # 5.7 (1.3-7.7) k/uL Lymphocytes # 1.7 (1.0-4.8) k/uL Monocytes # 0.5 (0-1.0) k/uL Eosinophils # 0.2 (0-0.7) k/uL Basophils # 0.1 (0-0.2) k/uL PT (9.0-12.0) sec INR (<1.2) APTT (22.0-30.0) sec Sodium 140 (137-145) mmol/L Potassium 5.3 H (3.5-5.1) mmol/L Chloride 108 H (98-107) mmol/L Carbon Dioxide 23 (22-30) mmol/L Anion Gap 9 mmol/L BUN 22 H (9-20) mg/dL Creatinine 0.87 (0.66-1.25) mg/dL Est GFR (CKD-EPI)AfAm >90 (>60 ml/min/1.73 sqM) Est GFR (CKD-EPI)NonAf >90 (>60 ml/min/1.73 sqM) Glucose 95 (74-99) mg/dL Calcium 9.4 (8.4-10.2) mg/dL Total Bilirubin 0.6 (0.2-1.3) mg/dL AST 135 H (17-59) U/L ALT 246 H (21-72) U/L Alkaline Phosphatase 77 (38-126) U/L Total Creatine Kinase 41 L (55-170) U/L CK-MB (CK-2) 0.6 (0.0-2.4) ng/mL CK-MB (CK-2) Rel Index 1.5 Troponin I <0.012 (0.000-0.034) ng/mL NT-Pro-B Natriuret Pep pg/mL Total Protein 7.5 (6.3-8.2) g/dL Albumin 3.8 (3.5-5.0) g/dL 04/10/18 04/10/18 Range/Units 17:42 17:42 WBC (3.8-10.6) k/uL RBC (4.30-5.90) m/uL Hgb (13.0-17.5) gm/dL Hct (39.0-53.0) % MCV (80.0-100.0) fL MCH (25.0-35.0) pg MCHC (31.0-37.0) g/dL RDW (11.5-15.5) % Plt Count (150-450) k/uL Neutrophils % % Lymphocytes % % Monocytes % % Eosinophils % % Basophils % % Neutrophils # (1.3-7.7) k/uL Lymphocytes # (1.0-4.8) k/uL Monocytes # (0-1.0) k/uL Eosinophils # (0-0.7) k/uL Basophils # (0-0.2) k/uL PT 10.1 (9.0-12.0) sec INR 1.0 (<1.2) APTT 24.6 (22.0-30.0) sec Sodium (137-145) mmol/L Potassium (3.5-5.1) mmol/L Chloride (98-107) mmol/L Carbon Dioxide (22-30) mmol/L Anion Gap mmol/L BUN (9-20) mg/dL Creatinine (0.66-1.25) mg/dL Est GFR (CKD-EPI)AfAm (>60 ml/min/1.73 sqM) Est GFR (CKD-EPI)NonAf (>60 ml/min/1.73 sqM) Glucose (74-99) mg/dL Calcium (8.4-10.2) mg/dL Total Bilirubin (0.2-1.3) mg/dL AST (17-59) U/L ALT (21-72) U/L Alkaline Phosphatase (38-126) U/L Total Creatine Kinase (55-170) U/L CK-MB (CK-2) (0.0-2.4) ng/mL CK-MB (CK-2) Rel Index Troponin I (0.000-0.034) ng/mL NT-Pro-B Natriuret Pep 163 pg/mL Total Protein (6.3-8.2) g/dL Albumin (3.5-5.0) g/dL Disposition Clinical Impression: Chronic chest wall pain, Nausea and vomiting, Hypertension, Dizziness, Recurrent pleural effusion on right, Intractable pain Disposition: ADMITTED IP TO THIS [facility] Condition: Fair Is patient prescribed a controlled substance at d/c from ED?: No Time of Disposition: 19:54 Decision Date: 04/10/18 Decision Time: 19:54
[2018-04-10 18:00] LABS: Basophils # (A) 0.1 k/uL (0-0.2); Basophils % (A) 1 %; Eosinophils # (A) 0.2 k/uL (0-0.7); Eosinophils % (A) 2 %; HCT 46.6 % (39.0-53.0); Lymphocytes # (A) 1.7 k/uL (1.0-4.8); Lymphocytes % (A) 20 %; MCH 29.9 pg (25.0-35.0); MCHC 32.2 g/dL (31.0-37.0); MCV 92.7 fL (80.0-100.0); Mean Platelet Volume 7.5; Monocytes # (A) 0.5 k/uL (0-1.0); Monocytes % (A) 6 %; Neutrophils # (A) 5.7 k/uL (1.3-7.7); Neutrophils % (A) 67 %; Platelet Count 268 k/uL (150-450); RBC 5.03 m/uL (4.30-5.90); RDW 13.2 % (11.5-15.5); WBC 8.5 k/uL (3.8-10.6)
[2018-04-10 18:07] LABS: Partial Thromboplastin Time 24.6 sec (22.0-30.0); Prothrombin Time 10.1 sec (9.0-12.0)
[2018-04-10 18:11] LABS: ALT 246 U/L (21-72); AST 135 U/L (17-59); Albumin 3.8 g/dL (3.5-5.0); Alkaline Phosphatase 77 U/L (38-126); Anion Gap 9 mmol/L; Blood Urea Nitrogen 22 mg/dL (9-20); Calcium 9.4 mg/dL (8.4-10.2); Carbon Dioxide 23 mmol/L (22-30); Chloride 108 mmol/L (98-107); Glucose 95 mg/dL (74-99); Potassium 5.3 mmol/L (3.5-5.1); Sodium 140 mmol/L (137-145); Total Bilirubin 0.6 mg/dL (0.2-1.3); Total Protein 7.5 g/dL (6.3-8.2)
[2018-04-10 18:31] LABS: Creatine Kinase 41 U/L (55-170)
--- NOTE | 2018-04-10 18:33 | XR ---
EXAMINATION: XR chest 2V DATE AND TIME: 04/10/2018 6:05 PM CLINICAL INDICATION: difficulty breathing TECHNIQUE: PA and lateral COMPARISON: 1980 at 10:35 PM FINDINGS: The previously seen right lung base airlessness and right pleural effusion is redemonstrated. The ove rall lung inflation pattern is similar to the prior study. The lungs and pleural spaces are otherwise unchanged. Cardiomediastinal silhouette and bones and soft tissues are unremarkable. IMPRESSION: Stable right lung base/pleural space findings as seen on the prior study 04/08/2018; no new process.
[2018-04-10 18:44] LABS: Creatine Kinase MB 0.6 ng/mL (0.0-2.4); Troponin I <0.012 ng/mL (0.000-0.034)
[2018-04-10] MEDS ORDERED: ACETAMINOPHEN TAB 325 MG TAB PO PRN (19:55)
[2018-04-10] MEDS ORDERED: ONDANSETRON 4 MG/2 ML VIAL IVP PRN (19:55)
[2018-04-10] MEDS ORDERED: NALOXONE 0.4 MG/ML 1 ML VIAL IV PRN (19:55)
[2018-04-10] MEDS ORDERED: ALBUTEROL NEBULIZED 2.5 MG/3 ML INHALATION PRN (20:01)
[2018-04-10] MEDS ORDERED: CITALOPRAM HYDROBROMIDE 20 MG TAB PO SCH (21:00)
[2018-04-10] MEDS ORDERED: QUEtiapine 50 MG TAB PO SCH (21:00)
[2018-04-10] MEDS: OXcarbazepine 300 MG TAB PO SCH (21:27)
[2018-04-10] MEDS: PREGABALIN 100 MG CAP PO SCH (21:29)
[2018-04-11] MEDS: HYDROmorphone 1 MG/ML 1 ML SYRINGE IVP PRN ×6 (00:33→19:12)
[2018-04-11] MEDS ORDERED: SYMBICORT 160-4.5 MCG INHALER INHALATION SCH (08:00)
[2018-04-11] MEDS: OXcarbazepine 300 MG TAB PO SCH (08:38)
[2018-04-11] MEDS ORDERED: PANTOPRAZOLE 40 MG/10 ML VIAL IV SCH (09:00)
[2018-04-11] MEDS ORDERED: ADDERALL 20 MG PO SCH (09:00)
[2018-04-11] MEDS ORDERED: ENOXAPARIN 40 MG/0.4 ML SYRINGE SQ SCH (09:00)
[2018-04-11] MEDS: PREGABALIN 100 MG CAP PO SCH ×2 (09:52→15:28)
[2018-04-11 13:28] LABS: Anion Gap 7 mmol/L; Blood Urea Nitrogen 18 mg/dL (9-20); Calcium 8.8 mg/dL (8.4-10.2); Carbon Dioxide 24 mmol/L (22-30); Chloride 108 mmol/L (98-107); Glucose 123 mg/dL (74-99); Potassium 4.5 mmol/L (3.5-5.1); Sodium 139 mmol/L (137-145)
--- NOTE | 2018-04-11 13:58 | P.HPIM ---
History of Present Illness 37-year-old the with a history of diaphragmatic plication in month of February was admitted recently because of continued severe sharp pain in the left side of the chest. At that time pain management evaluated the patient they recommended a local nerve block and follow-up as an outpatient. Patient was given. A prescription for Percocet and was discharged to follow-up with pain management services on Monday. Since and it was a week and we're unable to make an appointment for him with the pain management services. Patient did call the pain management services but unable to get the appointment on that'll end of April because of his continued pain came back to the hospital. Patient denied any fever chills nausea vomiting abdominal pain denied any lightheadedness. She was started on high-dose of opiates now. I'll consult pain management services. Was evaluated and able to set up an appointment for nerve block probably can be discharged. Review of Systems REVIEW OF SYSTEMS: CONSTITUTIONAL: No fever, no malaise, no fatigue. HEENT: No recent visual problems or hearing problems. Denied any sore throat. CARDIOVASCULAR: No chest pain, orthopnea, PND, no palpitations, no syncope. PULMONARY: No shortness of breath, no cough, no hemoptysis. GASTROINTESTINAL: No diarrhea, no nausea, no vomiting, no abdominal pain. Normoactive bowel sounds. NEUROLOGICAL: No headaches, no weakness, no numbness. HEMATOLOGICAL: Denies any bleeding or petechiae. GENITOURINARY: Denies any burning micturition, frequency, or urgency. MUSCULOSKELETAL/RHEUMATOLOGICAL: Mentioned in HPI ENDOCRINE: Denies any polyuria or polydipsia. The rest of the 14-point review of systems is negative. 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, low back pain/DDD History of Any Multi-Drug Resistant Organisms: None Reported Past Surgical History: Appendectomy, Hernia Repair, Orthopedic Surgery, Tonsillectomy Additional Past Surgical History / Comment(s): rt forearm injury with surgery, R inguinal hernia surgeries x 3, oral surgery.rt Thoracotomy , diaphragm surgery Past Anesthesia/Blood Transfusion Reactions: Previous Problems w/ Anesthesia Additional Past Anesthesia/Blood Transfusion Reaction / Comment(s): "I wake up and start fighting and swinging" Past Psychological History: ADD/ADHD, Anxiety, Depression, PTSD Additional Psychological History / Comment(s): . Smoking Status: Never smoker Past Alcohol Use History: None Reported Additional Past Alcohol Use History / Comment(s): Pt started smoking in 90's and was a 2 ppd smoker. He states he quit smoking 2 months ago. Past Drug Use History: Cocaine, Heroin, IV Drug Use Additional Drug Use History / Comment(s): Pt states he has had alcohol and drug use in the past, used crack and heroin. denies current use. - Past Family History Father Family Medical History: Hypertension Additional Family Medical History / Comment(s): Father was murdered. Mother Family Medical History: Cancer Additional Family Medical History / Comment(s): Mother of lung cancer at the age of 42 yrs. Brother(s) Family Medical History: Deep Vein Thrombosis (DVT) Medications and Allergies Home Medications Medication Instructions Recorded Confirmed Type Albuterol Inhaler [Ventolin Hfa 1 - 2 puff INHALATION RT-Q6H PRN 07/03/17 History Inhaler] Dextroamphetamine/Amphetamine 20 mg PO QAM 10/15/17 04/10/18 History [Adderall Xr] OXcarbazepine [Trileptal] 300 mg PO BID 01/03/18 04/10/18 History QUEtiapine FUMARATE 50 mg PO HS 01/03/18 04/10/18 History Budesonide-Formot 160-4.5 Mcg 2 puff INHALATION RT-BID PRN 02/21/18 04/10/18 History [Symbicort 160-4.5 Mcg Inhaler] Citalopram Hydrobromide [CeleXA] 40 mg PO HS 02/21/18 04/10/18 History Albuterol Nebulized [Ventolin 2.5 mg INHALATION RT-QID PRN 03/05/18 04/10/18 History Nebulized] Pregabalin [Lyrica] 100 mg PO TID 04/06/18 04/10/18 History oxyCODONE-APAP 5-325MG [Percocet 1 tab PO Q4HR PRN 3 Days #18 tab 04/08/1804/10 Rx 5-325 mg] Allergies Allergy/AdvReac Type Severity Reaction Status Date / Time tramadol Allergy Unknown Verified 04/10/18 16:37 Physical Exam Vitals: Vital Signs Temp Pulse Pulse Resp BP BP Pulse Ox 04/11/18 10:43 96.6 F L 86 17 131/81 97 04/11/18 07:00 97.5 F L 68 18 133/78 95 04/10/18 21:00 97.3 F L 65 18 134/83 97 04/10/18 19:41 79 16 150/103 97 04/10/18 18:30 141/97 95 04/10/18 17:38 86 04/10/18 17:30 84 155/111 96 04/10/18 17:00 147/92 98 04/10/18 15:36 97.4 F L 92 20 149/95 99 Intake and Output 04/10/18 04/11/18 04/11/18 22:59 06:59 14:59 Intake Total 500 600 240 Balance 500 600 240 Intake: Oral 500 600 240 Other: Voiding Method Toilet # Voids 1 2 Weight 106.594 kg 105.4 kg PHYSICAL EXAMINATION: GENERAL: The patient is alert and oriented x3, not in any acute distress. Well developed, well nourished. HEENT: Pupils are round and equally reacting to light. EOMI. No scleral icterus. No conjunctival pallor. Normocephalic, atraumatic. No pharyngeal erythema. No thyromegaly. CARDIOVASCULAR: S1 and S2 present. No murmurs, rubs, or gallops. PULMONARY: Chest is clear to auscultation, no wheezing or crackles. ABDOMEN: Soft, nontender, nondistended, normoactive bowel sounds. No palpable organomegaly. MUSCULOSKELETAL: No joint swelling or deformity. EXTREMITIES: No cyanosis, clubbing, or pedal edema. NEUROLOGICAL: Gross neurological examination did not reveal any focal deficits. SKIN: No rashes. Results CBC & Chem 7: 04/10/18 17:42 04/11/18 12:52 Labs: Abnormal Lab Results - Last 24 Hours (Table) 04/10/18 04/10/18 04/11/18 Range/Units 17:42 17:42 12:52 Potassium 5.3 H (3.5-5.1) mmol/L Chloride 108 H 108 H (98-107) mmol/L BUN 22 H (9-20) mg/dL Glucose 123 H (74-99) mg/dL AST 135 H (17-59) U/L ALT 246 H (21-72) U/L Total Creatine Kinase 41 L (55-170) U/L Thrombosis Risk Factor Assmnt - Choose All That Apply Any of the Below Risk Factors Present?: Yes Each Factor Represents 1 point: Obesity (BMI >25) Thrombosis Risk Factor Assessment Total Risk Factor Score: 1 Thrombosis Risk Factor Assessment Level: Low Risk Assessment and Plan Plan: -Seroma of right side of the chest., Causing chest pain: No further intervention was recommended during his recent hospitalization by general surgeon cardio thoracic surgery pain and management as mentioned above -Diaphragmatic plication for diaphragmatic paralysis recently -Hypertension can you with lisinopril -Anxiety disorder
[2018-04-11] MEDS ORDERED: oxyCODONE-APAP 5-325MG 1 EACH TAB PO PRN (14:37)
[2018-04-11 15:30] VITALS: BP 114/77; PULSE 74; RESP 18; TEMP 98.1
--- NOTE | 2018-04-11 16:31 | P.CNPUL ---
History of Present Illness Consult date: 04/11/18 Requesting physician: Fani Garsia Reason for consult: other Chief complaint: Lightheadedness, dizziness, nausea, vomiting, right-sided chest wall pain History of present illness: This is a 37-year-old white male patient that is known to our service from previous hospitalizations for right-sided diaphragmatic paralysis, status post right-sided diaphragmatic plication ongoing 02/22/[address] Sotelo. Patient follows with Dr. Ceja, who diagnosed him with his diaphragmatic paralysis. Patient had a hospitalization last week after sustaining a fall in the shower, and falling onto his right side, and sustaining right chest wall seroma along the incision site. Patient was seen by CT surgery, and no surgical intervention was recommended. Patient was seen by pain services, who recommended to continue with Lyrica, Percocet. He was supposed to have a outpatient follow-up with pain services on Monday, however his appointment was not scheduled, and he needed referral from his primary care physician. He is having ongoing right-sided chest wall discomfort. He states his Percocet is not helping his pain. Is having some nausea and vomiting, slight dizziness and lightheadedness. Fever or chills. Chest x-ray was completed, showed a stable right lung base/pleural base findings similar to the prior study on 04/08/2018, no new process. EKG showed normal sinus rhythm. Afebrile, room air pulse ox 97 %. Vital signs are stable. Lung sounds are clear, diminished at the right base. No chest congestion, no wheezing, no phlegm production, no hemoptysis. Patient is on IV Dilaudid every 3 hours as needed for his pain. We will restart his home dose Percocet, in looking continue Dilaudid for breakthrough pain. Pain services have been consulted. Patient continues on Lyrica 100 mg 3 times a day. Is given a liter bolus in the emergency department. Lab work showed no evidence of leukocytosis, sodium was 140, potassium is 5.3, improved after hydration, down to 4.5 on today's labs. Chloride is 108, BUN is 22, creatinine 0.87, AST was 135, ALT was 246, troponin was negative 1, proBNP is within normal limits at 163. Past medical history is positive for COPD, previous tobacco dependence, hypertension, chronic low back pain, chronic anxiety depression, previous IV drug use, chronic hepatitis C, ADD/ADHD and PTSD. Review of Systems All systems: negative Constitutional: Denies chills, Denies fever Eyes: denies blurred vision, denies pain Ears, nose, mouth and throat: Denies headache, Denies sore throat Cardiovascular: Denies chest pain, Denies shortness of breath Respiratory: Reports pain, Denies cough Gastrointestinal: Denies abdominal pain, Denies diarrhea, Denies nausea, Denies vomiting Musculoskeletal: Denies myalgias Integumentary: Denies pruritus, Denies rash Neurological: Denies numbness, Denies weakness Psychiatric: Denies anxiety, Denies depression Endocrine: Denies fatigue, Denies weight change 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, low back pain/DDD History of Any Multi-Drug Resistant Organisms: None Reported Past Surgical History: Appendectomy, Hernia Repair, Orthopedic Surgery, Tonsillectomy Additional Past Surgical History / Comment(s): rt forearm injury with surgery, R inguinal hernia surgeries x 3, oral surgery.rt Thoracotomy , diaphragm surgery Past Anesthesia/Blood Transfusion Reactions: Previous Problems w/ Anesthesia Additional Past Anesthesia/Blood Transfusion Reaction / Comment(s): "I wake up and start fighting and swinging" Past Psychological History: ADD/ADHD, Anxiety, Depression, PTSD Additional Psychological History / Comment(s): . Smoking Status: Never smoker Past Alcohol Use History: None Reported Additional Past Alcohol Use History / Comment(s): Pt started smoking in 's and was a 2 ppd smoker. He states he quit smoking 2 months ago. Past Drug Use History: Cocaine, Heroin, IV Drug Use Additional Drug Use History / Comment(s): Pt states he has had alcohol and drug use in the past, used crack and heroin. denies current use. - Past Family History Father Family Medical History: Hypertension Additional Family Medical History / Comment(s): Father was murdered. Mother Family Medical History: Cancer Additional Family Medical History / Comment(s): Mother of lung cancer at the age of 42 yrs. Brother(s) Family Medical History: Deep Vein Thrombosis (DVT) Medications and Allergies Home Medications Medication Instructions Recorded Confirmed Type Albuterol Inhaler [Ventolin Hfa 1 - 2 puff INHALATION RT-Q6H PRN 07/03/17 History Inhaler] Dextroamphetamine/Amphetamine 20 mg PO QAM 10/15/17 04/10/18 History [Adderall Xr] OXcarbazepine [Trileptal] 300 mg PO BID 01/03/18 04/10/18 History QUEtiapine FUMARATE 50 mg PO HS 01/03/18 04/10/18 History Budesonide-Formot 160-4.5 Mcg 2 puff INHALATION RT-BID PRN 02/21/18 04/10/18 History [Symbicort 160-4.5 Mcg Inhaler] Citalopram Hydrobromide [CeleXA] 40 mg PO HS 02/21/18 04/10/18 History Albuterol Nebulized [Ventolin 2.5 mg INHALATION RT-QID PRN 03/05/18 04/10/18 History Nebulized] Pregabalin [Lyrica] 100 mg PO TID 04/06/18 04/10/18 History oxyCODONE-APAP 5-325MG [Percocet 1 tab PO Q4HR PRN 3 Days #18 tab 04/08/1804/10 Rx 5-325 mg] Allergies Allergy/AdvReac Type Severity Reaction Status Date / Time tramadol Allergy Unknown Verified 04/10/18 16:37 Physical Exam Vitals: Vital Signs Temp Pulse Pulse Resp BP BP Pulse Ox 04/11/18 15:00 98.1 F 74 18 114/77 97 04/11/18 10:43 96.6 F L 86 17 131/81 97 04/11/18 07:00 97.5 F L 68 18 133/78 95 04/10/18 21:00 97.3 F L 65 18 134/83 97 04/10/18 19:41 79 16 150/103 97 04/10/18 18:30 141/97 95 04/10/18 17:38 86 04/10/18 17:30 84 155/111 96 04/10/18 17:00 147/92 98 Intake and Output 04/11/18 04/11/18 04/11/18 06:59 14:59 22:59 Intake Total 600 480 Balance 600 480 Intake: Intake, IV Titration 0 Amount Sodium Chloride 0.9% 500 0 ml 500 ml @ 999 mls/hr IV .Q31M STA Rx#:[id number] Oral 600 480 Other: Voiding Method Toilet # Voids 2 Weight 105.4 kg GENERAL EXAM: Alert, pleasant 37-year-old white male comfortable in no apparent distress. HEAD: Normocephalic/atraumatic. EYES: Normal reaction of pupils, equal size. Conjunctiva pink, sclera white. NOSE: Clear with pink turbinates. THROAT: No erythema or exudates. NECK: No masses, no JVD, no thyroid enlargement, no adenopathy. CHEST: No chest wall deformity. Symmetrical expansion. Healed surgical scar on the right side of the lower chest, no swelling, no redness, no bruising LUNGS: Equal air entry with no crackles, wheeze, rhonchi or dullness. Diminished breath sounds at the right lower base CVS: Regular rate and rhythm, normal S1 and S2, no gallops, no murmurs, no rubs ABDOMEN: Soft, nontender. No hepatosplenomegaly, normal bowel sounds, no guarding or rigidity. EXTREMITIES: No clubbing, no edema, no cyanosis, 2+ pulses and upper and lower extremities. MUSCULOSKELETAL: Muscle strength and tone normal. SPINE: No scoliosis or deformity SKIN: No rashes CENTRAL NERVOUS SYSTEM: Alert and oriented -3. No focal deficits, tone is normal in all 4 extremities. PSYCHIATRIC: Alert and oriented -3. Appropriate affect. Intact judgment and insight. Results - Laboratory Findings CBC and BMP: 04/10/18 17:42 04/11/18 12:52 PT/INR, D-dimer PT 10.1 sec (9.0-12.0) 04/10/18 17:42 INR 1.0 (<1.2) 04/10/18 17:42 Abnormal lab findings: Abnormal Labs 04/10/18 04/10/18 04/11/18 17:42 17:42 12:52 Potassium 5.3 H Chloride 108 H 108 H BUN 22 H Glucose 123 H AST 135 H ALT 246 H Total Creatine Kinase 41 L - Diagnostic Findings Chest x-ray: report reviewed, image reviewed Assessment and Plan Plan: Assessment: #1. Seroma of the right chest wall, post fall last week #2. Recent right diaphragmatic plication for right diaphragmatic paralysis #3. History of COPD, currently stable #4. Former nicotine dependence #5. Hypertension #6. Chronic back pain, chronic anxiety and depression, ADD/ADHD, PTSD #7. Chronic hepatitis C, history of IVDA Plan: We'll consult pain services regarding the right chest wall seroma. Continue patient's Percocet and continue with IV Dilaudid for breakthrough pain. Continue Lyrica. COPD stable. Incentive spirometry, we'll continue with his Symbicort, nebulized bronchodilators. Increase activity, encourage ambulation. No lightheadedness or dizziness, no further nausea or vomiting. I performed a history & physical examination of the patient and discussed their management with my nurse practitioner, Samantha Farley. I reviewed the nurse practitioner's note and agree with the documented findings and plan of care. Lung sounds are positive for diminished breath sounds over right lower lobe. The findings and the impression was discussed with the patient. I attest to the documentation by the nurse practitioner. Time with Patient: Greater than 30
--- NOTE | 2018-04-11 17:46 | P.PN ---
Subjective Progress Note Date: 04/11/18 Principal diagnosis: intercostal neuralgia This is a 37-year-old gentleman who presents today with continued right-sided chest pain. He continues to have right-sided chest pain after a thoracotomy which was done on 02/22/2018. He was seen in the hospital over the weekend for continued pain. We have increased his Lyrica at the time advised him to follow up in our clinic. He was given increased amounts of opioids during his stay he did not go to the pain clinic as he reports that he needed a referral from his doctor. His pain is a sharp shooting pain over the right side of his chest wall with associated numbness and tingling. He reports his pain is worse with deep breaths. He has a history of pre-existing chronic obstructive pulmonary disease. He has a history of chronic pain, chronic anxiety, depression, ADHD, hepatitis C secondary to history IV drug abuse. Objective - Vital Signs Vital signs: Vital Signs Temp 98.1 F 04/11/18 15:00 Pulse 74 04/11/18 15:00 Resp 18 04/11/18 15:00 BP 114/77 04/11/18 15:00 Pulse Ox 97 04/11/18 15:00 Intake & Output 04/10/18 04/11/18 04/11/18 18:59 06:59 18:59 Intake Total 1100 480 Balance 1100 480 Weight 106.594 kg 106.594 kg 105.4 kg Intake: Intake, IV Titration 0 Amount Sodium Chloride 0.9% 500 0 ml 500 ml @ 999 mls/hr IV .Q31M STA Rx#:[id number] Oral 1100 480 Other: Voiding Method Toilet # Voids 2 - Exam General: Awake alert minimal distress Cardiac exam regular rate, regular rhythm, probable pulses in bilateral upper and lower extremities. Pulmonary exam: Clear to auscultation bilaterally. No wheezing. Abdominal exam soft nontender [place] skeletal exam: Tender to palpation over the paravertebral area on the right, especially above and below the surgical scar, , surgical scars are healing well. Upper and lower extremities muscle strength and range of motion are preserved - Labs CBC & Chem 7: 04/10/18 17:42 04/11/18 12:52 Labs: Abnormal Lab Results - Last 24 Hours (Table) 04/10/18 04/10/18 04/11/18 Range/Units 17:42 17:42 12:52 Potassium 5.3 H (3.5-5.1) mmol/L Chloride 108 H 108 H (98-107) mmol/L BUN 22 H (9-20) mg/dL Glucose 123 H (74-99) mg/dL AST 135 H (17-59) U/L ALT 246 H (21-72) U/L Total Creatine Kinase 41 L (55-170) U/L Assessment and Plan Assessment: #1 intercostal neuralgia #2 chronic pain #3 chronic opioid dependence Plan: Plan: Continue current medications. Add lidocaine patch to the affected area. Patient is on Lovenox in the hospital. He should be given a referral for the pain clinic to be seen as soon as possible. Please have him call the pain clinic in reference the inpatient consult newly seen as soon as possible. I will give the patient a script for percocet 10mg q8h for 7 days #21 and will give him lidocaine patches for 7 days as well. Time with Patient: Less than 30
[2018-04-11] MEDS ORDERED: LIDOCAINE 5% PATCH TOPICAL SCH (18:45)
[2018-04-11] MEDS ORDERED: oxyCODONE-APAP 10-325MG 1 EACH TAB PO ONE (18:45)
--- NOTE | 2018-04-11 20:15 | P.DS ---
Providers Date of admission: 04/10/18 19:54 Attending physician: Basil Chaparro Primary care physician: Eliseo Segovia [facility] Course: Please refer to my HPI. Patient was later evaluated by pain management and was cleared by them, appropriate scripts for pain as well as appointment was provided by pain service and patient was discharged. Patient Condition at Discharge: Fair Plan - Discharge Summary New Discharge Prescriptions: Continue Albuterol Inhaler [Ventolin Hfa Inhaler] 1 - 2 puff INHALATION RT-Q6H PRN PRN Reason: Shortness Of Breath Dextroamphetamine/Amphetamine [Adderall Xr] 20 mg PO QAM OXcarbazepine [Trileptal] 300 mg PO BID QUEtiapine FUMARATE 50 mg PO HS Budesonide-Formot 160-4.5 Mcg [Symbicort 160-4.5 Mcg Inhaler] 2 puff INHALATION RT-BID PRN PRN Reason: sob Citalopram Hydrobromide [CeleXA] 40 mg PO HS Albuterol Nebulized [Ventolin Nebulized] 2.5 mg INHALATION RT-QID PRN PRN Reason: Shortness Of Breath Pregabalin [Lyrica] 100 mg PO TID oxyCODONE-APAP 5-325MG [Percocet 5-325 mg] 1 tab PO Q4HR PRN 3 Days #18 tab PRN Reason: Pain Discharge Medication List Albuterol Inhaler [Ventolin Hfa Inhaler] 1 - 2 puff INHALATION RT-Q6H PRN [History] Dextroamphetamine/Amphetamine [Adderall Xr] 20 mg PO QAM 10/15/17 [History] OXcarbazepine [Trileptal] 300 mg PO BID 01/03/18 [History] QUEtiapine FUMARATE 50 mg PO HS 01/03/18 [History] Budesonide-Formot 160-4.5 Mcg [Symbicort 160-4.5 Mcg Inhaler] 2 puff INHALATION RT-BID PRN 02/21/18 [History] Citalopram Hydrobromide [CeleXA] 40 mg PO HS 02/21/18 [History] Albuterol Nebulized [Ventolin Nebulized] 2.5 mg INHALATION RT-QID PRN 03/05/18 [ History] Pregabalin [Lyrica] 100 mg PO TID 04/06/18 [History] oxyCODONE-APAP 5-325MG [Percocet 5-325 mg] 1 tab PO Q4HR PRN 3 Days #18 tab [Rx] Follow up Appointment(s)/Referral(s): Carlos Levy MD [STAFF PHYSICIAN] - 1 Week Eliseo Segovia MD [Primary Care Provider] - 3 Days Javon Lima MD [STAFF PHYSICIAN] - 2 Weeks Activity/Diet/Wound Care/Special Instructions: Manual scrips left for Percocet 10, every 8 hours when necessary and lidocaine patch every 12 hours per pain management Please call primary care provider to make followup appointment. Pain Clinic will call in the next day to make a follow up appointment. Discharge Disposition: HOME SELF-CARE
== END 2018-04-11 19:55 | disposition home or self-care (01) ==
LOC: EC 15:31 → 4MS4W 19:54
PROVIDERS: ADMIT Internal Medicine; ATTEND Internal Medicine
DX: T88.8XXA Other specified complications of surgical and medical care, not elsewhere classified, initial encounter (principal); G58.0 Intercostal neuropathy; J44.9 Chronic obstructive pulmonary disease, unspecified; B18.2 Chronic viral hepatitis C; J90 Pleural effusion, not elsewhere classified; G89.29 Other chronic pain; R07.89 Other chest pain; M54.5 Low back pain; I10 Essential (primary) hypertension; J98.6 Disorders of diaphragm; F90.9 Attention-deficit hyperactivity disorder, unspecified type; F43.10 Post-traumatic stress disorder, unspecified; F32.9 Major depressive disorder, single episode, unspecified; F41.9 Anxiety disorder, unspecified; F17.200 Nicotine dependence, unspecified, uncomplicated; F11.20 Opioid dependence, uncomplicated; R74.0 Nonspecific elevation of levels of transaminase and lactic acid dehydrogenase [LDH]; E66.9 Obesity, unspecified; Z68.28 Body mass index [BMI] 28.0-28.9, adult; Z79.51 Long term (current) use of inhaled steroids; Z79.899 Other long term (current) drug therapy; Z88.5 Allergy status to narcotic agent; Z87.01 Personal history of pneumonia (recurrent); Z90.89 Acquired absence of other organs; Z87.898 Personal history of other specified conditions; Z82.49 Family history of ischemic heart disease and other diseases of the circulatory system; Z80.1 Family history of malignant neoplasm of trachea, bronchus and lung; Z83.2 Family history of diseases of the blood and blood-forming organs and certain disorders involving the immune mechanism; W18.2XXA Fall in (into) shower or empty bathtub, initial encounter; Y93.E1 Activity, personal bathing and showering
CPT/HCPCS: 96376 ×2; 96361 ×3; 96372; 96375 ×2; 96374; 99285; 36415; 94640; 93005; 83880; 80053; 80048; 82550; 82553; 84484; 85025; 85610; 85730; 87040; 71046; G0378 ×2; J2405; J1650; J1170 ×2; C9113

== ENCOUNTER → 2018-04-16 | Outpatient (CLI) | payer OTHER ==
[2018-04-13 14:59] VITALS: BMI 29.0
[2018-04-16 13:47] VITALS: BP 145/83; PULSE 79; RESP 16
--- NOTE | 2018-04-17 08:29 | P.PAINPG ---
Subjective Progress Note Date: 04/16/18 This is a follow-up visit for this 37 years old male, who was diagnosed with right-sided post thoracotomy pain syndrome, patient had thoracotomy surgery done more than 2 months ago, he is continuing to have severe right-sided chest wall pain, it is constant, aching and burning ,numbness , pain , radiated from the right side of the spine towards the right side chest wall , patient was seen as an inpatient , and he came for follow-up visit , his currently on Lyrica 100 mg 3 times a day and Percocet 10/325 every 6 hours , and Lidoderm patch , he denies any side effects of the medication and he reports these medications helping him to some degree , he continued to have severe pain intensity of the pain 11/26 , and the pain increases with any activity , deep breathing , patient was evaluated by cardiovascular surgeon and he told him that he had seroma at the surgical area , but is not big enough to have surgical intervention, Objective - Vital Signs Vital signs: Vital Signs Temp Pulse 79 04/16/18 13:20 Resp 16 04/16/18 13:20 BP 145/83 04/16/18 13:20 Pulse Ox - Exam Physical Examinations : 1-Constitutiona : Cooperative , not in acute distress . 2-HEENT : nech ; supple , no Lymphadenopathy , normal thyroid size . eyes : no ptosis , no icterus, no photophobia . ENT : normal of hearing , normal oropharynx , no Thrush . 3- Respiratory : Chest clear to auscultations Bilaterally , no wheezing , no Rhonchi . 4- Cardiovascular : regular rate and rhythem , S1 , S2 , no S3 , no S4. 5- Gastrointestinal : abdomen soft no tenderness , bowel sounds , no organomegally . 6- Genitourinary : Defferred . 7- neurologic : Cranial nerve II to XII intact , no focal neurological deffecit . 8-psychatric : alert , oriented X 3 , appropriate affect , intact judgment and insight . 9-Lymphatic : no Lymphadenopathy . 10- musculoskeltal : Allodynia, sever tenderness, over the thoracic spine from T5 to T9, Assessment and Plan Plan: Assessment and plan= post thoracotomy pain syndrome, right side T5 to T9 Patient will be good candidate to have intercostal nerve block right side T5 to T9 Patient given prescription for Percocet 03/6025 every 6 hours dispense 120 We will increase Lyrica 250 mg 3 times a day, patient could benefit from Mobic 15 mg daily, refill on Lidoderm patch 5% 12 hours on 12 hours off Patient's signed the narcotic agreement, and I discussed with the patient the risk versus benefits of opioid, and I explained to him that there is risk for addiction ,tolerance, and constipation, could be associated with opioid Urine drug screen ordered. MAPS reviewed, and it was ok Time with Patient: Less than 30 PQRS Measure Charge Sheet Measure #130: Documentation of Current Meds in Medical Chart: Patient's medications documented in chart Measure #226: Tobacco Use: Screen & Cessation Intervention: Pt not a tobacco user Measure #111: Pneumonia Vaccination: Pneumococcal vaccine NOT administered or previously given Measure #47: Advance Care Plan: Advance care planning discussed & documented, pt chose/unable to give Measure #412: Opioid Treatment Agreement: Documented signed opioid trtmnt agreemnt min once during opioid trtmnt Measure #408: Opioid Therapy Follow-up Evaluation: Patient had f/u eval minimum every 3 months during opioid therapy Measure #317: Preventitive Care & Scrn High Bld Press & F/U: Pre-hypertensive or hypertensive BP documented, pt will f/u with PCP Measure #128: Body Mass Index (BMI) Screening & Follow-up: BMI documented ABOVE normal parameters - f/u documented Measure #131: Pain Assessment & Follow-up: Pain positive & plan documented, Follow-up scheduled Measure #431: Unhealthy Alcohol Use Preventative Care & Scrn: Patient not identified as an unhealthy alcohol user PQRS Narrative: Smoking Status Current some day smoker Do You Want the Pneumonia No Vaccine AT THIS TIME? Narcotic Agreement Date Signed 04/16/18 Blood Pressure 145/83 Pain Intensity [Right Chest] 8 Scale Used Numeric (1 - 10) Hx Alcohol Use (MH) No Home Medications: Ambulatory Orders Albuterol Inhaler [Ventolin Hfa Inhaler] 1 - 2 puff INHALATION RT-Q6H PRN Dextroamphetamine/Amphetamine [Adderall Xr] 20 mg PO QAM 10/15/17 OXcarbazepine [Trileptal] 300 mg PO BID 01/03/18 QUEtiapine FUMARATE 50 mg PO HS 01/03/18 Budesonide-Formot 160-4.5 Mcg [Symbicort 160-4.5 Mcg Inhaler] 2 puff INHALATION RT-BID PRN 02/21/18 Citalopram Hydrobromide [CeleXA] 40 mg PO HS 02/21/18 Albuterol Nebulized [Ventolin Nebulized] 2.5 mg INHALATION RT-QID PRN 03/05/18 Pregabalin [Lyrica] 150 mg PO TID 04/06/18 oxyCODONE-APAP 10-325MG [Percocet 10-325 mg] 1 tab PO Q6HR PRN 04/13/18 Lidocaine 5% Patch [Lidoderm 5% Patch] 1 patch TOPICAL Q24HR 04/16/18 Meloxicam [Mobic] 15 mg PO DAILY 04/16/18 Controlled Substance Measures - Controlled Substance Measures Is patient prescribed a controlled substance at discharge?: Yes When asked, does pt state using other controlled substances?: No If prescribed controlled substance>3 days was MAPS reviewed?: Yes If Rx opioid, was Start Talking consent form obtained?: Yes If opioid is for acute pain is fill amount 7 days or less?: No Was information provided regarding opioid addiction?: Yes
== END ==
LOC: PNWHC3 12:40
PROVIDERS: ATTEND Specialist
DX: T81.89XA Other complications of procedures, not elsewhere classified, initial encounter (principal); F17.200 Nicotine dependence, unspecified, uncomplicated; Z79.899 Other long term (current) drug therapy; Z79.1 Long term (current) use of non-steroidal anti-inflammatories (NSAID)
CPT/HCPCS: 80307; G0482; G0463; 99211

== ENCOUNTER 2019-03-20 05:18 | Emergency (ER) | payer OTHER ==
[2019-03-20 05:30] VITALS: TEMP 98.1
[2019-03-20] MEDS ORDERED: PANTOPRAZOLE 40 MG/10 ML VIAL IVP STA (06:24)
[2019-03-20] MEDS ORDERED: SODIUM CHLORIDE 0.9% 1,000 ML IV STA (06:24)
[2019-03-20] MEDS ORDERED: ONDANSETRON 4 MG/2 ML VIAL IVP STA (06:24)
[2019-03-20] MEDS ORDERED: MORPHINE SULFATE 4 MG/ML SYRINGE IV STA (06:24)
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
[2019-03-20 07:02] LABS: Basophils # (A) 0.2 k/uL (0-0.2); Basophils % (A) 1 %; Eosinophils # (A) 0.2 k/uL (0-0.7); Eosinophils % (A) 2 %; HGB 15.5 gm/dL (13.0-17.5); Lymphocytes # (A) 2.3 k/uL (1.0-4.8); Lymphocytes % (A) 20 %; MCH 30.2 pg (25.0-35.0); MCHC 31.7 g/dL (31.0-37.0); MCV 95.2 fL (80.0-100.0); Monocytes # (A) 0.8 k/uL (0-1.0); Monocytes % (A) 7 %; Neutrophils # (A) 7.9 k/uL (1.3-7.7); Neutrophils % (A) 69 %; Platelet Count 295 k/uL (150-450); RBC 5.14 m/uL (4.30-5.90); WBC 11.5 k/uL (3.8-10.6)
[2019-03-20 07:13] LABS: ALT 37 U/L (21-72); AST 24 U/L (17-59); African American GFR (CKD) >90 (>60 ml/min/1.73 sqM); Albumin 3.8 g/dL (3.5-5.0); Alkaline Phosphatase 98 U/L (38-126); Amylase 84 U/L (30-110); Anion Gap 9 mmol/L; Blood Urea Nitrogen 15 mg/dL (9-20); Calcium 9.6 mg/dL (8.4-10.2); Carbon Dioxide 28 mmol/L (22-30); Chloride 103 mmol/L (98-107); Glucose 159 mg/dL (74-99); Potassium 4.6 mmol/L (3.5-5.1); Sodium 140 mmol/L (137-145); Total Bilirubin 0.6 mg/dL (0.2-1.3); Total Protein 7.1 g/dL (6.3-8.2)
[2019-03-20 07:39] LABS: INR 0.9 (<1.2); Partial Thromboplastin Time 26.4 sec (22.0-30.0); Prothrombin Time 10.2 sec (9.0-12.0)
--- NOTE | 2019-03-20 07:57 | CT ---
EXAMINATION TYPE: CT abdomen pelvis w con DATE OF EXAM: 03/20/2019 COMPARISON: 04/06/2018 HISTORY: LLQ pain, bloody stool CT DLP: 2094.1 mGycm CONTRAST: CT scan of the abdomen and pelvis is performed without Oral Contrast and with IV Contrast, patient in jected with 100 mL of Isovue 300. FINDINGS: LUNG BASES-: No visible nodule. No infiltrate. There is right basilar atelectasis identified. LIVER/GB: No calcified gallstones. No space occupying hepatic lesion. Biliary tree is of normal ca liber. PANCREAS: No inflammation. No distinct mass. SPLEEN: No splenic enlargement. No lesion seen. ADRENALS: No nodule. No thickening. KIDNEYS/BLADDER: No hydronephrosis. No nephrolithiasis. No distinct renal mass. Urinary bladder g rossly unremarkable. BOWEL: There is wall thickening noted to involve portions of the colon extending from the hepatic fle xure through the descending colon which may reflect nonspecific colitis. Correlate for various infect ious and inflammatory etiologies. No evidence for free air or abscess. Scattered diverticulosis witho ut diverticulitis. Appendectomy clips are identified right lower quadrant. GENITAL ORGANS: No gross abnormality. LYMPH NODES: No greater than 1cm abdominal or pelvic lymph nodes are appreciated. AORTA: No significant abnormality. OSSEOUS STRUCTURES: No significant abnormality is seen. OTHER: Fat-containing left inguinal hernia. IMPRESSION: 1. Findings felt to reflect nonspecific colitis. Correlate clinically.
[2019-03-20 08:24] LABS: Appearance,Urine Clear (Clear); Bilirubin,Urine Negative (Negative); Blood,Urine Negative (Negative); Color,Urine Light Yellow; Glucose,Urine (UA) Negative (Negative); Ketones,Urine Negative (Negative); Leukocyte Esterase,Urine Negative (Negative); Nitrite,Urine Negative (Negative); Protein,Urine Negative (Negative); Specific Gravity,Urine 1.039 (1.001-1.035); Urobilinogen,Urine <2.0 mg/dL (<2.0)
[2019-03-20 08:53] VITALS: BP 139/85; PULSE 70; RESP 16
== END 2019-03-20 08:53 | disposition home or self-care (01) ==
LOC: EC 05:18
DX: K40.90 Unilateral inguinal hernia, without obstruction or gangrene, not specified as recurrent (principal); K52.9 Noninfective gastroenteritis and colitis, unspecified; J44.9 Chronic obstructive pulmonary disease, unspecified; I10 Essential (primary) hypertension; F32.9 Major depressive disorder, single episode, unspecified; F41.9 Anxiety disorder, unspecified; F17.200 Nicotine dependence, unspecified, uncomplicated; Z88.5 Allergy status to narcotic agent; Z79.899 Other long term (current) drug therapy; Z90.49 Acquired absence of other specified parts of digestive tract; Z98.890 Other specified postprocedural states
CPT/HCPCS: 36415; 80053; 82150; 83690; 85025; 85610; 85730; 82272; 81003; 74177; 99284; 96374; 96375 ×2; 96361 ×2; J2270; J2405; C9113; Q9967

== ENCOUNTER 2019-04-09 08:00 | Day surgery (SDC) | payer OTHER ==
[2019-04-05 12:57] VITALS: BMI 33.7
[~2019-04-09 08:00] MED LIST changes: +HEPARIN SODIUM,PORCINE 5,000 UNIT/ML 1 ML VIAL SQ ONE; +LIDOCAINE 1% 20 ML VIAL (10MG/ML) FOR IV START INTRADERMA PRN; -MIDAZOLAM 2 MG/2 ML VIAL IV PRN; -SCOPOLAMINE 1.5MG/72HR PATCH TRANSDERM ONE; +ceFAZolin 3 GM in SODIUM CHLORIDE 0.9% 100 ML IVPB ONE; -ceFAZolin IN SWFI 2 GM/20 ML SYRINGE IVP ONE
[2019-04-09] MEDS ORDERED: fentaNYL (PF) 50 MCG/ML 2 ML AMP IVP ONE (09:18)
[2019-04-09] MEDS ORDERED: MIDAZOLAM 2 MG/2 ML VIAL IVP ONE (09:18)
--- NOTE | 2019-04-09 09:36 | P.ANPRN ---
Procedure Note - Anesthesia - Nerve Block Performed Bilateral Transversus Abdominis Single Time Out Performed: Yes Date of Procedure: 04/09/19 Procedure Start Time: Procedure Stop Time: : Location of Patient Procedure: PreOp Indication: Acute Post-Operative Pain, Requested by Surgeon Sedation Type: Sedate with meaningful contact maintained Preparation: Sterile Prep Position: Supine Catheter: None Needle Types: Pajunk Needle Gauge: 21 Ultrasound used to visualize needle placement: Yes Ultrasound used to observe medication spread: Yes Injectate: 0.5% Ropivacaine (see comment for volume) (20ml +2mg decadron per side) Blood Aspirated: No Pain Paresthesia on Injection Noted: No Resistance on Injection: Normal Image Stored and Saved: Yes Events: Uneventful and Well Tolerated
[2019-04-09] MEDS ORDERED: DEXMEDETOMIDINE IV SCH (09:47)
[2019-04-09] MEDS ORDERED: NACL IV SCH (09:47)
[2019-04-09] MEDS ORDERED: DEXMEDETOMIDINE/0.9% NACL(PMX) 400 MCG in EMPTY BAG 1 BAG IV ONE (10:00)
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
[2019-04-09] MEDS ORDERED: BUPIVACAINE (PF) 0.25% 30 ML VIAL SQ ONE ×2 (11:08→11:41)
[2019-04-09] MEDS ORDERED: PROPOFOL 10 MG/ML 20 ML VIAL IV ONE (11:15)
[2019-04-09] MEDS ORDERED: LIDOCAINE 1% INJ 10MG/ML (20 ML MDV) ONE (11:15)
[2019-04-09] MEDS ORDERED: ROCURONIUM BROMIDE 10 MG/ML 10 ML VIAL IV ONE (11:15)
[2019-04-09] MEDS ORDERED: DEXAMETHASONE SOD PHOSPHATE 4 MG/ML 1 ML VIAL ONE (11:15)
[2019-04-09] MEDS ORDERED: fentaNYL (PF) 50 MCG/ML 2 ML AMP ONE (11:15)
[2019-04-09] MEDS ORDERED: GLYCOPYRROLATE 0.2 MG/ML 2 ML VIAL ONE (11:15)
[2019-04-09] MEDS ORDERED: MIDAZOLAM 2 MG/2 ML VIAL ONE (11:15)
[2019-04-09] MEDS ORDERED: DEXMEDETOMIDINE/0.9% NACL(PMX) 400 MCG/100 ML IV ONE (11:15)
[2019-04-09] MEDS ORDERED: ROPIVACAINE 5 MG/ML 30 ML VIAL ONE (11:15)
[2019-04-09] MEDS ORDERED: NEOSTIGMINE 1 MG/ML 10 ML VIAL ONE (11:15)
[2019-04-09] MEDS ORDERED: LACTATED RINGERS 1,000 ML IV ONE ×2 (11:56→12:23)
--- NOTE | 2019-04-09 12:14 | P.OP ---
Date of Procedure: 04/09/19 Preoperative Diagnosis: Left inguinal hernia Postoperative Diagnosis: Left inguinal hernia Procedure(s) Performed: Laparoscopic robotic system repair of left inguinal hernia Anesthesia: MAR Surgeon: Brad Moreno Estimated Blood Loss (ml): 5 Pathology: none sent Condition: stable Disposition: PACU Description of Procedure: MThe patient's placed on the operating table in the supine position. The patient received general anesthesia. The patient's abdomen was prepped and draped in usual sterile fashion. The skin was anesthetized 1% local Xylocaine at the incision sites. Using an 11 blade a skin incision was made at the umbilicus. The fascia was grasped with a Jennifer and then the peritoneal cavity was entered with the Veress needle. Position of the Veress needle was confirmed with a positive drop test. After adequate insufflation a 5 mm trocar was placed into the peritoneal cavity. The Laparoscope was placed the peritoneal cavity. And a robotic 8 mm trocar was placed in the right lateral position and then another 8 mm robotic trochars placed in the left lateral position. The original 5 mm trocar was exchanged for a 12 mm trocar. The patient was placed in reverse Trendelenburg and then the patient was docked to the robot. Next the peritoneum over top of the hernia was incised and then using blunt and sharp dissection and electrocautery the hernia sac was dissected free from the floor of the inguinal canal. The hernia sac was completely reduced into the peritoneal cavity. And then using the Pro sales agent protective service mesh the hernia was repaired. The peritoneum was then sutured with 20V lock suture. The patient was then undocked the robot. The needle was withdrawn from the peritoneal cavity. The umbilical trocar site was closed with 0 Ethibond suture. The skin was closed interrupted 3-0 Monocryl suture. Dermabond dressing was applied. Patient was sent to recovery in stable condition.
[2019-04-09 12:29] VITALS: TEMP 97
[2019-04-09] MEDS: HYDROmorphone 0.5 MG/0.5 ML SYRINGE IVP PRN ×2 (12:42→12:47)
[2019-04-09 13:43] VITALS: RESP 18
[2019-04-09 14:04] VITALS: BP 125/87; PULSE 78
== END 2019-04-09 14:30 | disposition home or self-care (01) ==
LOC: OR 08:00
PROVIDERS: ATTEND Surgery
DX: K40.90 Unilateral inguinal hernia, without obstruction or gangrene, not specified as recurrent (principal); J44.9 Chronic obstructive pulmonary disease, unspecified; K75.89 Other specified inflammatory liver diseases; F90.9 Attention-deficit hyperactivity disorder, unspecified type; F41.9 Anxiety disorder, unspecified; F32.9 Major depressive disorder, single episode, unspecified; F43.10 Post-traumatic stress disorder, unspecified; J98.6 Disorders of diaphragm; G56.91 Unspecified mononeuropathy of right upper limb; M51.36 Other intervertebral disc degeneration, lumbar region; E66.9 Obesity, unspecified; Z68.33 Body mass index [BMI] 33.0-33.9, adult; F14.11 Cocaine abuse, in remission; Z82.49 Family history of ischemic heart disease and other diseases of the circulatory system; Z80.1 Family history of malignant neoplasm of trachea, bronchus and lung; Z84.89 Family history of other specified conditions; Z87.891 Personal history of nicotine dependence; Z79.899 Other long term (current) drug therapy; Z88.5 Allergy status to narcotic agent
CPT/HCPCS: 49650; S2900; 64488

== ENCOUNTER 2019-07-04 12:04 | Observation (INO) | payer OTHER ==
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
[2019-07-04 12:39] LABS: Basophils # (A) 0.1 k/uL (0-0.2); Basophils % (A) 1 %; Eosinophils # (A) 0.2 k/uL (0-0.7); Eosinophils % (A) 2 %; HCT 46.6 % (39.0-53.0); HGB 15.1 gm/dL (13.0-17.5); Lymphocytes # (A) 2.4 k/uL (1.0-4.8); Lymphocytes % (A) 26 %; MCH 30.8 pg (25.0-35.0); MCHC 32.4 g/dL (31.0-37.0); MCV 95.3 fL (80.0-100.0); Mean Platelet Volume 7.3; Monocytes # (A) 0.6 k/uL (0-1.0); Monocytes % (A) 6 %; Neutrophils # (A) 5.9 k/uL (1.3-7.7); Neutrophils % (A) 63 %; Platelet Count 278 k/uL (150-450); RBC 4.89 m/uL (4.30-5.90); WBC 9.4 k/uL (3.8-10.6)
[2019-07-04 12:46] LABS: INR 0.9 (<1.2); Partial Thromboplastin Time 24.4 sec (22.0-30.0); Prothrombin Time 9.5 sec (9.0-12.0)
[2019-07-04 12:51] LABS: ALT 35 U/L (4-49); AST 26 U/L (17-59); African American GFR (CKD) >90 (>60 ml/min/1.73 sqM); Albumin 4.1 g/dL (3.5-5.0); Alkaline Phosphatase 94 U/L (38-126); Anion Gap 4 mmol/L; Blood Urea Nitrogen 28 mg/dL (9-20); Calcium 9.2 mg/dL (8.4-10.2); Carbon Dioxide 33 mmol/L (22-30); Chloride 103 mmol/L (98-107); Glucose 102 mg/dL (74-99); Magnesium 2.1 mg/dL (1.6-2.3); Non-African American GFR(CKD) >90 (>60 ml/min/1.73 sqM); Potassium 4.4 mmol/L (3.5-5.1); Sodium 140 mmol/L (137-145); Total Bilirubin 0.5 mg/dL (0.2-1.3); Total Protein 7.3 g/dL (6.3-8.2)
--- NOTE | 2019-07-04 12:55 | XR ---
EXAMINATION TYPE: XR chest 2V DATE OF EXAM: 07/04/2019 COMPARISON: 04/10/2018 HISTORY: 38-year-old male with chest pain TECHNIQUE: PA and lateral views FINDINGS: The cardiomediastinal silhouette, aorta, and pulmonary vasculature are within normal limits. Some vol ume loss of the right base with asymmetric elevation right hemidiaphragm. Perihilar peribronchial den sities. No consolidation or pleural effusion. IMPRESSION: Perihilar and peribronchial densities could reflect bronchitis or asthma. Some volume loss and atelec tasis at the right base. Otherwise, no definite acute process.
--- NOTE | 2019-07-04 13:57 | US ---
EXAMINATION TYPE: US gallbladder DATE OF EXAM: 07/04/2019 COMPARISON: CT abdomen pelvis dated 03/20/2019 CLINICAL HISTORY: Abdominal pain. EXAM MEASUREMENTS: Liver Length: 17.1 cm Gallbladder Wall: 0.3 cm CBD: 0.2 cm Right Kidney: 11.1 x 4.5 x 4.5 cm Morbidly obese patient with severe overlying bowel gas. Pancreas: Obscured by bowel gas Liver: Upper limits of normal size. There is increased echogenicity of the hepatic parenchyma with di minished visualization of the portal triads most commonly relating to hepatic steatosis and limiting evaluation for underlying hepatic masses. Gallbladder: wnl, limited visualization Evidence for sonographic Kaminski's sign: no CBD: limited visualization Right Kidney: inferior pole obscured by bowel gas, very limited visualization IMPRESSION: 1. No sonographic evidence of acute cholecystitis or cholelithiasis. 2. Sonographic findings most commonly related to hepatic steatosis. Correlate with liver function fer ts. 3. Obscuration of the inferior pole of the right kidney and pancreas by overlying bowel gas and patie nt body habitus.
[2019-07-04] MEDS ORDERED: ASPIRIN 325 MG TAB PO STA (14:37)
[2019-07-04] MEDS ORDERED: FUROSEMIDE 10 MG/ML 2 ML VIAL IV STA (14:37)
[2019-07-04] MEDS ORDERED: NALOXONE 0.4 MG/ML 1 ML VIAL IV PRN (14:40)
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
[2019-07-04] MEDS ORDERED: NICOTINE 7MG/24HR PATCH TRANSDERM STA (15:01)
--- NOTE | 2019-07-04 15:43 | US ---
EXAMINATION TYPE: US venous doppler duplex LE BI DATE OF EXAM: 07/04/2019 2:59 PM COMPARISON: US 04/08/2018 CLINICAL HISTORY: Rule out DVT. Swelling SIDE PERFORMED: Bilateral TECHNIQUE: The lower extremity deep venous system is examined utilizing real time linear array sonog dustin with graded compression, doppler sonography and color-flow sonography. VESSELS IMAGED: External Iliac Vein (EIV) Common Femoral Vein Deep Femoral Vein Greater Saphenous Vein * Femoral Vein Popliteal Vein Small Saphenous Vein * Proximal Calf Veins (* superficial vessels) Grayscale, color doppler, spectral doppler imaging performed of the deep veins of the lower extremiti es. There is normal flow, compressibility, vascular waveforms. Right Leg: Negative for DVT Left Leg: Negative for DVT IMPRESSION: No sonographic evidence of deep venous thrombosis within either the visualized bilateral lower extremities.
[2019-07-04 16:08] VITALS: BP 128/69; PULSE 55; RESP 18; TEMP 97.5
[2019-07-04] MEDS ORDERED: DOXYCYCLINE 100 MG CAP PO SCH (16:30)
[2019-07-04] MEDS ORDERED: FAMOTIDINE 20 MG/2 ML VIAL IV SCH (21:00)
[2019-07-04] MEDS ORDERED: HEPARIN SODIUM,PORCINE 5,000 UNIT/ML 1 ML VIAL SQ SCH (21:00)
[2019-07-04] MEDS ORDERED: OXcarbazepine 300 MG TAB PO SCH (21:00)
[2019-07-05] MEDS ORDERED: FUROSEMIDE 10 MG/ML 2 ML VIAL IV SCH
[2019-07-05] MEDS ORDERED: ARIPiprazole 5 MG TAB PO SCH (09:00)
[2019-07-05] MEDS ORDERED: ESCITALOPRAM 10 MG TAB PO SCH (09:00)
--- NOTE | 2019-07-05 11:50 | ECHOF ---
Referral Reason:Peripheral edema, chest pain MEASUREMENTS -------- HEIGHT: 193.0 cm WEIGHT: 122.5 kg BP: 151/111 RVIDd: 3.4 cm (< 3.3) IVSd: 1.2 cm (0.6 - 1.1) LVIDd: 5.4 cm (3.9 - 5.3) LVPWd: 1.2 cm (0.6 - 1.1) IVSs: 1.5 cm LVIDs: 3.6 cm LVPWs: 2.0 cm LAESV Index (A-L): 25.81 ml/m IVSd: 1.4 cm (0.6 - 1.1) LVIDd: 5.7 cm (3.9 - 5.3) LVPWd: 1.4 cm (0.6 - 1.1) IVSs: 1.4 cm LVIDs: 4.1 cm LVPWs: 1.7 cm EDV(Teich): 157 ml ESV(Teich): 76 ml EF(Teich): 52 % %FS: 27 % SV(Teich): 82 ml Ao Diam: 2.8 cm (2.0 - 3.7) AV Cusp: 1.9 cm (1.5 - 2.6) LA Diam: 4.0 cm (2.7 - 3.8) MV EXCURSION: 22.560 mm (> 18.000) MV EF SLOPE: 130 mm/s (70 - 150) EPSS: 0.6 cm MV E Bethel: 0.76 m/s MV DecT: 247 ms MV A Bethel: 0.60 m/s MV E/A Ratio: 1.27 RAP: 5.00 mmHg RVSP: 20.73 mmHg FINDINGS -------- Sinus rhythm. This was a technically difficult study with suboptimal apical views. The left ventricular size is normal. There is mild concentric left ventricular hypertrophy. Overa ll left ventricular systolic function is mildly impaired with, an EF between 45 - 50 %. The right ventricle is mildly enlarged. Normal LA size by volume 22+/-6 ml/m2. The right atrium is normal in size. Interatrial and interventricular septum intact. There is no evidence of aortic regurgitation. There is no evidence of aortic stenosis. There is trace mitral regurgitation. Mild tricuspid regurgitation present. There is no evidence of pulmonary hypertension. The right v entricular systolic pressure, as measured by Doppler, is 20.73mmHg. There is no pulmonic regurgitation present. The aortic root size is normal. IVC Not well visulized. There is no pericardial effusion. CONCLUSIONS -------- 1. Sinus rhythm. 2. This was a technically difficult study with suboptimal apical views. 3. The left ventricular size is normal. 4. There is mild concentric left ventricular hypertrophy. 5. Overall left ventricular systolic function is mildly impaired with, an EF between 45 - 50 %. 6. The right ventricle is mildly enlarged. 7. Normal LA size by volume 22+/-6 ml/m2. 8. The right atrium is normal in size. 9. Interatrial and interventricular septum intact. 10. There is no evidence of aortic regurgitation. 11. There is no evidence of aortic stenosis. 12. There is trace mitral regurgitation. 13. Mild tricuspid regurgitation present. 14. There is no evidence of pulmonary hypertension. 15. The right ventricular systolic pressure, as measured by Doppler, is 20.73mmHg. 16. There is no pulmonic regurgitation present. 17. The aortic root size is normal. 18. IVC Not well visulized. 19. There is no pericardial effusion. LIFT MECHANIC: Paula Hodges RDCS
== END 2019-07-04 16:32 | disposition left against medical advice (07) ==
LOC: EC 12:04 → 1SOBS 14:40
PROVIDERS: ADMIT Internal Medicine; ATTEND Internal Medicine
DX: R07.89 Other chest pain (principal); R60.0 Localized edema; R91.8 Other nonspecific abnormal finding of lung field; J44.9 Chronic obstructive pulmonary disease, unspecified; I10 Essential (primary) hypertension; K74.69 Other cirrhosis of liver; B19.20 Unspecified viral hepatitis C without hepatic coma; Z53.29 Procedure and treatment not carried out because of patient's decision for other reasons; I08.1 Rheumatic disorders of both mitral and tricuspid valves; M51.36 Other intervertebral disc degeneration, lumbar region; Z80.1 Family history of malignant neoplasm of trachea, bronchus and lung; Z82.49 Family history of ischemic heart disease and other diseases of the circulatory system; Z84.89 Family history of other specified conditions; Z87.891 Personal history of nicotine dependence; Z79.891 Long term (current) use of opiate analgesic; Z79.899 Other long term (current) drug therapy; Z88.6 Allergy status to analgesic agent; F90.9 Attention-deficit hyperactivity disorder, unspecified type; F41.9 Anxiety disorder, unspecified; F32.9 Major depressive disorder, single episode, unspecified; F43.10 Post-traumatic stress disorder, unspecified; Z90.49 Acquired absence of other specified parts of digestive tract
CPT/HCPCS: 96374; 99285; 36415; 93005; 83880; 80053; 83690; 83735; 84484; 85025; 85610; 85730; 87502; 71046; 76705; 93970; G0378; C8929; S4990; J1940; Q9950; 93306

== ENCOUNTER 2019-09-18 00:15 | Emergency (ER) | payer OTHER ==
[2019-09-18 00:25] VITALS: RESP 18
--- NOTE | 2019-09-18 01:33 | XR ---
EXAMINATION TYPE: XR chest 1V DATE OF EXAM: 09/18/2019 COMPARISON: 07/04/2019 HISTORY: Cough TECHNIQUE: FINDINGS: There is elevated right diaphragm. There is some atelectasis right lung base. There is no h eart failure. Heart size is fairly normal. There are chest leads. IMPRESSION: There is atelectasis at the right lung base that is worse than old exam and could relate to diaphragm paralysis.
[2019-09-18 01:44] LABS: Basophils # (A) 0.1 k/uL (0-0.2); Basophils % (A) 1 %; Eosinophils # (A) 0.2 k/uL (0-0.7); Eosinophils % (A) 2 %; HCT 43.5 % (39.0-53.0); HGB 14.2 gm/dL (13.0-17.5); Lymphocytes # (A) 2.5 k/uL (1.0-4.8); Lymphocytes % (A) 30 %; MCH 30.5 pg (25.0-35.0); MCHC 32.8 g/dL (31.0-37.0); MCV 92.9 fL (80.0-100.0); Mean Platelet Volume 7.4; Monocytes # (A) 0.6 k/uL (0-1.0); Monocytes % (A) 8 %; Neutrophils # (A) 4.7 k/uL (1.3-7.7); Neutrophils % (A) 56 %; Platelet Count 208 k/uL (150-450); RBC 4.68 m/uL (4.30-5.90); RDW 12.7 % (11.5-15.5); WBC 8.4 k/uL (3.8-10.6)
[2019-09-18 01:54] LABS: ALT 29 U/L (4-49); AST 28 U/L (17-59); African American GFR (CKD) >90 (>60 ml/min/1.73 sqM); Alkaline Phosphatase 71 U/L (38-126); Anion Gap 4 mmol/L; Blood Urea Nitrogen 21 mg/dL (9-20); Calcium 9.1 mg/dL (8.4-10.2); Carbon Dioxide 29 mmol/L (22-30); Chloride 104 mmol/L (98-107); Glucose 118 mg/dL (74-99); Non-African American GFR(CKD) >90 (>60 ml/min/1.73 sqM); Potassium 4.4 mmol/L (3.5-5.1); Sodium 137 mmol/L (137-145); Total Bilirubin 0.3 mg/dL (0.2-1.3); Total Protein 7.1 g/dL (6.3-8.2)
[2019-09-18 02:04] LABS: INR 0.9 (<1.2); Partial Thromboplastin Time 25.5 sec (22.0-30.0); Prothrombin Time 9.6 sec (9.0-12.0)
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
[2019-09-18 02:40] VITALS: PULSE 71
[2019-09-18 03:34] VITALS: BP 133/92; TEMP 98.2
== END 2019-09-18 03:34 | disposition home or self-care (01) ==
LOC: EC 00:15
DX: R06.02 Shortness of breath (principal); R05 Cough; M79.89 Other specified soft tissue disorders; I10 Essential (primary) hypertension; F41.9 Anxiety disorder, unspecified; J44.9 Chronic obstructive pulmonary disease, unspecified; F31.9 Bipolar disorder, unspecified; Z79.899 Other long term (current) drug therapy; Z88.5 Allergy status to narcotic agent; Z87.891 Personal history of nicotine dependence
CPT/HCPCS: 36415; 71045; 80053; 83605; 83880; 84484; 85025; 85610; 85730; 93005; 99285

== ENCOUNTER 2019-10-11 19:18 | Emergency (ER) | payer OTHER ==
[2019-10-11 19:26] VITALS: TEMP 97.5
--- NOTE | 2019-10-11 20:12 | XR ---
EXAMINATION TYPE: XR chest 1V portable DATE OF EXAM: 10/11/2019 COMPARISON: 09/18/2019 HISTORY: Lateral lower extremity swelling for 2 days. History of COPD. TECHNIQUE: Single frontal view of the chest is obtained. FINDINGS: Chronic right hemidiaphragm elevation is seen. No new focal consolidation, pleural effusio n or pneumothorax. Cardiomediastinal silhouette is mildly enlarged. No acute osseous process. IMPRESSION: Cardiomegaly as seen on the prior and chronic right hemidiaphragm elevation. No acute pr ocess.
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
[2019-10-11 20:58] VITALS: BP 126/86; PULSE 66; RESP 18
== END 2019-10-11 20:59 | disposition home or self-care (01) ==
LOC: EC 19:18
DX: R60.0 Localized edema (principal); I10 Essential (primary) hypertension; F90.9 Attention-deficit hyperactivity disorder, unspecified type; F41.9 Anxiety disorder, unspecified; F32.9 Major depressive disorder, single episode, unspecified; F17.200 Nicotine dependence, unspecified, uncomplicated; Z79.899 Other long term (current) drug therapy; Z88.5 Allergy status to narcotic agent; Z88.6 Allergy status to analgesic agent
CPT/HCPCS: 71045; 93005; 99283

== ENCOUNTER 2020-01-23 08:10 | Day surgery (SDC) | payer OTHER ==
[~2020-01-23 08:10] MED LIST changes: +ACETAMINOPHEN TAB 500 MG TAB PO ONE; -DEXAMETHASONE SOD PHOSPHATE 10 MG/ML 1 ML VIAL IV ONE; -LACTATED RINGERS 1,000 ML IV SCH; -LIDOCAINE 1% 20 ML VIAL (10MG/ML) FOR IV START INTRADERMA PRN; -ONDANSETRON 4 MG/2 ML VIAL IVP ONE; -fentaNYL (PF) 50 MCG/ML 2 ML AMP IV PRN
[2020-01-23] MEDS ORDERED: ACETAMINOPHEN TAB 500 MG TAB ONE (08:52)
[2020-01-23] MEDS ORDERED: HEPARIN SODIUM,PORCINE 5,000 UNIT/ML 1 ML VIAL ONE (08:52)
[2020-01-23] MEDS ORDERED: ONDANSETRON 4 MG/2 ML VIAL ONE (08:52)
[2020-01-23] MEDS ORDERED: LACTATED RINGERS 1,000 ML IV ONE (08:58)
[2020-01-23] MEDS ORDERED: DEXAMETHASONE SOD PHOSPHATE 10 MG/ML 1 ML VIAL IV ONE (08:58)
[2020-01-23] MEDS ORDERED: ONDANSETRON 4 MG/2 ML VIAL IVP ONE (08:58)
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
[2020-01-23] MEDS ORDERED: NEOSTIGMINE 1 MG/ML 10 ML VIAL ONE (10:24)
[2020-01-23] MEDS ORDERED: PROPOFOL 10 MG/ML 20 ML VIAL IV ONE (10:24)
[2020-01-23] MEDS ORDERED: SUCCINYLCHOLINE CHLORIDE VIAL 200 MG/10 ML VIAL IV ONE (10:24)
[2020-01-23] MEDS ORDERED: KETAMINE 10 MG/ML 20 ML VIAL ONE (10:24)
[2020-01-23] MEDS ORDERED: GLYCOPYRROLATE 0.2 MG/ML 2 ML VIAL ONE (10:24)
[2020-01-23] MEDS ORDERED: MIDAZOLAM 2 MG/2 ML VIAL ONE (10:24)
[2020-01-23] MEDS ORDERED: LIDOCAINE 1% INJ 10MG/ML (20 ML MDV) ONE (10:24)
[2020-01-23] MEDS ORDERED: fentaNYL (PF) 50 MCG/ML 2 ML AMP ONE (10:24)
[2020-01-23] MEDS ORDERED: ROCURONIUM BROMIDE 10 MG/ML 5 ML VIAL IV ONE (10:24)
[2020-01-23] MEDS ORDERED: BUPIVACAINE (PF) 0.25% 30 ML VIAL SQ ONE (10:29)
--- NOTE | 2020-01-23 11:12 | P.OP ---
Date of Procedure: 01/23/20 Preoperative Diagnosis: Incarcerated umbilical hernia Postoperative Diagnosis: Incarcerated umbilical hernia Procedure(s) Performed: Laparoscopic robotic-assisted repair of incarcerated umbilical hernia Partial omentectomy Anesthesia: MAR Surgeon: Brad Moreno Estimated Blood Loss (ml): 5 Pathology: other (Omentum) Condition: stable Disposition: PACU Description of Procedure: The patient was placed on the operating table in the supine position. He received general anesthesia. His abdomen was prepped and draped usual fashion. Using a 5 mm optical trocar under direct visualization the peritoneal cavity was entered in the left upper quadrant. The abdomen was then insufflated. The laparoscope was placed back into the perineal cavity. Next a 8 mm robotic trocar was placed in the left lower quadrant and a 12 mm robotic trocar was placed in the left lateral position. The original 5 mm trocar was exchanged for a 8 mm robotic trocar. The patient's placed in the left side up position. And the patient was undocked the robot. The umbilical hernia was visualized. Using hook cautery the peritoneum over the umbilical hernia was excised. Incarcerated omentum was dissected free and transected and sent to pathology. The fascial opening was repaired using 0V LOC suture. Next a piece of 11 cm round ventral light ST mesh was placed into the. Cavity and secured with 2 OV lock suture. The patient was undocked the robot. The needles were retrieved. The fascia of the 12 mm trocar site was closed with 0 Ethibond suture. Skin was closed interrupted 3-0 Monocryl suture. Dermabond dressings was applied. Patient top procedure well and was sent to recovery room stable condition.
[2020-01-23 11:26] VITALS: TEMP 97
[2020-01-23] MEDS: HYDROmorphone 1 MG/ML 1 ML SYRINGE IVP ONE ×6 (11:28→11:50)
[2020-01-23] MEDS: fentaNYL (PF) 50 MCG/ML 2 ML AMP IV ONE ×2 (11:55→12:00)
[2020-01-23] MEDS: fentaNYL (PF) 50 MCG/ML 2 ML AMP IVP ONE ×2 (12:10→12:25)
[2020-01-23 12:19] VITALS: RESP 18
[2020-01-23 12:57] VITALS: PULSE 75
[2020-01-23 13:11] VITALS: BP 115/78
== END 2020-01-23 13:39 | disposition home or self-care (01) ==
LOC: OR 08:10
PROVIDERS: ATTEND Surgery
DX: K42.0 Umbilical hernia with obstruction, without gangrene (principal); I10 Essential (primary) hypertension; J44.9 Chronic obstructive pulmonary disease, unspecified; M54.5 Low back pain; B18.2 Chronic viral hepatitis C; J98.6 Disorders of diaphragm; F90.9 Attention-deficit hyperactivity disorder, unspecified type; F41.9 Anxiety disorder, unspecified; F32.9 Major depressive disorder, single episode, unspecified; F43.10 Post-traumatic stress disorder, unspecified; Z90.49 Acquired absence of other specified parts of digestive tract; Z87.19 Personal history of other diseases of the digestive system; Z98.890 Other specified postprocedural states; Z90.89 Acquired absence of other organs; Z82.49 Family history of ischemic heart disease and other diseases of the circulatory system; Z80.1 Family history of malignant neoplasm of trachea, bronchus and lung; Z88.5 Allergy status to narcotic agent; Z79.891 Long term (current) use of opiate analgesic; Z87.891 Personal history of nicotine dependence; Z79.899 Other long term (current) drug therapy
CPT/HCPCS: 88305; 49653; C1781; J2250; J0330; J1100; J2710; J0690; J2405; J2001; J3010; J1170; J2704

== ENCOUNTER 2020-07-21 23:05 | Observation (INO) | payer OTHER ==
[2020-07-21] MEDS ORDERED: HYDROcodone/APAP 5-325MG 1 EACH TAB PO STA (23:32)
[2020-07-22] MEDS ORDERED: HYDROmorphone 1 MG/ML 1 ML SYRINGE IM STA (00:05)
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
[2020-07-22] MEDS ORDERED: SODIUM CHLORIDE 0.9% 1,000 ML IV ONE (00:43)
[2020-07-22] MEDS: SODIUM CHLORIDE 0.9% 1,000 ML IV STA ×2 (00:48→08:36)
--- NOTE | 2020-07-22 01:23 | US ---
EXAM: US penile shaft CLINICAL HISTORY: CLINICAL fracture. Penile fracture per order. Road Conductor notes: Very limited exam scanned to visualize any sign of fracture. Unable to definitely visualize any abnormalities by limited ultrasound exam at this time. TECHNIQUE: Grayscale evaluation of penile shaft. COMPARISON: No relevant prior studies available. FINDINGS: Corpus cavernosum and spongiosum appear intact throughout the visualized penile shaft. No hyperreninemia or evidence of penile fracture. Urethra is poorly evaluated. IMPRESSION: No penile fracture identified
[2020-07-22 01:35] LABS: Basophils # (A) 0.1 k/uL (0-0.2); Basophils % (A) 1 %; Eosinophils # (A) 0.1 k/uL (0-0.7); Eosinophils % (A) 1 %; HCT 46.6 % (39.0-53.0); HGB 15.8 gm/dL (13.0-17.5); Hypochromasia Moderate; Lymphocytes # (A) 3.2 k/uL (1.0-4.8); Lymphocytes % (A) 27 %; MCH 32.1 pg (25.0-35.0); MCHC 33.9 g/dL (31.0-37.0); MCV 94.9 fL (80.0-100.0); Mean Platelet Volume 6.9; Monocytes # (A) 0.9 k/uL (0-1.0); Monocytes % (A) 8 %; Neutrophils # (A) 7.4 k/uL (1.3-7.7); Neutrophils % (A) 62 %; Platelet Count 261 k/uL (150-450); Poikilocytosis Slight; RBC 4.91 m/uL (4.30-5.90); RDW 15.7 % (11.5-15.5); WBC 11.9 k/uL (3.8-10.6)
[2020-07-22 01:45] LABS: Partial Thromboplastin Time 25.3 sec (22.0-30.0); Prothrombin Time 10.6 sec (9.0-12.0)
[2020-07-22 01:53] LABS: ALT 52 U/L (4-49); AST 36 U/L (17-59); African American GFR (CKD) >90 (>60 ml/min/1.73 sqM); Albumin 4.6 g/dL (3.5-5.0); Alkaline Phosphatase 98 U/L (38-126); Anion Gap 8 mmol/L; Blood Urea Nitrogen 25 mg/dL (9-20); Calcium 9.6 mg/dL (8.4-10.2); Carbon Dioxide 31 mmol/L (22-30); Chloride 101 mmol/L (98-107); Glucose 103 mg/dL (74-99); Magnesium 2.2 mg/dL (1.6-2.3); Non-African American GFR(CKD) 90 (>60 ml/min/1.73 sqM); Phosphorus 4.4 mg/dL (2.5-4.5); Potassium 4.6 mmol/L (3.5-5.1); Sodium 140 mmol/L (137-145); Total Bilirubin 0.5 mg/dL (0.2-1.3); Total Protein 7.8 g/dL (6.3-8.2)
[2020-07-22] MEDS ORDERED: HYDROmorphone 0.5 MG/0.5 ML SYRINGE IVP PRN (03:38)
[2020-07-22 08:13] VITALS: BP 109/69; PULSE 63; RESP 16; TEMP 97.8
[2020-07-22] MEDS ORDERED: Acetaminophen-Codeine 300-30mg TAB PO PRN (08:53)
[2020-07-22] MEDS ORDERED: NICOTINE 14MG/24HR PATCH TRANSDERM SCH (09:00)
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
--- NOTE | 2020-07-22 15:08 | P.DS ---
Providers Date of admission: 07/22/20 00:44 Attending physician: Marcial Garcia MD Primary care physician: [facility] Course: 39 yo male admitted to the hosptial to role out penile fracture. Physical examination and history is not consistent with penile fracture. He underwent scrotal U/S that was negative for penile fracture. He was discharged home in stable condition. He is advised to follow up in clinic in 2 weeks Patient Condition at Discharge: Good Plan - Discharge Summary Discharge Rx Participant: No New Discharge Prescriptions: New Acetaminophen-Codeine 300-30mg [Tylenol w/codeine #3] 1 tab PO Q6H PRN 3 Days #12 tablet PRN Reason: Pain No Action Buprenorphine HCl/Naloxone HCl [Suboxone 8 mg-2 mg Sl Film] 1 film SL TID Lisdexamfetamine Dimesylate [Vyvanse] 50 mg PO QAM OXcarbazepine [Trileptal] 600 mg PO BID Naproxen 500 mg PO DAILY Escitalopram [Lexapro] 5 mg PO DAILY Escitalopram [Lexapro] 10 mg PO DAILY cloNIDine HCL [Catapres] 0.1 mg PO DAILY ARIPiprazole [Abilify] 15 mg PO DAILY Discharge Medication List Buprenorphine HCl/Naloxone HCl [Suboxone 8 mg-2 mg Sl Film] 1 film SL TID 04/05/19 [History] ARIPiprazole [Abilify] 15 mg PO DAILY 07/22/20 [History] Acetaminophen-Codeine 300-30mg [Tylenol w/codeine #3] 1 tab PO Q6H PRN 3 Days #12 tablet 07/22/20 [Rx] Escitalopram [Lexapro] 5 mg PO DAILY 07/22/20 [History] Escitalopram [Lexapro] 10 mg PO DAILY 07/22/20 [History] Lisdexamfetamine Dimesylate [Vyvanse] 50 mg PO QAM 07/22/20 [History] Naproxen 500 mg PO DAILY 07/22/20 [History] OXcarbazepine [Trileptal] 600 mg PO BID 07/22/20 [History] cloNIDine HCL [Catapres] 0.1 mg PO DAILY 07/22/20 [History] Follow up Appointment(s)/Referral(s): Crispin Velasquez MD [Primary Care Provider] - 07/28/20 1:30 pm Marcial Garcia MD [STAFF PHYSICIAN] - 08/10/20 9:00 am Activity/Diet/Wound Care/Special Instructions: No sex or masturbation for 4 weeks
== END 2020-07-22 11:45 ==
LOC: EC 23:05 → 6NMEDSUR 07-22 00:44
PROVIDERS: ADMIT Urology; ATTEND Urology
DX: S39.848A Other specified injuries of external genitals, initial encounter (principal); I10 Essential (primary) hypertension; J44.9 Chronic obstructive pulmonary disease, unspecified; F11.20 Opioid dependence, uncomplicated; B18.2 Chronic viral hepatitis C; F32.9 Major depressive disorder, single episode, unspecified; F43.10 Post-traumatic stress disorder, unspecified; F90.9 Attention-deficit hyperactivity disorder, unspecified type; F41.9 Anxiety disorder, unspecified; J98.6 Disorders of diaphragm; F17.210 Nicotine dependence, cigarettes, uncomplicated; X58.XXXA Exposure to other specified factors, initial encounter; Z79.891 Long term (current) use of opiate analgesic; Z79.899 Other long term (current) drug therapy; Z88.5 Allergy status to narcotic agent; Z90.49 Acquired absence of other specified parts of digestive tract; Z98.890 Other specified postprocedural states; Z87.898 Personal history of other specified conditions; Z82.49 Family history of ischemic heart disease and other diseases of the circulatory system; Z80.1 Family history of malignant neoplasm of trachea, bronchus and lung
CPT/HCPCS: 96376; 96361; 96374; 99285; 80053; 83735; 84100; 85025; 85610; 85730; 87635; 76882; G0378; S4990; J1170 ×2

== ENCOUNTER 2021-01-24 15:57 | Emergency (ER) | payer OTHER ==
[2021-01-24 16:02] VITALS: TEMP 97.7
[2021-01-24] MEDS ORDERED: ONDANSETRON 4 MG/2 ML VIAL IVP STA (16:13)
[2021-01-24] MEDS ORDERED: SODIUM CHLORIDE 0.9% 1,000 ML IV STA (16:13)
[2021-01-24] MEDS ORDERED: MORPHINE SULFATE 4 MG/ML SYRINGE IV STA (16:13)
[2021-01-24 16:55] LABS: Basophils # (A) 0.1 k/uL (0-0.2); Basophils % (A) 1 %; Eosinophils # (A) 0.2 k/uL (0-0.7); Eosinophils % (A) 2 %; HCT 50.8 % (39.0-53.0); HGB 16.7 gm/dL (13.0-17.5); Lymphocytes # (A) 3.1 k/uL (1.0-4.8); Lymphocytes % (A) 29 %; MCH 31.8 pg (25.0-35.0); MCV 96.4 fL (80.0-100.0); Mean Platelet Volume 7.5; Monocytes # (A) 0.8 k/uL (0-1.0); Monocytes % (A) 7 %; Neutrophils # (A) 6.5 k/uL (1.3-7.7); Neutrophils % (A) 59 %; Platelet Count 306 k/uL (150-450); RBC 5.27 m/uL (4.30-5.90); RDW 13.4 % (11.5-15.5); WBC 10.9 k/uL (3.8-10.6)
[2021-01-24 17:08] LABS: ALT 48 U/L (4-49); AST 31 U/L (17-59); African American GFR (CKD) >90 (>60 ml/min/1.73 sqM); Albumin 4.8 g/dL (3.5-5.0); Alkaline Phosphatase 101 U/L (38-126); Anion Gap 12 mmol/L; Blood Urea Nitrogen 22 mg/dL (9-20); Calcium 9.7 mg/dL (8.4-10.2); Carbon Dioxide 26 mmol/L (22-30); Chloride 101 mmol/L (98-107); Glucose 105 mg/dL (74-99); Non-African American GFR(CKD) >90 (>60 ml/min/1.73 sqM); Potassium 4.6 mmol/L (3.5-5.1); Sodium 139 mmol/L (137-145); Total Bilirubin 0.3 mg/dL (0.2-1.3); Total Protein 7.8 g/dL (6.3-8.2)
[2021-01-24 17:09] LABS: Appearance,Urine Clear (Clear); Bilirubin,Urine Negative (Negative); Blood,Urine Negative (Negative); Color,Urine Yellow; Glucose,Urine (UA) Negative (Negative); Ketones,Urine Negative (Negative); Leukocyte Esterase,Urine Negative (Negative); Nitrite,Urine Negative (Negative); PH, Urine 5.5 (5.0-8.0); Protein,Urine Trace (Negative); Specific Gravity,Urine 1.039 (1.001-1.035)
--- NOTE | 2021-01-24 17:54 | US ---
EXAMINATION TYPE: US groin RT DATE OF EXAM: 01/24/2021 COMPARISON: 07/22/2020 CLINICAL HISTORY: right groin tenderness. Right groin pain. No abnormalities visualized. IMPRESSION: No discrete solid or cystic mass identified. No free fluid. No evidence of a hernia.
--- NOTE | 2021-01-24 17:59 | US ---
EXAMINATION TYPE: US scrotum with doppler. Grayscale and color Doppler Duplex imaging performed of itz hardy scrotum. DATE OF EXAM: 01/24/2021 COMPARISON: NONE CLINICAL HISTORY: testicular pain. right pain EXAM MEASUREMENTS: TESTICLES: Right Testicle: 2.9 x 1.8 x 2.9 cm Left Testicle: 3.3 x 2.2 x 2.8 cm EPIDIDYMIS HEAD: Right Epididymis: .8 x .5 cm Left Epididymis: Not well visualized. Doppler performed to assess for testicular vascularity; good bilateral color flow and waveforms are s een. There is no evidence of testicular torsion. Presence of hydroceles: Multiple cystic areas with debris superior left testicle 3.9 x 2.5 x 3.1 cm vs. hydrocele. Presence of varicoceles: no IMPRESSION: There is complex left-sided hydrocele. There are internal septations. No evidence of testicular torsion or mass.
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
[2021-01-24 18:58] VITALS: BP 107/77; PULSE 83; RESP 16
== END 2021-01-24 19:11 | disposition home or self-care (01) ==
LOC: EC 15:57
DX: N43.3 Hydrocele, unspecified (principal); I10 Essential (primary) hypertension; J44.9 Chronic obstructive pulmonary disease, unspecified; F90.9 Attention-deficit hyperactivity disorder, unspecified type; F41.9 Anxiety disorder, unspecified; F32.9 Major depressive disorder, single episode, unspecified; B18.2 Chronic viral hepatitis C; F17.200 Nicotine dependence, unspecified, uncomplicated; Z90.49 Acquired absence of other specified parts of digestive tract; Z90.89 Acquired absence of other organs; Z88.6 Allergy status to analgesic agent; Z79.1 Long term (current) use of non-steroidal anti-inflammatories (NSAID)
CPT/HCPCS: 99284; 96374; 96375; 96361; 36415; 80053; 83605; 85025; 81003; 93975; 76870; 76882; J2270; J2405

== ENCOUNTER 2021-03-12 13:46 | Emergency (ER) | payer OTHER ==
[2021-03-12 14:11] VITALS: TEMP 98.3
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
[2021-03-12 14:51] VITALS: RESP 16
[2021-03-12 14:53] LABS: Basophils # (A) 0.1 k/uL (0-0.2); Basophils % (A) 1 %; Eosinophils # (A) 0.2 k/uL (0-0.7); Eosinophils % (A) 2 %; HCT 45.5 % (39.0-53.0); HGB 14.9 gm/dL (13.0-17.5); Lymphocytes # (A) 2.5 k/uL (1.0-4.8); Lymphocytes % (A) 24 %; MCH 31.5 pg (25.0-35.0); MCHC 32.7 g/dL (31.0-37.0); MCV 96.1 fL (80.0-100.0); Mean Platelet Volume 7.5; Monocytes # (A) 0.8 k/uL (0-1.0); Monocytes % (A) 7 %; Neutrophils # (A) 6.8 k/uL (1.3-7.7); Neutrophils % (A) 64 %; Platelet Count 276 k/uL (150-450); RBC 4.73 m/uL (4.30-5.90); WBC 10.5 k/uL (3.8-10.6)
[2021-03-12 14:55] LABS: Appearance,Urine Clear (Clear); Bilirubin,Urine Negative (Negative); Blood,Urine Negative (Negative); Color,Urine Yellow; Glucose,Urine (UA) Negative (Negative); Ketones,Urine Negative (Negative); Leukocyte Esterase,Urine Negative (Negative); Nitrite,Urine Negative (Negative); Protein,Urine Negative (Negative); Specific Gravity,Urine 1.021 (1.001-1.035); Urobilinogen,Urine <2.0 mg/dL (<2.0)
[2021-03-12 15:03] LABS: African American GFR (CKD) >90 (>60 ml/min/1.73 sqM); Anion Gap 6 mmol/L; Blood Urea Nitrogen 16 mg/dL (9-20); Calcium 9.3 mg/dL (8.4-10.2); Carbon Dioxide 30 mmol/L (22-30); Chloride 103 mmol/L (98-107); Glucose 103 mg/dL (74-99); Non-African American GFR(CKD) >90 (>60 ml/min/1.73 sqM); Potassium 4.4 mmol/L (3.5-5.1); Sodium 139 mmol/L (137-145)
--- NOTE | 2021-03-12 15:45 | XR ---
EXAMINATION TYPE: XR chest 1V portable DATE OF EXAM: 03/12/2021 COMPARISON: Chest x-ray October 11, 2019 HISTORY: Dyspnea. TECHNIQUE: Single AP portable frontal upright view of the chest is obtained. FINDINGS: Elevated right hemidiaphragm redemonstrated with chronic right basilar consolidation and/or atelectasis. There is no new suspicious focal air space opacity, pleural effusion, or pneumothorax seen. The cardiac silhouette size is stable and upper limits of normal. Overlying EKG leads noted o n current study. The osseous structures are intact. IMPRESSION: No acute process. No significant change from prior.
[2021-03-12 16:39] VITALS: BP 124/75; PULSE 83
== END 2021-03-12 16:49 | disposition home or self-care (01) ==
LOC: EC 13:46
DX: R60.0 Localized edema (principal); I10 Essential (primary) hypertension; J44.9 Chronic obstructive pulmonary disease, unspecified; F90.9 Attention-deficit hyperactivity disorder, unspecified type; F41.9 Anxiety disorder, unspecified; F32.9 Major depressive disorder, single episode, unspecified; F43.12 Post-traumatic stress disorder, chronic; F17.200 Nicotine dependence, unspecified, uncomplicated; Z88.1 Allergy status to other antibiotic agents; Z88.5 Allergy status to narcotic agent; Z90.49 Acquired absence of other specified parts of digestive tract; Z90.89 Acquired absence of other organs
CPT/HCPCS: 36415; 71045; 80048; 81003; 83880; 84484; 85025; 93005; 99285

== ENCOUNTER 2021-04-01 12:00 | Emergency (ER) | payer OTHER ==
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
[2021-04-01 13:55] VITALS: BP 115/81; PULSE 78; RESP 18; TEMP 97.3
[2021-04-01] MEDS ORDERED: HYDROcodone/APAP 5-325MG 1 EACH TAB PO STA (13:58)
[2021-04-01 14:00] LABS: Appearance,Urine Clear (Clear); Bilirubin,Urine Negative (Negative); Blood,Urine Negative (Negative); Color,Urine Yellow; Glucose,Urine (UA) Negative (Negative); Ketones,Urine Negative (Negative); Leukocyte Esterase,Urine Negative (Negative); Nitrite,Urine Negative (Negative); PH, Urine 5.5 (5.0-8.0); Protein,Urine Negative (Negative); Specific Gravity,Urine 1.024 (1.001-1.035); Urobilinogen,Urine <2.0 mg/dL (<2.0)
--- NOTE | 2021-04-01 14:04 | US ---
EXAMINATION TYPE: US scrotum with doppler. Grayscale and color Doppler Duplex imaging performed of itz hardy scrotum. DATE OF EXAM: 04/01/2021 COMPARISON: Recent JANUARY 24 CLINICAL HISTORY: worsening pain. Pain bilaterally EXAM MEASUREMENTS: TESTICLES: Right Testicle: 4.0x2.7x2.0 cm Left Testicle: 3.2x2.7x2.0 cm EPIDIDYMIS HEAD: Right Epididymis: 0.9 cm Left Epididymis: 2.5 cm Doppler performed to assess for testicular vascularity; good bilateral color flow and waveforms are s een. . Presence of hydroceles: Left Presence of varicoceles: No Large septated epididymal cyst with debris 3.6x2.5x2.5cm seen previously. No obviously hernia noted i n area of patients pain. Right groin noted multiple lymph nodes largest 1.4x1.4x0.9cm Symmetric blood flow to both testicles redemonstrated. Persistent large septated epididymal cyst whic h is not completely anechoic. No significant change from prior. IMPRESSION: Symmetric blood flow to both testicles documented. No right groin hernia or suspicious ad enopathy noted.
--- NOTE | 2021-04-01 14:48 | ED ---
Medical Decision Making - Lab Data Lab Results 04/01/21 Range/Units 13:29 Urine Color Yellow Urine Appearance Clear (Clear) Urine pH 5.5 (5.0-8.0) Ur Specific [place] 1.024 (1.001-1.035) Urine Protein Negative (Negative) Urine Glucose (UA) Negative (Negative) Urine Ketones Negative (Negative) Urine Blood Negative (Negative) Urine Nitrite Negative (Negative) Urine Bilirubin Negative (Negative) Urine Urobilinogen <2.0 (<2.0) mg/dL Ur Leukocyte Esterase Negative (Negative) Disposition Clinical Impression: Testicular pain Disposition: HOME SELF-CARE Condition: Fair Instructions (If sedation given, give patient instructions): Testicle Pain (ED) Additional Instructions: Call Dr. Garcia's office and notify staff that ER doctor spoke w Dr. Garcia about having a appointment sooner than previously scheduled. Prescriptions: HYDROcodone/APAP 5-325MG [[place] 5-325] 1 tab PO Q6HR PRN 3 Days #12 tab PRN Reason: Severe Pain Is patient prescribed a controlled substance at d/c from ED?: Yes If prescribed controlled substance>3 days was MAPS reviewed?: Prescribed <3 Days Referrals: Marcial Garcia MD [STAFF PHYSICIAN] - 1-2 days
== END 2021-04-01 14:47 | disposition home or self-care (01) ==
LOC: EC 12:00
DX: N50.812 Left testicular pain (principal); J44.9 Chronic obstructive pulmonary disease, unspecified; I10 Essential (primary) hypertension; F32.9 Major depressive disorder, single episode, unspecified; F41.9 Anxiety disorder, unspecified; F90.9 Attention-deficit hyperactivity disorder, unspecified type; F17.200 Nicotine dependence, unspecified, uncomplicated; B18.2 Chronic viral hepatitis C; Z88.1 Allergy status to other antibiotic agents; Z90.49 Acquired absence of other specified parts of digestive tract
CPT/HCPCS: 76870; 81003; 93975; 99284

== ENCOUNTER 2021-04-17 16:32 | Emergency (ER) | payer OTHER ==
[2021-04-17 17:20] VITALS: BP 139/92; TEMP 98.1
[2021-04-17] MEDS ORDERED: IPRATROPIUM-ALBUTEROL 3 ML NEB INHALATION STA (18:16)
[2021-04-17] MEDS ORDERED: methylPREDNISolone SOD SUCCI 125 MG/2 ML VIAL IV STA (18:16)
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
[2021-04-17 18:43] LABS: Basophils # (A) 0.1 k/uL (0-0.2); Basophils % (A) 0 %; Eosinophils # (A) 0.2 k/uL (0-0.7); Eosinophils % (A) 1 %; HCT 45.6 % (39.0-53.0); HGB 14.7 gm/dL (13.0-17.5); Lymphocytes # (A) 3.6 k/uL (1.0-4.8); Lymphocytes % (A) 29 %; MCH 31.4 pg (25.0-35.0); MCHC 32.2 g/dL (31.0-37.0); MCV 97.4 fL (80.0-100.0); Mean Platelet Volume 7.5; Monocytes # (A) 0.7 k/uL (0-1.0); Monocytes % (A) 5 %; Neutrophils # (A) 7.6 k/uL (1.3-7.7); Neutrophils % (A) 62 %; Platelet Count 284 k/uL (150-450); RBC 4.68 m/uL (4.30-5.90); RDW 13.4 % (11.5-15.5); WBC 12.3 k/uL (3.8-10.6)
[2021-04-17 18:47] LABS: ALT 46 U/L (4-49); AST 35 U/L (17-59); African American GFR (CKD) >90 (>60 ml/min/1.73 sqM); Alkaline Phosphatase 98 U/L (38-126); Anion Gap 5 mmol/L; Blood Urea Nitrogen 16 mg/dL (9-20); Calcium 9.2 mg/dL (8.4-10.2); Carbon Dioxide 33 mmol/L (22-30); Chloride 100 mmol/L (98-107); Glucose 82 mg/dL (74-99); Non-African American GFR(CKD) >90 (>60 ml/min/1.73 sqM); Potassium 4.7 mmol/L (3.5-5.1); Sodium 138 mmol/L (137-145); Total Bilirubin 0.3 mg/dL (0.2-1.3); Total Protein 7.3 g/dL (6.3-8.2)
[2021-04-17 18:54] VITALS: RESP 18
[2021-04-17 18:58] LABS: INR 0.9 (<1.2); Partial Thromboplastin Time 25.5 sec (22.0-30.0); Prothrombin Time 9.9 sec (9.0-12.0)
--- NOTE | 2021-04-17 19:03 | XR ---
EXAMINATION TYPE: XR chest 2V DATE OF EXAM: 04/17/2021 COMPARISON: 03/12/2021 HISTORY: Cough TECHNIQUE: 2 views FINDINGS: There is no heart failure nor confluent pneumonic infiltrate. Costophrenic angles show no d efinite fluid. Bony thorax is intact. There is slight blunting of the right costophrenic angle. There are chest leads. IMPRESSION: No active cardiopulmonary disease. Normal heart. No change. Pleural diaphragmatic reactio n at the right lung base unchanged.
[2021-04-17 19:29] VITALS: PULSE 54
== END 2021-04-17 19:28 | disposition home or self-care (01) ==
LOC: EC 16:32
DX: J45.909 Unspecified asthma, uncomplicated (principal); I10 Essential (primary) hypertension; B18.2 Chronic viral hepatitis C; F41.9 Anxiety disorder, unspecified; F90.9 Attention-deficit hyperactivity disorder, unspecified type; F32.9 Major depressive disorder, single episode, unspecified; F43.12 Post-traumatic stress disorder, chronic; F17.200 Nicotine dependence, unspecified, uncomplicated; Z20.822 Contact with and (suspected) exposure to COVID-19; Z88.1 Allergy status to other antibiotic agents; Z90.49 Acquired absence of other specified parts of digestive tract
CPT/HCPCS: 99285; 96374; 36415; 94640; 93005; 85379; 80053; 83605; 85025; 85610; 85730; 87040; 87635; 71046; J2930

== ENCOUNTER → 2021-04-19 | Outpatient (CLI) | payer OTHER ==
--- NOTE | 2021-04-20 17:23 | CT ---
EXAMINATION TYPE: CT pelvis w con DATE OF EXAM: 04/19/2021 COMPARISON: 03/20/2019 HISTORY: 40-year-old male R59.9, Lymphadenopathy, groin pain. TECHNIQUE: Contiguous axial scanning of the pelvis following administration of 100 ml Isovue 300 IV c ontrast. Delayed images through the bladder and coronal/sagittal reconstructions performed. CT DLP: 2075 mGycm Automated exposure control for dose reduction was used. FINDINGS: There is surgical material in the right lower quadrant suggesting prior appendectomy. Single dropped surgical clip posterior to the bladder. No dilated small bowel seen in the lower abdomen or pelvis. Mild overall stool burden. Very minimal d iverticular change in the proximal sigmoid colon. Postsurgical change of bilateral inguinal mesh repair. No inguinal or femoral canal hernia seen. Underdistention of the bladder limits evaluation. Prostate gland borderline enlarged at 4.0 cm. No abnormal fluid collection in pelvis or pelvic lymphadenopathy. Bones: There is a left L5 hemisacralization noted. Diffuse disc bulge above at L4-L5 may contribute t o a moderate spinal canal stenosis. There may be moderate bilateral neuroforaminal stenoses at this l evel. IMPRESSION: 1. PRIOR MESH REPAIR AT THE BILATERAL INGUINAL REGIONS, THE LEFT SIDE BEING NEW FROM 03/20/2019. NO DI SCRETE HERNIA IS IDENTIFIED. NO SUSPICIOUS LYMPHADENOPATHY IDENTIFIED IN THE PELVIS. 2. MINIMAL DIVERTICULOSIS SIGMOID COLON. 3. LEFT L5 HEMISACRALIZATION WITH DISC BULGE ABOVE AT L4-L5 MAY CONTRIBUTE TO MODERATE SPINAL CANAL S TENOSIS.
== END | disposition home or self-care (01) ==
LOC: RADCTMAIN 14:35
PROVIDERS: ATTEND Urology
DX: M51.26 Other intervertebral disc displacement, lumbar region (principal); M48.061 Spinal stenosis, lumbar region without neurogenic claudication; K57.30 Diverticulosis of large intestine without perforation or abscess without bleeding
CPT/HCPCS: 72193; Q9967